=== PATIENT | male | born 1940 | race Caucasian/White ===

== ENCOUNTER 2016-11-13 17:47 | Emergency (ER) | payer MEDICARE ==
[~2016-11-13] VITALS: Ht 180.3 cm; Wt 86.9 kg
[~2016-11-13 17:47] MED LIST: ALBU18HF2 INH; ARFO15VI2 IH; BUME2TAB18 PO; CARB300C10 PO; CLOP75TA33 PO; DABI150C PO; DOCU-168 PO; ESCI20TA22 PO; FERR-67 PO; GABA-338 PO; HYDR-4074 PO; IPRA3AMP AEROSOL; ISOS120T10 PO; LEVO50TA11 PO; METO50TA5 PO; MORP15TA71 PO; NITR0.4T38 SL; PANT40TA PO; POTA20TA PO; PRED-221 PO; PRIM50TA27 PO; SIMV10TA76 PO; SODI45SP7 EA NOSTRIL; SUCR1TAB29 PO; TRAZ-58 PO; [UNRECOGNIZED DRUG - CODE] PO
[2016-11-13 17:52] VITALS: Ht 180.3 cm; Wt 86.9 kg
--- OUTSIDE RECORDS SUMMARY | 2016-11-13 17:52 | XMS REPORT ---
Author Author [place], [facility] - Organization Unknown Address Unknown Phone Unavailable Allergies, Adverse Reactions, Alerts * Sulfa(Sulfonamide Antibiotics) causes Severe Anaphylaxis. * No Latex Allergy. * No IV Contrast Allergy. * No Known Food Allergies. Problems * Acute Pain* Status:Active. * Carotid Artery Stenosis* Status:Active. * COPD w/ Acute Lower Respiratory Infection* Status:Active. * Coronary Artery Bypass Grafts x 3* Status:Active. * Diabetes Mellitus, Type 2* Status:Active. * Skin Integrity Impairment* Status:Active. Procedures No Procedures Documented. Medication It is the responsibility of the patient or patient customer contact representative to confirm the list of medications with either the patient's personal care provider or the patient's follow-up care provider to ensure the patient has an appropriate list of medications to take at home. Discharge medications* arformoterol (Brovana) 15 mcg/2 mL Solution for Nebulization, Ordered By: Lloyd Amirani Directions: 2 mL by inhalation twice a day * budesonide (Pulmicort) 0.5 mg/2 mL Suspension for Nebulization, Ordered By: Lloyd Amirani Directions: 2 by inhalation twice a day * escitalopram (LexAPRO) 20 mg Tablet, Ordered By: Lloyd Amirani Directions: 1 tablet oral daily * furosemide 40 mg Tablet, Ordered By: Lloyd Amirani Directions: 1 tablet oral daily * magnesium oxide 400 mg Tablet, Ordered By: Lloyd Amirani Directions: 1 tablet oral daily * metFORMIN 1,000 mg Tablet, Ordered By: Lloyd Amirani Directions: 1 tablet oral twice a day with or after meal * nitroglycerin 0.4 mg Tablet, Sublingual, Ordered By: Lloyd Amirani Directions: 1 tablet sublingual every 5 minutes PRN chest pain * pantoprazole 20 mg Tablet, Delayed Release (E.C.), Ordered By: Lloyd Amirani Directions: 1 tablet oral daily before dinner * potassium chloride 10 mEq Tablet Extended Release, Ordered By: Lloyd Pradhanrani Directions: 2 tablet oral daily * primiDONE 50 mg Tablet, Ordered By: Lloyd Pradhanrani Directions: 2 tablet oral daily at bedtime * simvastatin 10 mg Tablet, Ordered By: Lloyd Pradhanrani Directions: 1 tablet oral daily at bedtime * traMADol 50 mg Tablet, Ordered By: Lloyd Pradhanrani Directions: 1 tablet oral every six hours PRN pain * sucralfate 1 gram Tablet, Ordered By: Lloyd Pradhanrani Directions: 1 tablet oral daily at bedtime * traZODone 100 mg Tablet, Ordered By: Lloyd Pradhanrani Directions: 1 tablet oral daily at bedtime * amiodarone (Pacerone) 200 mg Tablet, Ordered By: Lloyd Pradhanrani Directions: 1 tablet oral twice a day * aspirin 81 mg Tablet, Chewable, Ordered By: Lloyd Pradhanrani Directions: 1 tablet oral Daily at 8 AM _ * bisacodyl 5 mg Tablet, Delayed Release (E.C.), Ordered By: Lloyd Pradhanrani Directions: 2 tablet oral twice a day PRN constipation * carvedilol 3.125 mg Tablet, Ordered By: Lloyd Pradhanrani Directions: 1 tablet oral twice a day during meal * docusate sodium (Stool Softener) 100 mg Capsule, Ordered By: Lloyd Pradhanrani Directions: 2 capsule oral daily Constipation Additional Instructions: START POD #1 HOLD FOR LOOSE STOOLS * HYDROcodone-acetaminophen 5 mg-500 mg Tablet, Ordered By: Lloyd Pradhanrani Directions: 1-2 TABS oral every four hours PRN MILD/MODERATE PAIN * polyethylene glycol 3350 17 gram/dose Powder, Ordered By: Lloyd Pradhanrani Directions: 1 each oral daily * Follow up with Dr. Pabon December 13 at 2:15 * Follow up with Dr. Mae in about 4 weeks. Office will call to schedule. If not please call the office at [phone] * Do not drive or ride in the front seat for 4 weeks. * Slowly increase activity, get plenty of rest * Refer to patient plan for more information * predniSONE 20 mg Tablet, Ordered By: Lloyd Valle Directions: -- oral daily Stopped medications* metoprolol succinate 50 mg Tablet Extended Release 24 hr Directions: 1 tablet oral daily Results LAB--BEDSIDE TESTING from 11/24/2012 7:20 AMGlucose NPT 96 mg/dL (70-100 mg/dL) LAB--BEDSIDE TESTING from 11/24/2012 9:51 AMBase Excess Arterial NPT 5 H (0-2 ) Calcium Ionized Arterial NPT 1.19 mmol/L (1.19-1.41 mmol/L) Glucose Arterial NPT 113 mg/dL H (70-100 mg/dL) Bicarbonate Arterial NPT 30 mEq/L H (22-26 mEq/L) HCT Arterial NPT 38.0 % HGB Arterial NPT 12.9 g/dL Potassium Arterial NPT 3.6 mEq/L (3.6-5.1 mEq/L) Sodium Arterial NPT 139 mEq/L (136-144 mEq/L) O2 Saturation Arterial NPT 100.0 % H (90.0-97.0 %) PCO2 Arterial NPT 51 mmHg H (35-45 mmHg) pH Arterial NPT 7.38 (7.35-7.45 ) PO2 Arterial NPT 455 mmHg H (80-100 mmHg) Total CO2 Arterial NPT 31 mEq/L H (23-27 mEq/L) Activated Clotting Time NPT 122 secs (100-146 secs) LAB--BEDSIDE TESTING from 11/24/2012 12:13 PMActivated Clotting Time NPT 567 secs H (100-146 secs) LAB--BEDSIDE TESTING from 11/24/2012 12:14 PMBase Excess Arterial NPT 12 H (0-2 ) Calcium Ionized Arterial NPT 1.18 mmol/L L (1.19-1.41 mmol/L) Glucose Arterial NPT 160 mg/dL H (70-100 mg/dL) Bicarbonate Arterial NPT 37 mEq/L H (22-26 mEq/L) HCT Arterial NPT 38.0 % HGB Arterial NPT 12.9 g/dL Potassium Arterial NPT 4.1 mEq/L (3.6-5.1 mEq/L) Sodium Arterial NPT 140 mEq/L (136-144 mEq/L) O2 Saturation Arterial NPT 100.0 % H (90.0-97.0 %) PCO2 Arterial NPT 64 mmHg HH (35-45 mmHg) pH Arterial NPT 7.37 (7.35-7.45 ) PO2 Arterial NPT 494 mmHg H (80-100 mmHg) Total CO2 Arterial NPT 39 mEq/L H (23-27 mEq/L) LAB--BEDSIDE TESTING from 11/24/2012 12:38 PMActivated Clotting Time NPT 611 secs H (100-146 secs) LAB--BEDSIDE TESTING from 11/24/2012 12:39 PMBase Excess Arterial NPT 2 (0-2 ) Calcium Ionized Arterial NPT 1.05 mmol/L L (1.19-1.41 mmol/L) Glucose Arterial NPT 128 mg/dL H (70-100 mg/dL) Bicarbonate Arterial NPT 27 mEq/L H (22-26 mEq/L) HCT Arterial NPT 32.0 % HGB Arterial NPT 10.9 g/dL Potassium Arterial NPT 3.7 mEq/L (3.6-5.1 mEq/L) Sodium Arterial NPT 142 mEq/L (136-144 mEq/L) O2 Saturation Arterial NPT 100.0 % H (90.0-97.0 %) PCO2 Arterial NPT 45 mmHg (35-45 mmHg) pH Arterial NPT 7.39 (7.35-7.45 ) PO2 Arterial NPT 407 mmHg H (80-100 mmHg) Total CO2 Arterial NPT 28 mEq/L H (23-27 mEq/L) LAB--BEDSIDE TESTING from 11/24/2012 1:10 PMActivated Clotting Time NPT 485 secs H (100-146 secs) LAB--BEDSIDE TESTING from 11/24/2012 1:11 PMBase Excess Arterial NPT 3 H (0-2 ) Calcium Ionized Arterial NPT 1.08 mmol/L L (1.19-1.41 mmol/L) Glucose Arterial NPT 94 mg/dL (70-100 mg/dL) Bicarbonate Arterial NPT 27 mEq/L H (22-26 mEq/L) HCT Arterial NPT 31.0 % HGB Arterial NPT 10.5 g/dL Potassium Arterial NPT 3.7 mEq/L (3.6-5.1 mEq/L) Sodium Arterial NPT 143 mEq/L (136-144 mEq/L) O2 Saturation Arterial NPT 100.0 % H (90.0-97.0 %) PCO2 Arterial NPT 38 mmHg (35-45 mmHg) pH Arterial NPT 7.45 (7.35-7.45 ) PO2 Arterial NPT 319 mmHg H (80-100 mmHg) Total CO2 Arterial NPT 28 mEq/L H (23-27 mEq/L) LAB--BEDSIDE TESTING from 11/24/2012 1:41 PMActivated Clotting Time NPT 468 secs H (100-146 secs) LAB--BEDSIDE TESTING from 11/24/2012 1:42 PMBase Excess Arterial NPT 4 H (0-2 ) Calcium Ionized Arterial NPT 1.03 mmol/L L (1.19-1.41 mmol/L) Glucose Arterial NPT 105 mg/dL H (70-100 mg/dL) Bicarbonate Arterial NPT 27 mEq/L H (22-26 mEq/L) HCT Arterial NPT 29.0 % HGB Arterial NPT 9.9 g/dL Potassium Arterial NPT 3.7 mEq/L (3.6-5.1 mEq/L) Sodium Arterial NPT 143 mEq/L (136-144 mEq/L) O2 Saturation Arterial NPT 100.0 % H (90.0-97.0 %) PCO2 Arterial NPT 36 mmHg (35-45 mmHg) pH Arterial NPT 7.49 H (7.35-7.45 ) PO2 Arterial NPT 316 mmHg H (80-100 mmHg) Total CO2 Arterial NPT 28 mEq/L H (23-27 mEq/L) LAB--BEDSIDE TESTING from 11/24/2012 1:53 PMActivated Clotting Time NPT 600 secs H (100-146 secs) LAB--BEDSIDE TESTING from 11/24/2012 2:10 PMActivated Clotting Time NPT 540 secs H (100-146 secs) LAB--BEDSIDE TESTING from 11/24/2012 2:11 PMBase Excess Arterial NPT 3 H (0-2 ) Calcium Ionized Arterial NPT 1.02 mmol/L L (1.19-1.41 mmol/L) Glucose Arterial NPT 130 mg/dL H (70-100 mg/dL) Bicarbonate Arterial NPT 27 mEq/L H (22-26 mEq/L) HCT Arterial NPT 29.0 % HGB Arterial NPT 9.9 g/dL Potassium Arterial NPT 3.7 mEq/L (3.6-5.1 mEq/L) Sodium Arterial NPT 142 mEq/L (136-144 mEq/L) O2 Saturation Arterial NPT 100.0 % H (90.0-97.0 %) PCO2 Arterial NPT 35 mmHg (35-45 mmHg) pH Arterial NPT 7.49 H (7.35-7.45 ) PO2 Arterial NPT 277 mmHg H (80-100 mmHg) Total CO2 Arterial NPT 28 mEq/L H (23-27 mEq/L) LAB--BEDSIDE TESTING from 11/24/2012 2:36 PMActivated Clotting Time NPT 111 secs (100-146 secs) LAB--BEDSIDE TESTING from 11/24/2012 2:37 PMBase Excess Arterial NPT 2 (0-2 ) Calcium Ionized Arterial NPT 1.32 mmol/L (1.19-1.41 mmol/L) Glucose Arterial NPT 119 mg/dL H (70-100 mg/dL) Bicarbonate Arterial NPT 28 mEq/L H (22-26 mEq/L) HCT Arterial NPT 28.0 % HGB Arterial NPT 9.5 g/dL Potassium Arterial NPT 3.4 mEq/L L (3.6-5.1 mEq/L) Sodium Arterial NPT 145 mEq/L H (136-144 mEq/L) O2 Saturation Arterial NPT 100.0 % H (90.0-97.0 %) PCO2 Arterial NPT 50 mmHg H (35-45 mmHg) pH Arterial NPT 7.35 (7.35-7.45 ) PO2 Arterial NPT 376 mmHg H (80-100 mmHg) Total CO2 Arterial NPT 29 mEq/L H (23-27 mEq/L) LAB--BEDSIDE TESTING from 11/24/2012 3:16 PMBase Excess Arterial NPT 3 H (0-2 ) Calcium Ionized Arterial NPT 1.23 mmol/L (1.19-1.41 mmol/L) Glucose Arterial NPT 132 mg/dL H (70-100 mg/dL) Bicarbonate Arterial NPT 29 mEq/L H (22-26 mEq/L) HCT Arterial NPT 35.0 % HGB Arterial NPT 11.9 g/dL Potassium Arterial NPT 4.1 mEq/L (3.6-5.1 mEq/L) Sodium Arterial NPT 143 mEq/L (136-144 mEq/L) O2 Saturation Arterial NPT 100.0 % H (90.0-97.0 %) PCO2 Arterial NPT 58 mmHg HH (35-45 mmHg) pH Arterial NPT 7.31 L (7.35-7.45 ) PO2 Arterial NPT 418 mmHg H (80-100 mmHg) Total CO2 Arterial NPT 31 mEq/L H (23-27 mEq/L) LAB--BEDSIDE TESTING from 11/24/2012 3:39 PMGlucose NPT 134 mg/dL H (70-100 mg/ dL) LAB--BEDSIDE TESTING from 11/24/2012 9:40 PMGlucose NPT 181 mg/dL H (70-100 mg/ dL) LAB--BEDSIDE TESTING from 11/24/2012 10:42 PMGlucose NPT 164 mg/dL H (70-100 mg/ dL) LAB--BEDSIDE TESTING from 11/24/2012 11:55 PMGlucose NPT 163 mg/dL H (70-100 mg/ dL) LAB--BEDSIDE TESTING from 11/25/2012 1:12 AMGlucose NPT 142 mg/dL H (70-100 mg/ dL) LAB--BEDSIDE TESTING from 11/25/2012 4:35 AMGlucose NPT 134 mg/dL H (70-100 mg/ dL) LAB--BEDSIDE TESTING from 11/25/2012 10:37 AMGlucose NPT 135 mg/dL H (70-100 mg/ dL) LAB--BEDSIDE TESTING from 11/25/2012 2:53 PMGlucose NPT 152 mg/dL H (70-100 mg/ dL) LAB--BEDSIDE TESTING from 11/25/2012 9:44 PMGlucose NPT 156 mg/dL H (70-100 mg/ dL) LAB--BEDSIDE TESTING from 11/26/2012 6:10 AMGlucose NPT 121 mg/dL H (70-100 mg/ dL) LAB--BEDSIDE TESTING from 11/26/2012 11:24 AMGlucose NPT 121 mg/dL H (70-100 mg/ dL) LAB--BEDSIDE TESTING from 11/26/2012 6:37 PMGlucose NPT 162 mg/dL H (70-100 mg/ dL) LAB--BEDSIDE TESTING from 11/26/2012 9:47 PMGlucose NPT 123 mg/dL H (70-100 mg/ dL) LAB--BEDSIDE TESTING from 11/27/2012 6:02 AMGlucose NPT 90 mg/dL (70-100 mg/dL) LAB--BEDSIDE TESTING from 11/27/2012 11:57 AMGlucose NPT 157 mg/dL H (70-100 mg/ dL) LAB--BEDSIDE TESTING from 11/27/2012 5:20 PMGlucose NPT 178 mg/dL H (70-100 mg/ dL) LAB--BEDSIDE TESTING from 11/27/2012 9:35 PMGlucose NPT 120 mg/dL H (70-100 mg/ dL) LAB--BEDSIDE TESTING from 11/28/2012 5:07 AMGlucose NPT 101 mg/dL H (70-100 mg/ dL) LAB--BEDSIDE TESTING from 11/28/2012 12:37 PMGlucose NPT 151 mg/dL H (70-100 mg/ dL) LAB--BEDSIDE TESTING from 11/28/2012 2:48 PMGlucose NPT 138 mg/dL H (70-100 mg/ dL) LAB--BEDSIDE TESTING from 11/28/2012 8:07 PMGlucose NPT 159 mg/dL H (70-100 mg/ dL) LAB--BEDSIDE TESTING from 11/29/2012 5:22 AMGlucose NPT 104 mg/dL H (70-100 mg/ dL) LAB--BEDSIDE TESTING from 11/29/2012 11:32 AMGlucose NPT 121 mg/dL H (70-100 mg/ dL) LAB--BEDSIDE TESTING from 11/29/2012 4:31 PMGlucose NPT 122 mg/dL H (70-100 mg/ dL) LAB--BEDSIDE TESTING from 11/29/2012 9:40 PMGlucose NPT 122 mg/dL H (70-100 mg/ dL) LAB--BEDSIDE TESTING from 11/30/2012 5:35 AMGlucose NPT 110 mg/dL H (70-100 mg/ dL) LAB--BEDSIDE TESTING from 11/30/2012 11:47 AMGlucose NPT 136 mg/dL H (70-100 mg/ dL) LAB--BLOOD BANK from 11/24/2012 7:20 AMABO and Rh A POS Antibody Screen (Indirect Bud) NEG LAB--BLOOD BANK from 11/24/2012 8:01 AMRed Blood Cells Leukoreduced ( Preliminary Result)[facility] -1 [id number] selected 11/24/12 08:01 MSEVE [facility] -1 [id number] selected 11/24/12 08:01 MSEVE LAB--BLOOD BANK from 11/28/2012 1:10 AMRed Blood Cells Leukoreduced LAB--CHEMISTRY from 11/24/2012 3:34 PMAnion Gap 8 (3-20 ) BUN 9 mg/dL (4-20 mg/dL) Calcium 8.2 mg/dL L (8.6-10.0 mg/dL) Calcium Ionized 1.25 mmol/L (1.19-1.41 mmol/L) Chloride 107 mEq/L (99-109 mEq/L) CO2 26 mEq/L (22-32 mEq/L) Creatinine 0.94 mg/dL (0.64-1.27 mg/dL) eGFR >60 (>60- ) Glucose 139 mg/dL H (70-100 mg/dL) Potassium 4.3 mEq/L (3.6-5.1 mEq/L) Magnesium 2.2 mg/dL (1.8-2.5 mg/dL) Sodium 141 mEq/L (136-144 mEq/L) LAB--CHEMISTRY from 11/25/2012 3:57 AMAnion Gap 6 (3-20 ) BUN 13 mg/dL (4-20 mg/dL) Calcium 7.8 mg/dL L (8.6-10.0 mg/dL) Calcium Ionized 1.19 mmol/L (1.19-1.41 mmol/L) Chloride 112 mEq/L H (99-109 mEq/L) CO2 26 mEq/L (22-32 mEq/L) Creatinine 1.07 mg/dL (0.64-1.27 mg/dL) eGFR >60 (>60- ) Glucose 155 mg/dL H (70-100 mg/dL) Potassium 4.0 mEq/L (3.6-5.1 mEq/L) Magnesium 2.0 mg/dL (1.8-2.5 mg/dL) Sodium 144 mEq/L (136-144 mEq/L) LAB--CHEMISTRY from 11/26/2012 5:25 AMAnion Gap 5 (3-20 ) BUN 11 mg/dL (4-20 mg/dL) Calcium 7.9 mg/dL L (8.6-10.0 mg/dL) Calcium Ionized 1.20 mmol/L (1.19-1.41 mmol/L) Chloride 108 mEq/L (99-109 mEq/L) CO2 27 mEq/L (22-32 mEq/L) Creatinine 0.90 mg/dL (0.64-1.27 mg/dL) eGFR >60 (>60- ) Glucose 145 mg/dL H (70-100 mg/dL) Potassium 3.7 mEq/L (3.6-5.1 mEq/L) Magnesium 1.9 mg/dL (1.8-2.5 mg/dL) Sodium 140 mEq/L (136-144 mEq/L) LAB--CHEMISTRY from 11/28/2012 9:33 AMAnion Gap 7 (3-20 ) Albumin 2.8 g/dL L (3.5-4.8 g/dL) Alkaline Phosphatase 52 U/L (26-104 U/L) ALT (SGPT) 12 U/L L (17-63 U/L) AST (SGOT) 14 U/L L (15-41 U/L) Bilirubin Total 0.8 mg/dL (0.2-1.2 mg/dL) BUN 10 mg/dL (4-20 mg/dL) Calcium 8.3 mg/dL L (8.6-10.0 mg/dL) Chloride 106 mEq/L (99-109 mEq/L) CO2 28 mEq/L (22-32 mEq/L) Creatinine 0.79 mg/dL (0.64-1.27 mg/dL) eGFR >60 (>60- ) Globulin 2.6 g/dL (1.9-4.3 g/dL) Glucose 96 mg/dL (70-100 mg/dL) Potassium 3.7 mEq/L (3.6-5.1 mEq/L) Magnesium 1.9 mg/dL (1.8-2.5 mg/dL) Sodium 141 mEq/L (136-144 mEq/L) Protein 5.4 g/dL L (6.1-7.9 g/dL) LAB--CHEMISTRY from 11/29/2012 6:19 AMAnion Gap 6 (3-20 ) BUN 10 mg/dL (4-20 mg/dL) Calcium 8.3 mg/dL L (8.6-10.0 mg/dL) Chloride 108 mEq/L (99-109 mEq/L) CO2 28 mEq/L (22-32 mEq/L) Creatinine 0.81 mg/dL (0.64-1.27 mg/dL) eGFR >60 (>60- ) Glucose 97 mg/dL (70-100 mg/dL) Potassium 3.5 mEq/L L (3.6-5.1 mEq/L) Sodium 142 mEq/L (136-144 mEq/L) LAB--CHEMISTRY from 11/30/2012 4:37 AMAnion Gap 7 (3-20 ) BUN 14 mg/dL (4-20 mg/dL) Calcium 8.4 mg/dL L (8.6-10.0 mg/dL) Chloride 108 mEq/L (99-109 mEq/L) CO2 25 mEq/L (22-32 mEq/L) Creatinine 0.78 mg/dL (0.64-1.27 mg/dL) eGFR >60 (>60- ) Glucose 96 mg/dL (70-100 mg/dL) Potassium 3.9 mEq/L (3.6-5.1 mEq/L) Magnesium 2.0 mg/dL (1.8-2.5 mg/dL) Sodium 140 mEq/L (136-144 mEq/L) LAB--COAG STUDIES from 11/24/2012 2:43 PMFibrinogen 211 mg/dL (187-520 mg/dL) INR 1.3 H (0.9-1.2 ) PTT 29.1 sec (25.0-35.0 sec) LAB--COAG STUDIES from 11/29/2012 9:28 AMINR 1.0 (0.9-1.2 ) LAB--COAG STUDIES from 11/30/2012 4:37 AMINR 1.0 (0.9-1.2 ) LAB--HEMATOLOGY from 11/24/2012 2:43 PMPlatelet Count 211 K/uL (150-400 K/uL) LAB--HEMATOLOGY from 11/24/2012 3:34 PMAbsolute Basophils 0.00 THOUS (0.00-0.20 THOUS) Absolute Eosinophils 0.00 THOUS (0.00-0.50 THOUS) Absolute Lymphocytes 0.45 THOUS L (0.80-3.30 THOUS) Absolute Monocytes 1.13 THOUS H (0.30-1.00 THOUS) Absolute Neutrophils 21.02 THOUS H (1.90-7.00 THOUS) HCT 38.0 % L (42.0-52.0 %) HGB 12.0 g/dl L (14.0-18.0 g/dl) MCH 26.1 pg L (27.0-32.0 pg) MCHC 31.6 g/dL L (32.0-36.0 g/dL) MCV 82.8 fL (82.0-99.0 fL) MPV 9.1 fL L (9.4-12.3 fL) Platelet Count 223 K/uL (150-400 K/uL) RBC 4.59 M/uL L (4.60-6.20 M/uL) RDW 15.2 % H (11.5-14.5 %) WBC 22.6 K/uL H (4.8-10.8 K/uL) Bands 16 % H (0-8 %) Basophils 0 % (0-2 %) Eosinophils 0 % (0-4 %) Lymphocytes 2 % L (20-46 %) Monocytes 5 % (4-11 %) Nucleated RBC Automated 0.0 /100 WBC (0 /100 WBC) Differential Manual A Neutrophils 77 % H (51-75 %) LAB--HEMATOLOGY from 11/25/2012 3:57 AMAbsolute Basophils 0.04 THOUS (0.00-0.20 THOUS) Absolute Eosinophils 0.02 THOUS (0.00-0.50 THOUS) Absolute Lymphocytes 1.69 THOUS (0.80-3.30 THOUS) Absolute Monocytes 1.63 THOUS H (0.30-1.00 THOUS) Absolute Neutrophils 8.57 THOUS H (1.90-7.00 THOUS) HCT 35.4 % L (42.0-52.0 %) HGB 11.2 g/dl L (14.0-18.0 g/dl) MCH 26.7 pg L (27.0-32.0 pg) MCHC 31.6 g/dL L (32.0-36.0 g/dL) MCV 84.5 fL (82.0-99.0 fL) MPV 9.9 fL (9.4-12.3 fL) Platelet Count 243 K/uL (150-400 K/uL) RBC 4.19 M/uL L (4.60-6.20 M/uL) RDW 15.5 % H (11.5-14.5 %) WBC 12.0 K/uL H (4.8-10.8 K/uL) Basophils 0 % (0-2 %) Eosinophils 0 % (0-4 %) Immature Granulocytes 0.4 % (0.0-1.0 %) Lymphocytes 14 % L (20-46 %) Monocytes 14 % H (4-11 %) Nucleated RBC Automated 0.0 /100 WBC (0 /100 WBC) Neutrophils 71 % (51-75 %) LAB--HEMATOLOGY from 11/26/2012 5:25 AMHCT 34.8 % L (42.0-52.0 %) HGB 10.7 g/dl L (14.0-18.0 g/dl) MCH 26.3 pg L (27.0-32.0 pg) MCHC 30.7 g/dL L (32.0-36.0 g/dL) MCV 85.5 fL (82.0-99.0 fL) MPV 10.1 fL (9.4-12.3 fL) Platelet Count 238 K/uL (150-400 K/uL) RBC 4.07 M/uL L (4.60-6.20 M/uL) RDW 15.8 % H (11.5-14.5 %) WBC 13.3 K/uL H (4.8-10.8 K/uL) LAB--HEMATOLOGY from 11/28/2012 9:33 AMHCT 35.1 % L (42.0-52.0 %) HGB 10.9 g/dl L (14.0-18.0 g/dl) MCH 26.0 pg L (27.0-32.0 pg) MCHC 31.1 g/dL L (32.0-36.0 g/dL) MCV 83.6 fL (82.0-99.0 fL) MPV 9.9 fL (9.4-12.3 fL) Platelet Count 310 K/uL (150-400 K/uL) RBC 4.20 M/uL L (4.60-6.20 M/uL) RDW 15.6 % H (11.5-14.5 %) WBC 8.4 K/uL (4.8-10.8 K/uL) LAB--HEMATOLOGY from 11/29/2012 6:19 AMHCT 34.1 % L (42.0-52.0 %) HGB 10.6 g/dl L (14.0-18.0 g/dl) MCH 25.9 pg L (27.0-32.0 pg) MCHC 31.1 g/dL L (32.0-36.0 g/dL) MCV 83.4 fL (82.0-99.0 fL) MPV 9.6 fL (9.4-12.3 fL) Platelet Count 346 K/uL (150-400 K/uL) RBC 4.09 M/uL L (4.60-6.20 M/uL) RDW 15.8 % H (11.5-14.5 %) WBC 8.2 K/uL (4.8-10.8 K/uL) LAB--HEMATOLOGY from 11/30/2012 4:37 AMHCT 33.5 % L (42.0-52.0 %) HGB 10.7 g/dl L (14.0-18.0 g/dl) MCH 26.6 pg L (27.0-32.0 pg) MCHC 31.9 g/dL L (32.0-36.0 g/dL) MCV 83.1 fL (82.0-99.0 fL) MPV 9.8 fL (9.4-12.3 fL) Platelet Count 376 K/uL (150-400 K/uL) RBC 4.03 M/uL L (4.60-6.20 M/uL) RDW 15.8 % H (11.5-14.5 %) WBC 8.9 K/uL (4.8-10.8 K/uL) LAB--MICROBIOLOGY from 11/24/2012 7:28 AMMRSA Surveillance Culture A Source: Nares Collected: 11/24/12 07:28 Site: Received : 11/24/12 07:45 Order#: [id number] Surveillance Culture FINAL 11/25/12 08:35 Positive for Methicillin Resistant Staphylococc LORENZANA FOR RESULTS: * - NEW RESULT - RESULT WAS MODIFIED AFTER FINAL STATUS SET
--- OUTSIDE RECORDS SUMMARY | 2016-11-13 17:52 | XMS REPORT | Continuity of Care Document ---
Author Author [facility] Organization [facility] Address Unknown Phone Unavailable Allergies Active Description Code Type Severity Reaction Onset Reported/Identified Relationship to Patient Clinical Status Yes Sulfa(Sulfonamide Antibiotics) Drug Allergy Severe Anaphylaxis 01/05/2012 Yes No Known Food Allergies Food Allergy 11/23/2012 Yes sulfamethoxazole NKMA Severe Anaphylaxis 12/05/2013 Medications Problems Date Dx Coded Attending Type Code Diagnosis Diagnosed By 05/15/2012 Fredy Quintana MD Final 038.9 SEPTICEMIA NOS 05/15/2012 Fredy Quintana MD Final 250.62 DM2/NOS W NEUR MANIF UNC 05/15/2012 Fredy Quintana MD Final 272.4 HYPERLIPIDEMIA NEC NOS 05/15/2012 Fredy Quintana MD Final 311 DEPRESSIVE DISORDER NEC 05/15/2012 Fredy Quintana MD Final 333.1 TREMOR NEC 05/15/2012 Fredy Quintana MD Final 357.2 NEUROPATHY IN DIABETES 05/15/2012 Fredy Quintana MD Final 401.9 HYPERTENSION NOS 05/15/2012 Fredy Quintana MD Final 416.8 CHR PULMON HEART DIS NEC 05/15/2012 Fredy Quintana MD Final 433.10 CAROTID OCCL S INFARCT 05/15/2012 Fredy Quintana MD Final 486 PNEUMONIA ORGANISM NOS 05/15/2012 Fredy Quintana MD Final 491.21 OCB W EXACERBATION 05/15/2012 Fredy Quintana MD Final 518.84 AC CHR RESP FAILURE 05/15/2012 Fredy Quintana MD Final 530.81 ESOPHAGEAL REFLUX 05/15/2012 Fredy Quintana MD Final 553.3 DIAPHRAGMATIC HERNIA 05/15/2012 Fredy Quintana MD Final 600.00 PROS HYPERTR S OBST/LUTS 05/15/2012 Fredy Quintana MD Final 715.90 OSTEOARTHOSIS NOS-NOS 05/15/2012 Fredy Quintana MD Final 785.0 TACHYCARDIA NOS 05/15/2012 Fredy Quintana MD Admitting 786.59 CHEST PAIN NEC 05/15/2012 Fredy Quintana MD Final 995.92 SEVERE SEPSIS 11/22/2012 Wilma Pabon MD Final 440.0 AORTIC ATHEROSCLEROSIS 11/22/2012 Wilma Pabon MD Final 447.1 ARTERIAL STRICTURE 11/22/2012 Wilma Pabon MD Final 496 CHRONIC AIRWAY OBSTR NEC 11/22/2012 Wilma Pabon MD Final V72.63 PRE-PX LABORATORY EXAM 11/22/2012 Wilma Pabon MD Final V72.81 PREOP CV EXAM 11/22/2012 Wilma Pabon MD Final V72.83 PREOP EXAMINATION NEC 11/24/2012 Lloyd Valle MD Final 250.60 DM2/NOS W NEUR MANIF NSU 11/24/2012 Lloyd Valle MD Final 272.4 HYPERLIPIDEMIA NEC NOS 11/24/2012 Lloyd Valle MD Final 285.1 ACUTE POSTHEMOR ANEMIA 11/24/2012 Lloyd Valle MD Final 357.2 NEUROPATHY IN DIABETES 11/24/2012 Lloyd Valle MD Final 401.9 HYPERTENSION NOS 11/24/2012 Lloyd Valle MD Final 414.01 COR -[place] VESSEL 11/24/2012 Lloyd Valle MD Final 416.8 CHR PULMON HEART DIS NEC 11/24/2012 Lloyd Valle MD Final 427.31 ATRIAL FIBRILLATION 11/24/2012 Lloyd Valle MD Final 440.0 AORTIC ATHEROSCLEROSIS 11/24/2012 Lloyd Valle MD Final 496 CHRONIC AIRWAY OBSTR NEC 11/24/2012 Lloyd Valle MD Final 518.83 CHR RESPIRATORY FAILURE 03/21/2015 Lloyd Valle MD Final 053.13 POSTHERPETIC POLYNEUROPATHY 03/21/2015 Lloyd Valle MD Final 250.00 Diabetes mellitus without mention of complication, type II or unspecified t 03/21/2015 Lloyd Valle MD Final 278.01 MORBID OBESITY 03/21/2015 Lloyd Valle MD Final 311 DEPRESSIVE DISORDER, NOT ELSEWHERE CLASSIFIED 03/21/2015 Lloyd Valle MD Final 414.01 CORONARY ATHEROSCLEROSIS OF [place] CORONARY ARTERY 03/21/2015 Lloyd Valle MD Final 427.31 ATRIAL FIBRILLATION 03/21/2015 Lloyd Valle MD Final 440.23 ATHEROSCLEROSIS OF [place] ARTERIES OF THE EXTREMITIES WITH ULCERATION 03/21/2015 Lloyd Valle MD Final 491.21 Obstructive chronic bronchitis with ( acute) exacerbation 03/21/2015 Lloyd Valle MD Admitting 786.50 UNSPECIFIED CHEST PAIN 03/21/2015 Lloyd Valle MD Final V58.61 Long-Term (Current) Use of Anticoagulants Procedures Code Description Performed By Performed On 36.13 AO-COR BYPASS-3 COR ART Wilma Pabon MD 11/24/2012 39.61 EXTRACORPOREAL CIRCULAT Wilma Pabon MD 11/24/2012 86.11 Closed Biopsy of Skin and Subcutaneous Tissue 03/11/2015 Results Encounters ACCT No. Visit Date/Time Discharge Status Pt. Type Provider Facility Loc./Unit Complaint [id number] 11/24/2012 06:55:00 2012 15:01:00 DIS Inpatient Lloyd Valle MD [facility] F4 [id number] 11/22/2012 16:33:00 2012 23:59:59 CLS Outpatient Wilma Pabon MD [facility] FO [id number] 05/15/2012 10:07:00 2011 14:50:00 DIS Inpatient Fredy Quintana MD [facility] [id number]
--- OUTSIDE RECORDS SUMMARY | 2016-11-13 17:52 | XMS REPORT | Continuity of Care Document ---
Author Author [facility] Organization [facility] Address Unknown Phone Unavailable Support Name Relationship Address Phone KIET GARRIDO DO Caregiver [facility] [address] [facility] [address] [place] [phone] LYNNETTE LUKE Next Of Kin [address] [place], [place] [id number] Insurance Providers Payer Name Policy Number Subscriber Name Relationship Medicare [id number] Benito Luke 18 Self Advance Directives Directive Response Recorded Date/Time Ordered Resuscitation Status Full Code 10/29/14 6:17pm Resuscitation Documents on File No 10/29/14 6:08pm Chief Complaint and Reason for Visit Chief Complaint ANGINA, CORONARY ARTERY DISEASE Reason for Visit S/P CABG (coronary artery bypass graft) Angina pectoris, unstable Problems Medical Problems Problem Onset Date Status Cellulitis Unknown Active Sepsis Unknown Resolved Tremor Unknown Active Gastroenteritis Unknown Active Dehydration Unknown Active Gastroenteritis Unknown Resolved Diabetes Unknown Active HTN (hypertension) Unknown Active CAD (coronary artery disease) Unknown Active COPD (chronic obstructive pulmonary disease) Unknown Active Chronic respiratory insufficiency Unknown Active Hypercholesteremia Unknown Active Encephalopathy acute Unknown Active Bandemia Unknown Active Hypotension Unknown Resolved Physical debility Unknown Active Angina pectoris, unstable Unknown Active Surgical Problems Problem Onset Date Recorded Date/Time Status S/P CABG (coronary artery bypass graft) Unknown 10/30/2014 9:06am Active Medications Medication Dose Route Sig Days/Qty Instructions Order Date Discontinued Date Status Nitroglycerin 0.3 Mg SL NEEDED 06/25/09 01/04/12 Discontinued Aspirin 81 Mg PO DAILY 05/30/10 01/04/12 Discontinued Digoxin 250 Mcg PO DAILY 05/30/10 08/18/10 Discontinued Arformoterol Tartrate 15 Mcg IH Q12H 11/27/08 12/11/08 Discontinued Calcium Carbonate/Vitamin D3 1 Tab PO DAILY 05/30/10 01/04/12 Discontinued Magnesium Oxide 400 Mg PO TWICE A DAY 05/30/10 01/04/12 Discontinued Potassium 10 Meq PO DAILY 05/30/10 01/04/12 Discontinued Prednisone 20 Mg PO DAILY 05/30/10 01/04/12 Discontinued Sertraline Hcl 100 Mg PO DAILY 11/27/08 12/11/08 Discontinued Terazosin Hcl 1 Mg PO BEDTIME 05/30/10 01/04/12 Discontinued Trazodone Hcl 100 Mg PO BEDTIME 05/30/10 01/04/12 Discontinued Albuterol 17 Gm IH DAILY 05/30/10 01/04/12 Discontinued Rabeprazole Sodium 20 Mg PO DAILY 11/27/08 12/11/08 Discontinued Budesonide 0.5 Mg NEB TWICE A DAY 06/26/09 01/04/12 Discontinued Lisinopril 2.5 Mg PO DAILY 05/30/10 01/04/12 Discontinued Isosorbide Mononitrate 60 Mg PO DAILY 05/30/10 01/04/12 Discontinued Metoprolol Tartrate 50 Mg PO TWICE A DAY 05/30/10 01/04/12 Discontinued Furosemide 40 Mg PO IN AM 06/26/09 01/04/12 Discontinued Furosemide 20 Mg PO DAILY AT 1400 06/26/09 05/30/10 Discontinued Sucralfate 1 G PO BEDTIME 05/30/10 01/04/12 Discontinued Diltiazem Hcl 180 Mg PO DAILY 06/26/09 01/04/12 Discontinued Citalopram Hydrobromide 40 Mg PO DAILY 05/30/10 01/04/12 Discontinued Omeprazole Magnesium 40 Mg PO DAILY 05/30/10 01/04/12 Discontinued Arformoterol Tartrate 15 Mcg NEB TWICE A DAY 05/30/10 01/04/12 Discontinued Furosemide 20 Mg PO TWICE A DAY 05/30/10 01/04/12 Discontinued Metformin Hcl 500 Mg PO TWICE A DAY 10/02/11 01/04/12 Discontinued Simvastatin 40 Mg PO DAILY 10/02/11 01/04/12 Discontinued Prednisone 20 Mg PO DAILY 01/04/12 Active Trazodone Hcl 100 Mg PO BEDTIME 01/04/12 Active Terazosin Hcl 1 Mg PO BEDTIME 01/04/12 06/16/12 Discontinued Metoprolol Succinate 50 Mg PO DAILY 01/04/12 12/04/12 Discontinued Metformin Hcl 1,000 Mg PO TWICE A DAY 01/04/12 Active Citalopram Hydrobromide 40 Mg PO BEDTIME 01/04/12 12/04/12 Discontinued Sucralfate 1 G PO BEDTIME 01/04/12 Active Omeprazole 20 Mg PO DAILY 01/04/12 12/04/12 Discontinued Lisinopril 2.5 Mg PO DAILY 01/04/12 12/04/12 Discontinued Magnesium Oxide 400 Mg PO TWICE A DAY 01/04/12 Active Albuterol Sulfate 5 Mg IH NEEDED 01/04/12 Active Arformoterol Tartrate 15 Mcg IH TWICE A DAY 01/04/12 Active Budesonide 0.5 Mg IH TWICE A DAY 01/04/12 10/30/14 Discontinued [Vitamin D] 05/26/12 12/04/12 Discontinued [Lexapro] 05/26/12 12/04/12 Discontinued Clindamycin Hcl 300 Mg PO THREE TIMES A DAY 4 Days 06/19/12 11/14/12 Discontinued Tramadol Hcl 50 Mg PO NEEDED 11/14/12 12/05/12 Discontinued Isosorbide Mononitrate 60 Mg PO DAILY 11/14/12 12/04/12 Discontinued Nitroglycerin 0.4 Mg SL NEEDED 11/14/12 12/05/12 Discontinued Amiodarone Hcl 200 Mg PO TWICE A DAY 12/04/12 10/29/14 Discontinued Escitalopram Oxalate 20 Mg PO DAILY 12/04/12 Active Aspirin 325 Mg PO DAILY 08/11/13 Active Pantoprazole Sodium 40 Mg PO TWICE DAILY ON EMPTY STOMACH 08/11/13 Active Simvastatin 10 Mg PO BEDTIME 08/11/13 Active Sucralfate 1 G PO 08/11/13 03/28/14 Discontinued Primidone 25 Mg PO BEDTIME 08/11/13 Active Polyethylene Glycol 3350 17 Gm PO NEEDED 08/11/13 Active Potassium Chloride 40 Meq PO GIVE WITH BREAKFAST 1 Qty 08/11/13 Active Albuterol Sulfate/Ipratropium 3 Ml Resp.T Tx Every 6 Hours 08/11/13 Active Bacitracin/Polymyxin B Sulfate 1 Udpkt TP DAILY 08/11/13 03/28/14 Discontinued Acetaminophen 1,000 Mg PO Q4-6H PRN 08/11/13 Active Magnesium Hydroxide/Al Hydrox 30 Ml PO Q3-4 PRN 08/11/13 Active Ondansetron Hcl/Pf 4 Mg IJ Q4-6HPRN 08/11/13 07/17/14 Discontinued Nitroglycerin 0.4 Mg SL Q5MPRN 08/11/13 Active Furosemide 1 Tab PO TWICE A DAY 03/27/14 Active Ondansetron 4 Mg PO EVERY SIX HOURS PRN NAUSEA &/OR VOMITING 30 Qty 04/2207/17/14 Discontinued Ondansetron HCl 4 Mg PO EVERY 4 HOURS PRN NAUSEA &/OR VOMITING 30 Qty 07/17/14 Active Acyclovir 800 Mg PO FIVE TIMES A DAY 10 Days 10/30/14 Active Social History Social History Problem Response Recorded Date/Time Chewing Tobacco Status No 09/01/2013 1:29pm Hx Substance Use No 07/14/2014 4:35pm Hx Alcohol Use No 07/14/2014 4:35pm Has the pt used tobacco in the last 12 months No 10/29/2014 6:09pm Tobacco Usage none 10/30/2014 9:53am Query Response Start Date Stop Date Smoking Status Former smoker Hospital Discharge Instructions Instructions: Care Instructions: Reason for Hospitalization: Chest pain, Left Heart Catheterization I was in the hospital because (patient own words): "MY HEART" Discharge Diet: Diabetic Discharge Activity: DO NOT DRIVE, OPERATE MACHINERY, DRINK ALCOHOL FOR 24 HRS. LIGHT ACTIVITY FOR 24 HRS. LIFT NO MORE THAN 10 POUNDS FOR 7 DAYS Follow Up Appointments: Follow up with Dr. Valle in 4-6 weeks. [phone]. Office will call with appointment time. Follow up with Dr. Garrido in 2 weeks. Call office on 10-31-14 to schedule appointment. Condition at time of discharge: Good Condition at time of discharge: Good worsening SOA, cough, fever > 101 General Information: n/a Condition at time of discharge: Fair Pass Plan of Care Discharge Date 10/30/14 8:40pm Disposition 01 DISCHARGED HOME, SELF-CARE Instructions/Education Provided [facility] Heart Cath Prescriptions See Medications Section Functional Status Query Response Date Recorded Physical Hygiene Assist July 17, 2014 9:51am Physical Hygiene Assist July 17, 2014 9:51am Allergies, Adverse Reactions, Alerts Allergen Type Severity Reaction Status Last Updated Sulfa (Sulfonamide Antibiotics) Allergy Unknown THROAT SWELLED Active TAPE Allergy Mild Active 08/03/13 Immunizations Name Given Type Hx Influenza Vaccination Y MAY 2014 Historical Hx Pneumococcal Vaccination Y 06/2010 Historical Hx Influenza Vaccination Y MAY 2014 Historical Vital Signs Acute Vital Signs Vital Response Date/Time Temperature (Fahrenheit) 98.6 deg F (96.8 - 99.1) Temperature (Calculated Celsius) 37.41987 degrees C (36.0 - 37.3) Temperature Source Temporal Pulse Rate (adult) 108 bpm (60 - 100) Respiratory Rate 20 breaths/min (10 - 20) O2 Sat by Pulse Oximetry 93 % (90 - 100) Oxygen Delivery Method Room Air Blood Pressure 141/77 mm Hg Blood Pressure Source Automatic Cuff Height 5 ft 11 in Weight 195 lb Body Mass Index 27.0 kg/m^2 Results Test Source Date Result Interp. Ref. Range Comments Acanthocytes August 12, 2013 1:00pm 1+ - COMMENT DAILY Activated Partial Thromboplast Time July 14, 2014 5:05pm 30.7 SEC N 24-36 Alanine Aminotransferase (ALT/SGPT) October 30, 2014 6:20am 35 U/L N 21- 72 Albumin October 30, 2014 6:20am 2.9 G/DL L 3.5-5.0 Albumin/Globulin Ratio October 30, 2014 6:20am 1.1 RATIO N 1.1-2.2 Alkaline Phosphatase October 30, 2014 6:20am 74 U/L N 38-126 Anion Gap October 30, 2014 6:20am 9 MEQ/L N 5-15 Anisocytosis July 15, 2014 4:04am 1+ - Anti-Streptolysin O Antibody Screen July 21, 2013 8:55am Negative - COMMENT TITER Arterial Blood Base Excess July 21, 2013 7:00pm -8.9 MMOL/L L -2.0- 2.0 COMMENT difficulty breathing Arterial Blood HCO3 July 21, 2013 7:00pm 16 MEQ/L L 22-26 COMMENT difficulty breathing Arterial Blood Oxygen Content July 21, 2013 7:00pm 15 - COMMENT difficulty breathing Arterial Blood Oxygen Saturation July 21, 2013 7:00pm 96.0 % N 95.0- 98.0 COMMENT difficulty breathing Arterial Blood Partial Pressure CO2 July 21, 2013 7:00pm 30 MMHG L 34-45 COMMENT difficulty breathing Arterial Blood Total CO2 July 21, 2013 7:00pm 16.7 MEQ/L L 23-27 COMMENT difficulty breathing Arterial Blood pH July 21, 2013 7:00pm 7.330 L 7.350-7.450 COMMENT difficulty breathing Arterial Blood pO2 at Patient Temp July 21, 2013 7:00pm 89 MMHG N 80 -100 COMMENT difficulty breathing Aspartate Amino Transf (AST/SGOT) October 30, 2014 6:20am 20 U/L N 17-59 B-Type Natriuretic Peptide November 06, 2010 4:25am 62 PG/ML N 15-100 COMMENT add to blood in lab from this morning BUN/Creatinine Ratio October 30, 2014 6:20am 16 RATIO N 6-26 Band Neutrophils # July 15, 2014 4:04am 1.5 T/MM3 - Band Neutrophils % July 15, 2014 4:04am 19.0 % DH 0-6 Basophils # (Auto) October 30, 2014 6:20am 0.0 T/MM3 N 0-0.2 Basophils # (Manual) August 13, 2013 5:50am 0.0 T/MM3 N 0-0.2 COMMENT DAILY Basophils % (Manual) August 13, 2013 5:50am 0.0 % N 0-2 COMMENT DAILY Basophils (%) (Auto) October 30, 2014 6:20am 0.5 % N 0-2 Blood Gas Tidal Volume May 30, 2010 4:25pm Not Performed 0-1200 Blood Gas Vent Rate May 30, 2010 4:25pm Not Performed 0-30 Blood Urea Nitrogen October 30, 2014 6:20am 19.0 MG/DL N 9-20 C-Reactive Protein December 20, 2013 6:00pm < 5.0 MG/L 0-9 C. difficile Toxin B Gene (PCR) July 14, 2014 11:45pm Negative - If Toxin A is clinically indicated, treat accordingly. Calcium Level October 30, 2014 6:20am 8.4 MG/DL N 8.4-10.2 Calculated Osmolality October 30, 2014 6:20am 268 MOSM/KG N 261-280 Carbon Dioxide Level October 30, 2014 6:20am 29 MEQ/L N 22-30 Carcinoembryonic Antigen March 15, 2013 1:00pm 1.31 UG/L N 0-3.0 COMMENT [id number], RN will call Chemistry Specimen Hemolysis October 30, 2014 6:20am 35 H 0-25 0-25: No Hemolysis.26-70: Slight Hemolysis - can falsely elevate K and Urine Protein. 71-285: Moderate Hemolysis - can falsely elevate K, Troponin I, CA 19-9, PTH, CSF GLucose, and Urine Protein, and can falsely decrease Phenytoin. 286-999: Gross Hemolysis - can falsely elevate K, Troponin I, CA 19-9, PTH, CSF Glucose, and Urine Protine, and can falsely decrease Phenytoin. Recommend specimen recollection. Chloride Level October 30, 2014 6:20am 100 MEQ/L N 98-107 Cholesterol Level January 05, 2012 4:30am 160 MG/DL N 132-199 Cholesterol/HDL Ratio January 05, 2012 4:30am 3.7 RATIO N 0-5.0 Clostridium difficile [id number] July 21, 2013 10:32am Negative - Has specimen been collected/obtained? Y Conjugated Bilirubin December 04, 2012 3:33pm 0.00 MG/DL N 0.00-0.30 Creatine Kinase MB July 27, 2013 8:08am 1.1 NG/ML N 0-3.4 COMMENT cpCOMMENT CP Creatine Kinase and CKMB Interpret October 30, 2014 6:20am 1.5 ng/mL - CKMB Mass performed at [facility] Reference Lab, [facility] [address] [place], [place] [address] Director Kishore Emerson DO Creatinine October 30, 2014 6:20am 1.2 MG/DL N 0.8-1.5 D-Dimer October 29, 2014 6:51pm 195 NG/ML N 0-230 <230 NG/ML D-DU= PRESUMPTIVE NEGATIVE FOR PE OR DVT>230 NG/ML D-DU=ADDITIONAL EVAL FOR PE OR DVT RECOMMENDED Differential Total Cells Counted November 10, 2010 5:40am 100 % - EKG June 21, 2009 11:20am Complete - Eosinophils # (Auto) October 30, 2014 6:20am 0.0 T/MM3 N 0-0.5 Eosinophils # (Manual) July 14, 2014 5:05pm 0.1 T/MM3 N 0-0.5 Eosinophils % (Manual) July 14, 2014 5:05pm 1.0 % N 0-4 Eosinophils (%) (Auto) October 30, 2014 6:20am 0.1 % N 0-4 Erythrocyte Sedimentation Rate December 20, 2013 6:00pm 9 MM/HR N 0-15 Escherichia coli 0157 Antigen July 22, 2013 1:25pm Negative - Has specimen been collected/obtained? Y Fungal Antibodies June 18, 2012 4:44am Send out - COMMENT with AM labs Globulin October 30, 2014 6:20am 2.6 G/DL N 2.4-3.6 Glomerular Filtration Rate Calc October 30, 2014 6:20am 59 - Glucometer October 30, 2014 6:22pm 94 mg/dL N 75-110 Glucose Level October 30, 2014 6:20am 103 MG/DL N 75-110 HDL Cholesterol Direct January 05, 2012 4:30am 43 MG/DL N 40-60 Hematocrit October 30, 2014 6:20am 35.9 % L 41-53 Hemoglobin October 30, 2014 6:20am 11.8 GM/DL L 13.5-17.5 Hemoglobin A1c November 06, 2010 4:25am 7.1 % H 6-7 <6.0 NON-DIABETIC RANGE6.0-7.0 ADA THERAPEUTIC RANGE >7.0 ACTION SUGGESTED Hypochromasia August 10, 2013 4:18am 1+ - Icterus Index October 30, 2014 6:20am < 2 0-7 Immature Granulocyte # (Auto) October 30, 2014 6:20am 0.15 T/MM3 H 0.00- 0.03 Immature Granulocyte % (Auto) October 30, 2014 6:20am 2.0 % H 0.0-0.5 Influenza Type A Antigen July 15, 2014 10:48am Negative - Negative for Flu A protein antigen. Assay sensitivity is90%. Influenza Type B Antigen July 15, 2014 10:48am Negative - Negative for Flu B protein antigen. Assay sensitivity is90%. LDL Cholesterol, Calculated January 05, 2012 4:30am 117 N 66-159 Lab Scanned Report December 20, 2013 7:34pm LAB TEST FORM REQUEST [id number] - Large Platelets August 10, 2013 4:18am Few - Lipase July 15, 2014 4:04am 19 U/L L 23-300 Lymphocytes # (Auto) October 30, 2014 6:20am 1.2 T/MM3 N 1-4.8 Lymphocytes # (Manual) July 15, 2014 4:04am 0.5 T/MM3 L 1-4.8 Lymphocytes % (Manual) July 15, 2014 4:04am 6.0 % L 23-45 Lymphocytes (%) (Auto) October 30, 2014 6:20am 16.0 % L 23-45 Magnesium Level October 30, 2014 6:20am 2.0 MG/DL N 1.6-2.3 Mean Corpuscular Hemoglobin October 30, 2014 6:20am 27.4 UUG N 26-34 Mean Corpuscular Hemoglobin Concent October 30, 2014 6:20am 32.9 GM/DL N 31-37 Mean Corpuscular Volume October 30, 2014 6:20am 83.5 UM3 N 80-100 Mean Platelet Volume October 30, 2014 6:20am 10.1 UM3 N 9.4-12.4 Metamyelocytes # July 27, 2013 5:05am 0.3 T/MM3 - Metamyelocytes % July 27, 2013 5:05am 2.0 % H 0-0 Monocytes # (Auto) October 30, 2014 6:20am 0.9 T/MM3 H 0-0.8 Monocytes # (Manual) July 15, 2014 4:04am 0.2 T/MM3 N 0-0.8 Monocytes % (Manual) July 15, 2014 4:04am 2.0 % N 0-9.0 Monocytes (%) (Auto) October 30, 2014 6:20am 11.8 % H 0-9.0 Myelocytes # July 27, 2013 5:05am 0.2 T/MM3 - Myelocytes % July 27, 2013 5:05am 1.0 % H 0-0 [id number] Natriuretic Peptide July 14, 2014 5:05pm 1530 PG/ML H 0-175 Rule in cut points: <50 years old=450; 50-75 years old=900; >75 years old=1800; When utilizing ProBNP rule-in cut points, adjustment for impaired renal function is typically not required. Neutrophils # (Auto) October 30, 2014 6:20am 5.2 T/MM3 N 1.8-7.7 Neutrophils # (Manual) July 15, 2014 4:04am 5.8 T/MM3 N 1.8-7.7 Neutrophils % (Manual) July 15, 2014 4:04am 72.0 % H 33-66 Neutrophils (%) (Auto) October 30, 2014 6:20am 69.6 % H 33-66 Nucleated Red Blood Cells August 11, 2013 5:11am 1 - Ovalocytes July 15, 2014 4:04am 1+ - Oxygen Delivery Method (LAB) July 23, 2013 2:55am Nasal cannula, liters - Phosphorus Level August 04, 2013 5:38am 3.1 MG/DL N 2.5-4.5 Platelet Count October 30, 2014 6:20am 217 T/MM3 N 130-400 Platelet Evaluation (Diff) August 10, 2013 4:18am Few - Poikilocytosis August 07, 2013 5:14am 2+ - Potassium Level October 30, 2014 6:20am 3.8 MEQ/L N 3.6-5 Prealbumin July 15, 2014 10:48am 15.5 MG/DL L 17.6-36.0 COMMENT feliciano Procalcitonin July 15, 2014 10:48am 0.53 NG/ML - PCT </=0.5 ng/ mL - sepsis not likely;PCT >0.5 and </=2 ng/mL - sepsis possible; PCT >2 ng/mL - sepsis likely; PCT >/=10 ng/mL - systemic inflammatory response - sepsis or septic shock highly indicated. Prolactin September 01, 2013 1:23pm 11.7 NG/ML - Normal Female (Non- ): 3.0-18.6 ng/ml;Males: 3.7-17.9 ng/ml Prothromb Time International Ratio July 14, 2014 5:05pm 1.05 N 0.81- 1.09 THERAPUTIC RANGE=2.00-3.00 FOR ANTI-THROMBOSIS THERAPUTIC RANGE=2.50- 3.50 FOR IMPLANTED VALVE RDW Standard Deviation October 30, 2014 6:20am 53.4 FL H 36.9-50.2 Reactive Lymphocytes # July 15, 2014 4:04am 0.1 T/MM3 H 0-0 Reactive Lymphocytes % July 15, 2014 4:04am 1.0 % H 0-0 Red Blood Count October 30, 2014 6:20am 4.30 M/MM3 L 4.50-5.90 Sodium Level October 30, 2014 6:20am 138 MEQ/L N 134-144 Stool Occult Blood July 14, 2014 11:45pm Negative - Stool for White Cells July 14, 2014 11:45pm Positive - Has specimen been collected/obtained? Y TB Test (QFT) CFP-10 June 18, 2012 4:44am Ref lab rpt scanned - - -- 06/20/12 1311 ---QUANTTB previously reported as: SEND OUT Thyroid Stimulating Hormone (TSH) October 29, 2014 6:51pm 16.50 MIU/L DH 0.47-4.68 Total Bilirubin October 30, 2014 6:20am 0.60 MG/DL N 0.20-1.30 Total Creatine Kinase October 30, 2014 6:20am 37 U/L L 55-170 Total Protein October 30, 2014 6:20am 5.5 G/DL L 6.3-8.2 Triglycerides Level January 05, 2012 4:30am 162 MG/DL H 40-160 Troponin I October 30, 2014 6:20am 0.019 ng/ml N 0-0.12 Turbidity October 30, 2014 6:20am < 20 0-20 Unconjugated Bilirubin December 04, 2012 3:33pm 0.10 MG/DL N 0.00-1.10 Urinalysis Comment July 14, 2014 5:56pm Microscopic not ind. - Has specimen been collected/obtained? Y Urine Bilirubin July 14, 2014 5:56pm Negative - Has specimen been collected/obtained? Y Urine Blood July 14, 2014 5:56pm Negative - Has specimen been collected/obtained? Y Urine Collection Type July 14, 2014 5:56pm Cleancatch-midstream - Has specimen been collected/obtained? Y Urine Color July 14, 2014 5:56pm Yellow - Has specimen been collected/obtained? Y Urine Glucose (UA) July 14, 2014 5:56pm Negative - Has specimen been collected/obtained? Y Urine Ketones July 14, 2014 5:56pm Trace H - Has specimen been collected/obtained? Y Urine Leukocyte Esterase July 14, 2014 5:56pm Negative - Has specimen been collected/obtained? Y Urine Microscopic Not Indicated January 04, 2012 3:45pm Not indicated - Has specimen been collected/obtained? Y Urine Nitrite July 14, 2014 5:56pm Negative - Has specimen been collected/obtained? Y Urine Protein July 14, 2014 5:56pm Negative - Has specimen been collected/obtained? Y Urine RBC December 20, 2007 9:05pm Not Performed - Urine Specific Baker July 14, 2014 5:56pm 1.025 - Has specimen been collected/obtained? Y Urine Turbidity July 14, 2014 5:56pm Clear - Has specimen been collected/obtained? Y Urine Urobilinogen July 14, 2014 5:56pm 0.2 EU/DL - Has specimen been collected/obtained? Y Urine WBC December 20, 2007 9:05pm Not Performed - Urine pH July 14, 2014 5:56pm 5.5 - Has specimen been collected/ obtained? Y VLDL Cholesterol January 05, 2012 4:30am 32.4 MG/DL H 0-28 Vancomycin Level Trough July 23, 2013 11:50pm 7.13 UG/ML L 15-20 COMMENT PER VANCO PROTOCOL, GIVE THE VANCO AFTER TROUGH DRAWN. WILL ADJUST LATER. Venous Blood Base Excess July 23, 2013 2:55am -5.3 MMOL/L L -2.0- 2.0 Venous Blood HCO3 July 23, 2013 2:55am 19 MEQ/L L 22-26 Venous Blood Lactate July 15, 2014 10:48am 1.0 MMOL/L N 0.6-2.2 COMMENT feliciano Venous Blood Oxygen Content July 23, 2013 2:55am 4 - Venous Blood Oxygen Saturation July 23, 2013 2:55am 96.0 % - Venous Blood Partial Pressure CO2 July 23, 2013 2:55am 33 MMHG L 40- 52 Venous Blood Partial Pressure O2 July 23, 2013 2:55am 81 MMHG H 40- 52 Venous Blood Total Carbon Dioxide July 23, 2013 2:55am 20.1 MEQ/L - Venous Blood pH July 23, 2013 2:55am 7.370 N 7.31-7.41 Vitamin B12 Level July 15, 2014 10:48am 442 PG/ML N 239-931 COMMENT feliciano White Blood Count October 30, 2014 6:20am 7.5 T/MM3 N 4.5-11.0 Blood Culture Peripheral Blood July 15, 2014 10:48am NO GROWTH AFTER 5 DAYS Shiga Toxin I & II Stool July 14, 2014 11:45pm Gram Stain Sputum-Expectorated Sputum November 05, 2010 12:45pm Gram Stain Chest February 14, 2013 1:50pm Name: BENITO LUKE Unit #: [id number] : [id number] Sex: M Loc / Svc: SRG DOS: Signed Report #: [id number] DIAGNOSTIC IMAGING REPORT TYPE OF EXAM: CHEST 1 VIEW Dictated By: IDRIS ROSS MD Indication: ITS.REASON: COPD CHEST 1 VIEW: Comparison: July 16, 2014 Findings: Left lower lobe consolidation has resolved in the interval. No new airspace disease. There is no pleural effusion or pneumothorax. The heart size, pulmonary vascularity and mediastinal contours are unchanged. Post sternotomy changes. Overlying monitoring leads. IMPRESSION: No acute cardiopulmonary disease. . Procedures No known history of procedures. Encounters Encounter Location Date/Time Discharged Inpatient [facility] 10/29/14 5:40pm Recent Diagnosis Angina pectoris, unstable
--- OUTSIDE RECORDS SUMMARY | 2016-11-13 17:53 | XMS REPORT | Continuity of Care Document ---
Author Author [facility] Organization [facility] Address Unknown Phone Unavailable Support Name Relationship Address Phone PAN HANLEY MD Caregiver [address] [facility] [address] [place] [address] Unavailable JORDAN CAMPOS MD Caregiver [address] [place] [address] Unavailable KIET GARRIDO DO Caregiver [address] [facility] [address] [place] [address] Unavailable LYNNETTE LUKE Next Of Kin [address] [place], [place] [id number] Insurance Providers Guarantor Benito Luke Address [address] [place] [address] Email [email or web address] Payer Medicare Policy Number [id number] Subscriber's Name Benito Luke Relationship 18 Self Payer [facility] Policy Number [id number] Subscriber's Name Benito Luke Relationship 18 Self Group Number [id number] Advance Directives Directive Response Recorded Date/Time Advanced Directives Type None 05/28/16 2:09pm Chief Complaint and Reason for Visit Chief Complaint Dyspnea/Respdistress Reason for Visit COPD (chronic obstructive pulmonary disease) Problems Active Problems Medical Problem Onset Date Status Angina pectoris, unstable Unknown Acute Arterial leg ulcer Unknown Resolved Atrial fibrillation with RVR ~07/25/2015 Resolved Bandemia Unknown Acute Bipolar 1 disorder, depressed Unknown Chronic CAD (coronary artery disease) Unknown Chronic CHF (congestive heart failure) Unknown Chronic COPD (chronic obstructive pulmonary disease) Unknown Chronic Cellulitis Unknown Acute Cellulitis Unknown Acute Cellulitis and abscess of lower extremity Unknown Resolved Cellulitis of left leg Unknown Acute Chronic back pain Unknown Chronic Chronic respiratory insufficiency Unknown Chronic Compression fracture of T12 vertebra Unknown Chronic Constipation Unknown Chronic Dehydration Unknown Acute Depression Unknown Chronic Diabetes Unknown Chronic 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 Diarrhea Unknown Resolved Edema Unknown Chronic Encephalopathy acute Unknown Resolved Episodes of speech arrest Unknown Acute Facial droop Unknown Acute GERD (gastroesophageal reflux disease) Unknown Chronic Gastroenteritis Unknown Resolved H/O sepsis Unknown HTN (hypertension) Unknown Chronic History of TIA (transient ischemic attack) Unknown Chronic Hypercholesteremia Unknown Chronic Hypokalemia Unknown Resolved Hypomagnesemia Unknown Acute Hypoxemia Unknown Acute Hypoxia Unknown Chronic Hypoxia Unknown Resolved Left displaced femoral neck fracture Unknown Acute Neuropathy involving both lower extremities Unknown Chronic Normocytic anemia Unknown Acute Osteoarthritis Unknown Chronic Overweight Unknown Chronic PAD (peripheral artery disease) Unknown Chronic PVD (peripheral vascular disease) Unknown Chronic Physical debility Unknown Chronic Pneumonia Unknown Acute Pulmonary hypertension Unknown Chronic Renal failure Unknown Resolved SIRS (systemic inflammatory response syndrome) Unknown Acute Sepsis affecting skin Unknown Resolved Septic shock Unknown Resolved Severe sepsis ~07/2015 Resolved Shingles Unknown Chronic Sinus tachycardia Unknown Acute Sinusitis Unknown Chronic Sleep apnea Unknown Chronic Thrombocytosis Unknown Resolved Tremor Unknown Chronic Trigeminal neuralgia Unknown Chronic Ulcer Unknown Chronic Yersinia enterocolitica food poisoning Unknown Surgical Problem Onset Date Status History of coronary artery bypass graft x 3 Unknown Chronic S/P CABG (coronary artery bypass graft) Unknown Chronic S/P hip hemiarthroplasty Unknown Acute Past Problems Medical Problem Onset Date Anemia Unknown Diarrhea Unknown Displaced fracture of left femoral neck Unknown Fall Unknown Generalized weakness Unknown Head injury, closed Unknown Hypokalemia due to loss of potassium Unknown Hypotension Unknown Leukocytosis Unknown Medications Current Home Medications Medication Dose Units Route Directions Days Qty Instructions Start Date Albuterol Sulfate (Ventolin Hfa 90 Mcg/Actuation) 18 Gm Hfa.aer.ad 1 Puff Inhalation As Needed 07/23/15 Arformoterol Tartrate (Brovana) 15 Mcg/2 Ml Vial.neb. 1 Vial Inhalation Twice A Day 01/04/12 Bumetanide 2 Mg Tablet 4 Mg Oral Daily 03/05/16 Carbamazepine 300 Mg Cpmp.12hr 300 Mg Oral Twice A Day 05/28/16 Chlorhexidine Gluconate (Hibiclens) 118 Ml Liquid 1 Applic Topically Daily APPLY TO SKIN SORES ON UPPER THIGHS AND SCROTUM 05/28/16 Clopidogrel Bisulfate (Clopidogrel) 75 Mg Tablet 75 Mg Oral Daily 03/22/16 Dabigatran Etexilate Mesylate (Pradaxa) 150 Mg Capsule 150 Mg Oral Twice A Day 10/02/15 Docusate Sodium (Colace) 100 Mg Capsule 100 Mg Oral Daily Doxycycline Hyclate 100 Mg Capsule 100 Mg Oral Every 12 Hours Escitalopram Oxalate (Lexapro) 20 Mg Tablet 20 Mg Oral Daily Ferrous Sulfate (Iron Supplement) 325 Mg Tablet 325 Mg Oral Twice A Day 03/05/16 Gabapentin 300 Mg Capsule 300 Mg Oral Three Times A Day 07/23/15 Guaifenesin (Guaifenesin Er) 600 Mg Tab.er.12h 600 Mg Oral Twice A Day 05/28/16 Hydrocodone/Apap 7.5/325 Mg ([place] 7.5-325 Tablet) 7.5-325 Tablet 1 Tab Oral Every 8 Hours as needed for Pain 03/05/16 Ipratropium/Albuterol Sulfate (Iprat-Albut 0.5-3(2.5) Mg/3 Ml) 3 Ml Ampul.neb 1 Vial Aerosol Tx. Every 6 Hours 05/28/16 Isosorbide Mononitrate (Isosorbide Mononitrate Er) 120 Mg Tab.er.24h 120 Mg Oral Daily 03/22/16 Levothyroxine Sodium 50 Mcg Tablet 50 Mcg Oral Before Breakfast 01/05/15 Metformin Hcl (Glucophage) 1,000 Mg Tablet 1,000 Mg Oral Twice A Day 01/04/12 Metoprolol Tartrate 50 Mg Tablet 50 Mg Oral Daily 03/05/16 Morphine Sulfate 15 Mg Tablet 15 Mg Oral Twice A Day 05/28/16 Nitroglycerin 0.4 Mg Tab.subl 0.4 Mg Sublingual Every 5 Minutes X 3 as needed for Chest Pain 08/11/13 Pantoprazole Sodium (Protonix) 40 Mg Tablet.dr 40 Mg Oral Before Breakfast 05/28/16 Potassium Chloride (K-Dur) 20 Meq Tab.prt.sr 20 Meq Oral Daily Prednisone 20 Mg Tablet 20 Mg Oral Daily 01/04/12 Prednisone 20 Mg Tablet 20 Mg Oral Per Comments 15 Tablet Take 3 tablets by mouth for 2 days, then 2 tablets by mouth daily for 3 days, then 1 tablet by mouth daily for 3 days then stop. 05/28/16 Primidone 50 Mg Tablet 50 Mg Oral Twice A Day 08/11/13 Simvastatin 10 Mg Tablet 10 Mg Oral Bedtime 08/11/13 Sodium Chloride ([place]) 450 [place]/45 Ml [place] 2 [place] Each Nostril Four Times Daily as needed for Dry Nasal Passages 05/28/16 Sucralfate (Carafate) 1 G Tablet 1 G Oral Bedtime 01/04/12 Trazodone Hcl 100 Mg Tablet 100 Mg Oral Bedtime 01/04/12 Vitamin B Comp W-C (Total B With C) 1 Tab Tablet 1 Tab Oral Twice A Day 05/28/16 Past Home Medications Medication Directions Ordered Status Albuterol (Ventolin) 17 Gm Aerosol, 17 Gm Inhalation Daily 05/30/10 Discontinued Amiodarone Hcl 200 Mg Tablet, 200 Mg Oral Twice A Day 12/04/12 Discontinued Arformoterol Tartrate (Brovana) 15 Mcg/2 Ml Vial.neb., 15 Mcg Nebullizer Twice A Day 05/30/10 Discontinued Arformoterol Tartrate (Brovana) 15 Mcg/2 Ml Vial.neb., 15 Mcg Inhalation Every 12 Hours 11/27/08 Discontinued Aspirin 81 Mg Tab.chew, 1 Tab Oral Daily 07/23/15 Discontinued Aspirin 81 Mg Tablet, 81 Mg Oral Daily 05/30/10 Discontinued Bacitracin/Polymyxin B Sulfate (Bacitracin/Polymyxin Oint) 1 Udpkt Packet, 1 Udpkt Topical Daily 08/11/13 Discontinued Budesonide (Pulmicort) 0.5 Mg/2 Ml Amp, 0.5 Mg Inhalation Twice A Day Discontinued Budesonide (Pulmicort) 0.5 Mg/2 Ml Amp, 0.5 Mg Nebullizer Twice A Day Discontinued Calcium Carbonate/Vitamin D3 (Calcium + D 600 Mg Tablet) 1 Tab Tablet, 1 Tab Oral Daily 05/30/10 Discontinued Carbamazepine 300 Mg Cpmp.12hr, 300 Mg Oral Twice A Day 03/22/16 Discontinued Citalopram Hydrobromide (Celexa) 40 Mg Tablet, 40 Mg Oral Bedtime 01/04/12 Discontinued Citalopram Hydrobromide (Celexa) 40 Mg Tablet, 40 Mg Oral Daily 05/30/10 Discontinued Clindamycin Hcl 300 Mg Capsule, 300 Mg Oral Three Times A Day 06/19/12 Discontinued Dabigatran Etexilate Mesylate (Pradaxa) 150 Mg Capsule, 1 Cap Oral Twice A Day 06/18/15 Discontinued Digoxin (Lanoxin) 250 Mcg Tablet, 250 Mcg Oral Daily 05/30/10 Discontinued Diltiazem Hcl (Diltia Xt) 180 Mg Capsule.cr, 180 Mg Oral Daily 06/26/09 Discontinued Doxycycline Monohydrate 50 Mg Capsule, 100 Mg Oral Every 12 Hours 07/30/15 Discontinued Furosemide 20 Mg Tablet, 1 Tab Oral Twice A Day 03/27/14 Discontinued Furosemide 40 Mg Tablet, 40 Mg Oral In Am 06/26/09 Discontinued Furosemide (Lasix) 20 Mg Tablet, 20 Mg Oral Twice A Day 05/30/10 Discontinued Furosemide 20 Mg Tablet, 20 Mg Oral Daily At 1400 06/26/09 Discontinued Isosorbide Mononitrate (Isosorbide Mononitrate Er) 60 Mg Tab.er.24h, 60 Mg Oral Daily 11/14/12 Discontinued Isosorbide Mononitrate (Imdur) 60 Mg Tablet, 60 Mg Oral Daily 05/30/10 Discontinued Lexapro , 05/26/12 Discontinued Lisinopril 2.5 Mg Tablet, 2.5 Mg Oral Daily 01/04/12 Discontinued Lisinopril 2.5 Mg Tablet, 2.5 Mg Oral Daily 05/30/10 Discontinued Magnesium Oxide (Mag-Oxide) 400 Mg Tablet, 400 Mg Oral Twice A Day 05/30/10 Discontinued Metformin Hcl 500 Mg Tablet, 500 Mg Oral Twice A Day 10/02/11 Discontinued Metoprolol Succinate 50 Mg Tab.er.24h, 50 Mg Oral Daily 04/23/15 Discontinued Metoprolol Succinate 50 Mg Tab.sr.24h, 50 Mg Oral Daily 01/04/12 Discontinued Metoprolol Tartrate 50 Mg Tablet, 50 Mg Oral Twice A Day 05/30/10 Discontinued Morphine Sulfate 15 Mg Tablet, 15 Mg Oral Twice A Day 03/05/16 Discontinued Nitroglycerin (Nitrostat) 0.4 Mg Tab.subl, 0.4 Mg Sublingual As Needed Discontinued Nitroglycerin (Nitrostat) 0.3 Mg Tab.subl, 0.3 Mg Sublingual As Needed Discontinued Omeprazole (Prilosec) 20 Mg Capsule.dr, 20 Mg Oral Daily 01/04/12 Discontinued Omeprazole Magnesium (Prilosec Otc) 20 Mg Tablet.dr, 40 Mg Oral Daily Discontinued Ondansetron (Zofran Odt) 4 Mg Tab.rapdis, 4 Mg Oral Every Six Hours as needed for Nausea &/Or Vomiting 07/17/14 Discontinued Ondansetron Hcl/Pf (Zofran) 4 Mg/2 Ml Inj, 4 Mg Injection Every 4-6 Hours Prn 08/11/13 Discontinued Potassium 99 Mg Tablet, 10 Meq Oral Daily 05/30/10 Discontinued Prednisone 10 Mg Tablet, 20 Mg Oral Daily 05/30/10 Discontinued Rabeprazole Sodium (Aciphex) 20 Mg Tablet.dr, 20 Mg Oral Daily 11/27/08 Discontinued Sertraline Hcl (Zoloft) 100 Mg Tablet, 100 Mg Oral Daily 11/27/08 Discontinued Simvastatin 40 Mg Tablet, 40 Mg Oral Daily 10/02/11 Discontinued Sucralfate (Carafate) 1 G/10 Ml Oral.susp, 1 G Oral 08/11/13 Discontinued Sucralfate (Carafate) 1 G Tablet, 1 G Oral Bedtime 05/30/10 Discontinued Terazosin Hcl 1 Mg Capsule, 1 Mg Oral Bedtime 01/04/12 Discontinued Terazosin Hcl 1 Mg Tablet, 1 Mg Oral Bedtime 05/30/10 Discontinued Tramadol Hcl 50 Mg Tablet, 50 Mg Oral Q6h/0300,0900,1500,2100 as needed for Pain 01/05/15 Discontinued Tramadol Hcl 50 Mg Tablet, 50 Mg Oral As Needed 11/14/12 Discontinued Trazodone Hcl 100 Mg Tablet, 100 Mg Oral Bedtime 05/30/10 Discontinued Vitamin D , 05/26/12 Discontinued Social History Social History Problem Response Recorded Date/Time Onset Date Status Chewing Tobacco Status No 09/01/2013 1:29pm Not Applicable Not Applicable Hx Substance Use No 05/28/2016 2:35pm Not Applicable Not Applicable Hx Alcohol Use No 05/28/2016 2:35pm Not Applicable Not Applicable Has the pt used tobacco in the last 12 months No 04/14/2016 8:41pm Not Applicable Not Applicable Tobacco Usage none other 03/06/2016 2:39pm Not Applicable Not Applicable Query Response Start Date Stop Date Smoking Status Former smoker Hospital Discharge Instructions No hospital discharge instructions. Plan of Care Discharge Date 05/28/16 5:29pm Disposition 01 DISCHARGED HOME, SELF-CARE Condition at Discharge Stable Instructions/Education Provided DI for Chronic Obstructive Pulmonary Disease Prescriptions See Medication Section Referrals KIET GARRIDO DO Address: [address] [facility] [address] [phone] Additional Instructions/Education I want you to continue to take the breathing treatments as prescribed. Take the steroids as prescribed as well. Your labs today are all normal but I do want you to monitor for any increased SOA or chest pain. If this is not improving at all or if symptoms get worse then please return to ER. Care Plan and Goals Physician Care Plan Problem:Dyspnea Goal: Follow up with primary care provider Instructions: Take medications and follow care plan as discussed/written Functional Status No functional status results. Allergies, Adverse Reactions, Alerts Allergen Type Severity Reaction Status Last Updated Sulfa (Sulfonamide Antibiotics) Allergy Unknown THROAT SWELLED Active TAPE Allergy Mild RASH Active 01/07/15 Immunizations Query Response on File Recorded Date/Time Hx Influenza Vaccination Y 05/201504/14/16 8:41pm Hx Pneumococcal Vaccination Y 201404/14/16 8:41pm Hx Influenza Vaccination Y 05/201504/14/16 8:41pm Influenza Vaccine Hx MAY 2015 05/28/16 2:35pm Tetanus Diptheria Vaccine History UTD PER PATIENT 05/28/16 2:35pm Vital Signs Acute Vital Signs Vital Response Date/Time Temperature (Fahrenheit) 97.8 deg F (96.8 - 99.1) 05/28/2016 2:09pm Temperature (Calculated Celsius) 36.77455 degrees C (36.0 - 37.3) 05/28/2016 2:09pm Temperature Source Axillary 03/28/2016 10:07am Pulse Rate (adult) 72 bpm (60 - 100) 05/28/2016 5:25pm Respiratory Rate 16 breaths/min (10 - 20) 05/28/2016 5:25pm O2 Sat by Pulse Oximetry 97 % (90 - 100) 05/28/2016 5:25pm Oxygen Delivery Method Nasal Cannula 04/15/2016 4:36pm Oxygen Delivery Method Nasal Cannula 04/15/2016 7:38am Oxygen Flow Rate 1.50 L/min 05/28/2016 5:25pm Blood Pressure 143/73 mm Hg 05/28/2016 5:25pm Blood Pressure Source Automatic Cuff 04/15/2016 2:55pm Height (Feet) 5 feet 05/28/2016 2:09pm Height (Inches) 11.00 inches 05/28/2016 2:09pm Weight (Kilograms) 79.900 kg 05/28/2016 2:09pm Body Mass Index (BMI) 29.7 04/14/2016 8:40pm Results Laboratory Results Test Name Result Units Flags Reference Collection Date/Time Result Date/ Time Comments Reactive Lymphocytes % 1.0 % H 0-0 03/10/2016 5:05am 03/10/2016 6:59am Reactive Lymphocytes # 0.1 T/MM3 H 0-0 03/10/2016 5:05am 03/10/2016 6: 59am Ferritin 37.0 NG/ML 18-464 03/09/2016 2:33pm 03/11/2016 2:24am Thyroid Stimulating Hormone (TSH) 1.43 MIU/L 0.47-4.68 03/05/2016 11: 26am 03/05/2016 12:14pm Arterial Blood pH 7.340 L 7.350-7.450 03/05/2016 1:pm 03/05/2016 1: 35pm Arterial Blood Partial Pressure CO2 46 MMHG H 34-45 03/05/2016 1:27pm 1:35pm Arterial Blood pO2 at Patient Temp 75 MMHG L 80-100 03/05/2016 1:pm 1:35pm Arterial Blood HCO3 25 MEQ/L 22-03/05/2016 1:27pm 03/05/2016 1:35pm Arterial Blood Total CO2 26.2 MEQ/L -03/05/2016 1:03/05/2016 1:35pm Arterial Blood Base Excess -1.3 MMOL/L -2.0-2.0 03/05/2016 1:27pm 03/05 1:35pm Arterial Blood Oxygen Saturation 94.0 % L 95.0-98.0 03/05/2016 1:27pm 1:35pm Blood Gas Oxygen Liter Flow 2 03/05/2016 1:27pm 03/05/2016 1:35pm Oxygen Delivery Method (LAB) NASAL CANNULA,LITERS 03/05/2016 1:pm 03/05/2016 1:35pm Platelet Function P2Y12 React Units 180 PRU 03/27/2016 6:06pm 2015 6:20pm PRU reference range for non-treated is 194-418. Post Drug Results: Lower PRU levels are associated with antiplatelet effect. PRU results <194 are highly indicative of a P2Y12 inhibitor effect. PRU of >237 corresponds to previously recommended pre-surgical level of <20% inhibition. NOTE: Test not reliable with NSAID use or low platelet counts. Not for use with inherited platelet disorders. Band Neutrophils % 1.0 % 0-6 04/01/2016 4:54am 04/01/2016 6:32am Eosinophils % (Manual) 8.0 % H 0-4 04/06/2016 4:39am 04/06/2016 5:34am Band Neutrophils # 0.1 T/MM3 04/01/2016 4:54am 04/01/2016 6:32am Eosinophils # (Manual) 0.7 T/MM3 H 0-0.5 04/06/2016 4:39am 04/06/2016 5: 34am Absolute Reticulocyte Count 0.0330 T/MM3 0.0300-0.0900 04/06/2016 4: 39am 04/06/2016 5:01am Percent Reticulocyte Count 0.9 % 0.6-1.7 04/06/2016 4:39am 04/06/2016 5 :01am Immature Reticulocyte Fraction 4.9 % 3.3-14.5 04/06/2016 4:39am 2015 5:01am Reticulocyte Hgb Content (CHr) 30.6 PG L 30.8-36.6 04/06/2016 4:39am 5:01am Magnesium Level 1.8 MG/DL 1.6-2.3 04/01/2016 4:54am 04/01/2016 5:16am Iron Level 69 UG/DL 49-181 04/06/2016 4:39am 04/06/2016 5:13am Total Iron Binding Capacity 205 UG/DL L 261-497 04/06/2016 4:39am 2015 5:42am Percent Iron Saturation 34 % 13-59 04/06/2016 4:39am 04/06/2016 5:42am Vancomycin Level Trough 24.13 UG/ML H 15-20 04/06/2016 4:39am 2015 5:21am Stool Campylobacter PCR NEGATIVE NEGATIVE 04/03/2016 3:05pm 2015 4:44pm Stool C. difficile Toxin (PCR) NEGATIVE NEGATIVE 04/03/2016 3:05pm 4:44pm Stool Plesiomonas shigelloides PCR NEGATIVE NEGATIVE 04/03/2016 3: 05pm 04/03/2016 4:44pm Stool Salmonella PCR NEGATIVE NEGATIVE 04/03/2016 3:05pm 04/03/2016 4 :44pm Stool Vibrio (PCR) NEGATIVE NEGATIVE 04/03/2016 3:05pm 04/03/2016 4: 44pm Stool Vibrio cholera (PCR) NEGATIVE NEGATIVE 04/03/2016 3:05pm 2015 4:44pm Stool Yersinia enterocolitica (PCR) DETECTED A NEGATIVE 04/03/2016 3: 05pm 04/03/2016 4:44pm Stool Enteroaggregative E. coli PCR NEGATIVE NEGATIVE 04/03/2016 3: 05pm 04/03/2016 4:44pm Stool Enteropathogenic E. coli (PCR NEGATIVE NEGATIVE 04/03/2016 3: 05pm 04/03/2016 4:44pm Stool Enterotoxigenic Ecoli PCR NEGATIVE NEGATIVE 04/03/2016 3:05pm 04/03/2016 4:44pm Stool E. coli Shiga Toxins NEGATIVE NEGATIVE 04/03/2016 3:05pm 2015 4:44pm Stool E coli O157 PCR NEGATIVE NA/NEG 04/03/2016 3:05pm 04/03/2016 4: 44pm Stool Shigella/EIEC (PCR) NEGATIVE NEGATIVE 04/03/2016 3:05pm 2015 4:44pm Stool Cryptosporidium PCR NEGATIVE NEGATIVE 04/03/2016 3:05pm 2015 4:44pm Stool Cyclospora species Detection NEGATIVE NEGATIVE 04/03/2016 3: 05pm 04/03/2016 4:44pm Stool Entamoeba (PCR) NEGATIVE NEGATIVE 04/03/2016 3:05pm 04/03/2016 4:44pm Stool Giardia Lamblia PCR NEGATIVE NEGATIVE 04/03/2016 3:05pm 2015 4:44pm Stool Adenovirus (PCR) NEGATIVE NEGATIVE 04/03/2016 3:05pm 2015 4:44pm Stool Astrovirus (PCR) NEGATIVE NEGATIVE 04/03/2016 3:05pm 2015 4:44pm Stool Norovirus GI/GII PCR NEGATIVE NEGATIVE 04/03/2016 3:05pm 2015 4:44pm Stool Rotavirus A PCR NEGATIVE NEGATIVE 04/03/2016 3:05pm 04/03/2016 4:44pm Stool Sapovirus (PCR) NEGATIVE NEGATIVE 04/03/2016 3:05pm 04/03/2016 4:44pm Glucometer 131 mg/dL H 75-110 04/09/2016 1:59pm 04/09/2016 2:01pm Neutrophils % (Manual) 75.0 % H 33-66 04/14/2016 4:44pm 04/14/2016 5: 15pm Lymphocytes % (Manual) 6.0 % L 23-45 04/14/2016 4:44pm 04/14/2016 5: 15pm Monocytes % (Manual) 8.0 % 0-9.0 04/14/2016 4:44pm 04/14/2016 5:15pm Basophils % (Manual) 11.0 % H 0-2 04/14/2016 4:44pm 04/14/2016 5:15pm Absolute Neutrophils (Manual) 12.2 T/MM3 H 1.8-7.7 04/14/2016 4:44pm 01/2016 5:15pm Lymphocytes # (Manual) 1.0 T/MM3 1-4.8 04/14/2016 4:44pm 04/14/2016 5: 15pm Monocytes # (Manual) 1.3 T/MM3 H 0-0.8 04/14/2016 4:44pm 04/14/2016 5: 15pm Basophils # (Manual) 1.8 T/MM3 H 0-0.2 04/14/2016 4:44pm 04/14/2016 5: 15pm Red Cell Morphology Comment NORMAL 04/14/2016 4:44pm 04/14/2016 5: 15pm Total Bilirubin 0.30 MG/DL 0.20-1.30 04/15/2016 4:42am 04/15/2016 5: 38am Alkaline Phosphatase 101 U/L 38-126 04/15/2016 4:42am 04/15/2016 5: 38am Total Protein 5.1 G/DL L 6.3-8.2 04/15/2016 4:42am 04/15/2016 5:38am Albumin 2.5 G/DL L 3.5-5.0 04/15/2016 4:42am 04/15/2016 5:38am Globulin 2.6 G/DL 2.4-3.6 04/15/2016 4:42am 04/15/2016 5:38am Albumin/Globulin Ratio 1.0 RATIO L 1.1-2.2 04/15/2016 4:42am 04/15/2016 5:38am Aspartate Amino Transf (AST/SGOT) 11 U/L L 17-59 04/15/2016 4:42am 04/15 5:38am Alanine Aminotransferase (ALT/SGPT) 14 U/L L 21-72 04/15/2016 4:42am 02/2016 5:38am Plasma Lactate 0.8 MMOL/L 0.6-2.2 04/15/2016 4:42am 04/15/2016 5:37am Procalcitonin < 0.05 NG/ML 04/14/2016 5:32pm 04/14/2016 6:16pm PCT < /=0.5 ng/mL - sepsis not likely; PCT >0.5 and </=2 ng/mL - sepsis possible; PCT >2 ng/mL - sepsis likely; PCT >/=10 ng/mL - systemic inflammatory response - sepsis or septic shock highly indicated. Urine Collection Type [place]-MIDSTREAM 04/14/2016 5:52pm 2015 6:40pm Urine Color YELLOW YELLOW 04/14/2016 5:52pm 04/14/2016 6:40pm Urine Turbidity CLEAR CLEAR 04/14/2016 5:52pm 04/14/2016 6:40pm Urine Specific [place] 1.025 1.015-1.025 04/14/2016 5:52pm 2015 6:40pm Urine pH 6.0 5.0-8.0 04/14/2016 5:52pm 04/14/2016 6:40pm Urine Leukocyte Esterase NEGATIVE NEGATIVE 04/14/2016 5:52pm 2015 6:40pm Urine Nitrite NEGATIVE NEGATIVE 04/14/2016 5:52pm 04/14/2016 6:40pm Urine Protein TRACE A NEGATIVE 04/14/2016 5:52pm 04/14/2016 6:40pm Urine Glucose (UA) NEGATIVE NEGATIVE 04/14/2016 5:52pm 04/14/2016 6: 40pm Urine Ketones NEGATIVE NEGATIVE 04/14/2016 5:52pm 04/14/2016 6:40pm Urine Urobilinogen 0.2 EU/DL NORMAL 04/14/2016 5:52pm 04/14/2016 6: 40pm Urine Bilirubin NEGATIVE NEGATIVE 04/14/2016 5:52pm 04/14/2016 6: 40pm Urine Blood NEGATIVE NEGATIVE 04/14/2016 5:52pm 04/14/2016 6:40pm Urinalysis Comment MICROSCOPIC NOT IND. 04/14/2016 5:52pm 2015 6:40pm White Blood Count 9.4 T/MM3 4.5-11.0 05/28/2016 2:38pm 05/28/2016 2: 46pm Red Blood Count 3.97 M/MM3 L 4.50-5.90 05/28/2016 2:38pm 05/28/2016 2: 46pm Hemoglobin 10.7 GM/DL L 13.5-17.5 05/28/2016 2:38pm 05/28/2016 2:46pm Hematocrit 34.4 % L 41-53 05/28/2016 2:38pm 05/28/2016 2:46pm Mean Corpuscular Volume 86.6 UM3 80-100 05/28/2016 2:38pm 05/28/2016 2: 46pm Mean Corpuscular Hemoglobin 27.0 UUG 26-34 05/28/2016 2:38pm 2015 2:46pm Mean Corpuscular Hemoglobin Concent 31.1 GM/DL 31-37 05/28/2016 2:38pm 05/28/2016 2:46pm RDW Standard Deviation 58.8 FL H 36.9-50.2 05/28/2016 2:38pm 05/28/2016 2:46pm Platelet Count 584 T/MM3 H 130-400 05/28/2016 2:38pm 05/28/2016 2:46pm Mean Platelet Volume 9.1 UM3 L 9.4-12.4 05/28/2016 2:38pm 05/28/2016 2: 46pm Neutrophils (%) (Auto) 75.2 % H 33-66 05/28/2016 2:38pm 05/28/2016 2: 46pm Lymphocytes (%) (Auto) 12.5 % L 23-45 05/28/2016 2:38pm 05/28/2016 2: 46pm Monocytes (%) (Auto) 4.5 % 0-9.0 05/28/2016 2:38pm 05/28/2016 2:46pm Eosinophils (%) (Auto) 6.8 % H 0-4 05/28/2016 2:38pm 05/28/2016 2:46pm Basophils (%) (Auto) 0.9 % 0-2 05/28/2016 2:38pm 05/28/2016 2:46pm Immature Granulocyte % (Auto) 0.1 % 0.0-0.5 05/28/2016 2:38pm 2015 2:46pm Absolute Neutrophils (auto) 7.1 T/MM3 1.8-7.7 05/28/2016 2:38pm 2015 2:46pm Absolute Lymphocytes (auto) 1.2 T/MM3 1-4.8 05/28/2016 2:38pm 2015 2:46pm Absolute Monocytes (auto) 0.4 T/MM3 0-0.8 05/28/2016 2:38pm 05/28/2016 2:46pm Absolute Eosinophils (auto) 0.6 T/MM3 H 0-0.5 05/28/2016 2:38pm 2015 2:46pm Absolute Basophils (auto) 0.1 T/MM3 0-0.2 05/28/2016 2:38pm 05/28/2016 2:46pm Absolute Immature Granulocyte (auto 0.01 T/MM3 0.00-0.03 05/28/2016 2: 38pm 05/28/2016 2:46pm D-Dimer 424 NG/ML H 0-230 05/28/2016 2:38pm 05/28/2016 4:02pm <230 NG/ ML D-DU=PRESUMPTIVE NEGATIVE FOR PE OR DVT >230 NG/ML D-DU=ADDITIONAL EVAL FOR PE OR DVT RECOMMENDED Icterus Index < 2 0-7 05/28/2016 2:38pm 05/28/2016 2:58pm Chemistry Specimen Hemolysis < 15 0-25 05/28/2016 2:38pm 05/28/2016 2 :58pm 0-25: Specimen Exhibited No Hemolysis. Turbidity < 20 0-20 05/28/2016 2:38pm 05/28/2016 2:58pm Sodium Level 144 MEQ/L 134-144 05/28/2016 2:38pm 05/28/2016 2:58pm Potassium Level 4.7 MEQ/L 3.6-5 05/28/2016 2:38pm 05/28/2016 2:58pm Chloride Level 98 MEQ/L 98-107 05/28/2016 2:38pm 05/28/2016 2:58pm Carbon Dioxide Level 31 MEQ/L H 22-30 05/28/2016 2:38pm 05/28/2016 2: 58pm Anion Gap 15 MEQ/L 5-15 05/28/2016 2:38pm 05/28/2016 2:58pm Blood Urea Nitrogen 18.0 MG/DL 9-05/28/2016 2:38pm 05/28/2016 2: 58pm Creatinine 0.9 MG/DL 0.8-1.5 05/28/2016 2:38pm 05/28/2016 2:58pm BUN/Creatinine Ratio 20 RATIO 6-26 05/28/2016 2:38pm 05/28/2016 2:58pm Glomerular Filtration Rate Calc 82 05/28/2016 2:38pm 05/28/2016 2: 58pm Glucose Level 117 MG/DL H 75-110 05/28/2016 2:38pm 05/28/2016 2:58pm Calculated Osmolality 280 MOSM/KG 261-280 05/28/2016 2:38pm 05/28/2016 2:58pm Calcium Level 8.9 MG/DL 8.4-10.2 05/28/2016 2:38pm 05/28/2016 2:58pm Troponin I < 0.012 ng/ml 0-0.12 05/28/2016 2:38pm 05/28/2016 3:09pm Troponin values with a difference of 55% increase from orginal troponin value represent a true biological DELTA value. (%increase Calc=Orginal Troponin value, divided by subsequent Troponin value, multiplied by 100) Microbiology Results Procedure Source Organism/Result Collection Date/Time Result Date/Time Result Status WOUND CULTURE DEEP TISS-AER/AN Leg, Left PREVOTELLA BIVIA 03/05/2016 11: 58am 03/08/2016 6:54am Final DIPHTHEROID BACILLUS 03/05/2016 11:58am 03/08/2016 6:54am Final KLEBSIELLA OXYTOCA 03/05/2016 11:58am 03/08/2016 6:54am Final STAPHYLOCOCCUS AUREUS 03/05/2016 11:58am 03/08/2016 6:54am Final WOUND CULTURE DEEP TISS-AER/AN Leg, Left Lower COAG NEGATIVE STAPHYLOCOCCUS 03/05/2016 2:50pm 03/07/2016 8:37am Final Blood Culture Peripheral/Iv Start NO GROWTH AFTER 5 DAYS 04/14/2016 5:42pm 04/19/2016 5:44pm Final Name: BENITO LUKE Unit #: [id number] : 1940 Sex: M Admit Date: Loc / Svc: ED Discharge Date: DIAGNOSTIC IMAGING REPORT Report #: [id number] [facility] ADAM Cohn Indication: ITS.REASON: dyspnea, recent surgery PROCEDURE: CTA PULMONARY EMBOLI: Encounter: Initial Comparison: CT angiogram of the chest dated June 16, 2012 and chest x-ray dated April 14, 2016 Technique: Axial CT pulmonary angiographic phase images were performed through the chest after the administration of intravenous contrast. Coronal and Sagittal MIP reconstructed images were created and reviewed. Contrast: Omnipaque 350 62 mL Findings: Pulmonary arteries: Exam is diagnostic to the segmental pulmonary arterial level. Subsegmental vessels cannot be well evaluated due to contrast admixture and lack of opacification. No large or central pulmonary embolus identified. Other findings: Paraseptal emphysema. Right posterior diaphragmatic defect. No pneumothorax or pleural effusion. No consolidative pneumonia. Scattered calcified pulmonary and hilar granulomas. Central airways are patent. Stable benign left lower lobe pulmonary nodule on image #43. No axillary or mediastinal adenopathy. Prior CABG. Heart size is stable. No pericardial effusion. Small hiatal hernia. Upper abdomen shows no acute findings. Old severe compression fracture of T10. Impression: No large or central pulmonary embolus. No acute intrathoracic disease process seen. . Procedures Procedure Status Date Provider(s) FEM/POPL REVASC W/STENT Completed 03/05/16 PAN HANLEY MD INS CATH ABD/L-EXT ART 3RD Completed 03/05/16 PAN HANLEY MD BLOOD TRANSFUSION SERVICE Completed 03/05/16 KIET GARRIDO DO DILATE L FEM ART W DRUG-ELUT INTRALUM, DRUG BLLN, PERC Completed 03/09/16 PAN HANLEY MD FLUOROSCOPY OF LEFT LOWER EXTREMITY ARTERIES Completed 03/09/16 PAN HANLEY MD TRANSFUSE NONAUT RED BLOOD CELLS IN PERIPH VEIN, PERC Completed 03/10/16 KIET GARRIDO DO ROUTINE VENIPUNCTURE Completed 03/22/16 INSERT BLADDER CATHETER Completed 03/22/16 CT HEAD/BRAIN W/O DYE Completed 03/22/16 CHEST X-RAY 2VW FRONTAL&LATL Completed 03/22/16 CT NECK SPINE W/O DYE Completed 03/22/16 COMPREHEN METABOLIC PANEL Completed 03/22/16 URINALYSIS AUTO W/O SCOPE Completed 03/22/16 ASSAY OF LACTIC ACID Completed 03/22/16 PROCALCITONIN (PCT) Completed 03/22/16 ASSAY OF TROPONIN QUANT Completed 03/22/16 COMPLETE CBC W/AUTO DIFF WBC Completed 03/22/16 ELECTROCARDIOGRAM TRACING Completed 03/22/16 HYDRATION IV INFUSION INIT Completed 03/22/16 EMERGENCY DEPT VISIT Completed 03/22/16 [id number]"INFUSION, NORMAL SALINE SOLUTION , 1000 CC" Completed 03/22/16 TREAT THIGH FRACTURE Completed 03/26/16 GAUDENCIO ARZOLA MD BLOOD TRANSFUSION SERVICE Completed 03/26/16 GAUDENCIO ARZOLA MD REPLACE L HIP JT, FEMORAL W CERAMIC, UNCEMENT, OPEN Completed 03/28/16 GAUDENCIO ARZOLA MD, MARK A CRNA TRANSFUSE NONAUT RED BLOOD CELLS IN PERIPH VEIN, PERC Completed 03/26/16 SOPHIE CARRANZA MD GAIT TRAINING THERAPY Completed 03/31/16 HELENE JON MD PT EVALUATION Completed 03/31/16 HELENE JON MD THERAPEUTIC EXERCISES Completed 03/31/16 HELENE JON MD OT EVALUATION Completed 03/31/16 HELENE JON MD GAIT TRAINING/AMBULAT TREATMENT USING ASSIST EQUIPMENT Completed 03/31/16 HELENE JON MD THERAPEUTIC EXERCISE TREATMENT OF MUSCULOSK WHOLE Completed 03/31/16 HELENE JON MD HOME MANAGEMENT TREATMENT Completed 03/31/16 HELENE JON MD ROUTINE VENIPUNCTURE Completed 04/14/16 ROUTINE VENIPUNCTURE Completed 04/14/16 ROUTINE VENIPUNCTURE Completed 04/14/16 INSERT BLADDER CATHETER Completed 04/14/[address] HEAD/BRAIN W/O DYE Completed 04/14/16 CHEST X-RAY 2VW FRONTAL&LATL Completed 04/14/16 CT NECK SPINE W/O DYE Completed 04/14/16 METABOLIC PANEL TOTAL CA Completed 04/14/16 COMPREHEN METABOLIC PANEL Completed 04/14/16 URINALYSIS AUTO W/O SCOPE Completed 04/14/16 ASSAY OF LACTIC ACID Completed 04/14/16 ASSAY OF LACTIC ACID Completed 04/14/16 PROCALCITONIN (PCT) Completed 04/14/16 ASSAY OF TROPONIN QUANT Completed 04/14/16 COMPLETE CBC W/AUTO DIFF WBC Completed 04/14/16 COMPLETE CBC W/AUTO DIFF WBC Completed 04/14/16 BLOOD CULTURE FOR BACTERIA Completed 04/14/16 BLOOD CULTURE FOR BACTERIA Completed 04/14/16 ELECTROCARDIOGRAM TRACING Completed 04/14/16 AIRWAY INHALATION TREATMENT Completed 04/14/16 AIRWAY INHALATION TREATMENT Completed 04/14/16 AIRWAY INHALATION TREATMENT Completed 04/14/16 HYDRATE IV INFUSION ADD-ON Completed 04/14/16 HYDRATE IV INFUSION ADD-ON Completed 04/14/16 HYDRATE IV INFUSION ADD-ON Completed 04/14/16 THER/PROPH/DIAG INJ IV PUSH Completed 04/14/16 TX/PRO/DX INJ NEW DRUG ADDON Completed 04/14/16 EMERGENCY DEPT VISIT Completed 04/14/16 448072WFC-FEXKSRT ITEM OR SERVICE Completed 04/14/16 000063QYF-PPXISQK ITEM OR SERVICE Completed 04/14/16 250897DMO-IQBCNJZ ITEM OR SERVICE Completed 04/14/16 750398XMR-ENUWYKN ITEM OR SERVICE Completed 04/14/16 857217RNT-JQHQEJO ITEM OR SERVICE Completed 04/14/16 175577ZUN-ETAKMNK ITEM OR SERVICE Completed 04/14/16 833950ZGL-JLADXPF ITEM OR SERVICE Completed 04/14/16 134262ZET-HSCJBBG ITEM OR SERVICE Completed 04/14/16 701146CIC-ZHRRWUW ITEM OR SERVICE Completed 04/14/16 323515GJR-DFUOXPO ITEM OR SERVICE Completed 04/14/16 750438VMX-YLRWPKD ITEM OR SERVICE Completed 04/14/16 193697LJH-DGNTIEI ITEM OR SERVICE Completed 04/14/16 888325OTH-NVLELUA ITEM OR SERVICE Completed 04/14/16 662310OZI-HYOYXKT ITEM OR SERVICE Completed 04/14/16 851477BIT-SUSJNMQ ITEM OR SERVICE Completed 04/14/16 677586TMP-MIZUMNR ITEM OR SERVICE Completed 04/14/16 654539AAF-NMXJIXP ITEM OR SERVICE Completed 04/14/16 746056WNF-TQNRNJK ITEM OR SERVICE Completed 04/14/16 603221EVI-CKAJSWE ITEM OR SERVICE Completed 04/14/16 941666FPV-UMAZRFK ITEM OR SERVICE Completed 04/14/16 156239WYM-TTLCBGK ITEM OR SERVICE Completed 04/14/16 548522BRR-YJVSCCI ITEM OR SERVICE Completed 04/14/16 011379VAN-SDHRWKM ITEM OR SERVICE Completed 04/14/16 556091SRG-DJXZZIE ITEM OR SERVICE Completed 04/14/16 283047UYW-FELZCVW ITEM OR SERVICE Completed 04/14/16 618770"HOSPITAL OBSERVATION SERVICE, PER HOUR" Completed 04/14/16 732897"HOSPITAL OBSERVATION SERVICE, PER HOUR" Completed 04/14/16 399845"HOSPITAL OBSERVATION SERVICE, PER HOUR" Completed 04/14/16 583478"INJECTION, ONDANSETRON HYDROCHLORIDE, PER 1 MG" Completed 04/14/16 115601"INJECTION, ONDANSETRON HYDROCHLORIDE, PER 1 MG" Completed 04/14/16 172530"INFUSION, NORMAL SALINE SOLUTION , 1000 CC" Completed 04/14/16 476137"INFUSION, NORMAL SALINE SOLUTION , 1000 CC" Completed 04/14/16 400594"INFUSION, NORMAL SALINE SOLUTION , 1000 CC" Completed 04/14/16 PREDNISONE, 10 MG TAB Completed 04/14/16 489362"ADMINISTERED THROUGH DME, UNIT DOSE FORM, 15 MICROGRA Completed Encounters Encounter Location Arrival/Admit Date Discharge/Depart Date Attending Provider Departed Emergency Room [facility] 05/28/16 2:07pm 05/28/16 5: 29pm JORDAN CAMPOS MD Discharged Inpatient (obs) [facility] 04/14/16 7:57pm 04/15/16 4: 18pm KIET GARRIDO DO Discharged Inpatient [facility] 03/31/16 3:45pm 04/09/16 2:43pm HELENE JON MD Discharged Inpatient [facility] 03/26/16 11:47am 03/31/16 3:40pm KIET GARRIDO DO Departed Emergency Room [facility] 03/22/16 2:30pm 03/22/16 7: 02pm AYDIN SEBASTIAN MD Discharged Inpatient [facility] 03/05/16 10:35am 03/12/16 11: 05am KIET GARRIDO DO Recent Diagnosis
--- OUTSIDE RECORDS SUMMARY | 2016-11-13 17:53 | XMS REPORT | Continuity of Care Document ---
Author Author [facility] Organization [facility] Address Unknown Phone Unavailable Support Name Relationship Address Phone KIET GARRIDO DO Caregiver [facility] [address] [place] [phone] LYNNETTE LUKE Next Of Kin [address] [place], [place] [phone] Insurance Providers Payer Name Policy Number Subscriber Name Relationship Medicare [id number] Benito Luke 18 Self Advance Directives Directive Response Recorded Date/Time Ordered Resuscitation Status Full Code 10/29/14 6:17pm Resuscitation Documents on File No 10/29/14 6:08pm Problems Medical Problems Problem Onset Date Status [...] No hospital discharge instructions. Plan of Care No plan of care. Functional Status Query Response Date Recorded Physical [...] F (96.8 - 99.1) Temperature (Calculated Celsius) 37.39540 degrees C (36.0 - 37.3) Temperature Source [...] 2013 1:00pm 1.31 UG/L N 0-3.0 COMMENT [facility] rm #[id number], RN will call Chemistry Specimen [...] 1.5 ng/mL - CKMB Mass performed at [facility] Reference Lab, [facility] [place], [place] [address]Tkoipir Director [place] Kuldeep W, DO Creatinine October 30, 2014 6:20am 1.2 [...] 20, 2013 7:34pm LAB TEST FORM REQUEST [id number] - Large Platelets August 10, 2013 4:18am [...] 27, 2013 5:05am 1.0 % H 0-0 WP-Xnp-N-Type Natriuretic Peptide July 14, 2014 5:05pm 1530 [...] 2007 9:05pm Not Performed - Urine Specific Dickson July 14, 2014 5:56pm 1.025 - Has [...] 2013 1:50pm Name: BENITO LUKE Unit #: [id number] : 1940 Sex: M Loc / Svc: SRG DOS: Signed Report #: [id number] DIAGNOSTIC IMAGING REPORT TYPE OF EXAM: CHEST [...]
--- OUTSIDE RECORDS SUMMARY | 2016-11-13 17:53 | XMS REPORT | Continuity of Care Document ---
Author Author [facility] Organization [facility] Address Unknown Phone Unavailable Support Name Relationship Address Phone PAN HANLEY MD Caregiver [address] [place] [address] [address] [place] [address] Unavailable KIET GARRIDO DO Caregiver [address] [place] [address] [address] [place] [address] Unavailable LYNNETTE LUKE Next Of Kin [address] [place] [address] Insurance Providers Guarantor Benito Luke Address [address] [place] [address] Email [email or web address] Payer Medicare Policy Number [id number] Subscriber's Name Benito Luke Relationship 18 Self Payer [facility] Policy Number [id number] Subscriber's Name Benito Luke Relationship 18 Self Group Number [id number] Advance Directives Directive Response Recorded Date/Time Ordered Resuscitation Status Full Code 09/29/16 8:42am Resuscitation Documents on File Yes 09/29/16 11:15am DPOA for Healthcare Only Yes 09/29/16 11:15am Living Will No 09/29/16 11:15am Problems Active Problems Medical Problem Onset Date [...] Route Directions Days Qty Instructions Start Date Acetaminophen/Hydrocodone Bitart (Ragland 7.5-325 Tablet) 7.5-325 Tablet 1 Tab Oral Every 8 Hours as needed for Pain 03/05/16 Albuterol Sulfate (Ventolin Hfa 90 Mcg/Actuation) 18 Gm Hfa.aer.ad 1 Puff Inhalation As Needed 07/23/15 Arformoterol Tartrate (Brovana) 15 Mcg/2 Ml Vial.neb. 1 Vial Inhalation Twice A Day 01/04/12 Bumetanide 2 Mg Tablet 4 Mg Oral Daily 03/05/16 Carbamazepine 300 Mg Cpmp.12hr 300 Mg Oral Twice A Day 05/28/16 Clopidogrel Bisulfate (Clopidogrel) 75 Mg Tablet 75 Mg Oral Daily 03/22/16 Dabigatran Etexilate Mesylate (Pradaxa) 150 Mg Capsule 150 Mg Oral Twice A Day 10/02/15 Docusate Sodium (Colace) 100 Mg Capsule 100 Mg Oral Daily Escitalopram Oxalate (Lexapro) 20 Mg Tablet 20 Mg Oral Daily Ferrous Sulfate (Iron Supplement) 325 Mg Tablet 325 Mg Oral Twice A Day 03/05/16 Gabapentin 300 Mg Capsule 300 Mg Oral Three Times A Day 07/23/15 Ipratropium/Albuterol Sulfate (Iprat-Albut 0.5-3(2.5) Mg/3 Ml) 3 [...] Mg Tablet 20 Mg Oral Daily 01/04/12 Primidone 50 Mg Tablet 50 Mg Oral Twice A Day 08/11/13 Simvastatin 10 Mg Tablet 10 Mg Oral Bedtime 08/11/13 Sodium Chloride (Deep Sea) 450 Madison/45 Ml Madison 2 Madison Each Nostril Four Times Daily as needed for Dry Nasal Passages 05/28/16 Sucralfate (Carafate) 1 G Tablet 1 G Oral Bedtime 01/04/12 Trazodone Hcl 100 Mg Tablet 100 Mg Oral Bedtime 01/04/12 Past Home Medications Medication Directions Ordered Status [...] Problem Response Recorded Date/Time Onset Date Status Reason for Hospitalization heart cath 09/29/2016 6:12pm Not Applicable Not Applicable Chewing Tobacco Status No 09/01/2013 1:29pm Not Applicable Not Applicable Hx Substance Use No 09/29/2016 11:19am Not Applicable Not Applicable Hx Alcohol Use No 09/29/2016 11:19am Not Applicable Not Applicable Has the pt used tobacco in the last 12 months No 09/29/2016 11:19am Not Applicable Not Applicable Tobacco Usage none other 03/06/2016 2:39pm Not Applicable Not Applicable Query Response Start Date Stop Date Smoking Status Former smoker Hospital Discharge Instructions Instructions: Care Instructions: I was in the hospital because (patient own words): FOR A HEART CATH Discharge Diet: Resume heart healthy diet Discharge Activity: Limit activity for 2 days. No lifting more than 10 pounds, no pushing or pulling for 1 week. Follow Up Appointments: Follow up with Dr. Hanley on: 10/27/16 at 11:00 Pending Lab / Results: No Pending Lab Patient Instructions: Do not drive, operate machinery or drink alcohol for 2 days. You may resume Metformin on Wednesday10/02/16 Expected Signs/Symptoms: bruising and tenderness to site Notify Physician If: Site is bleeding, abnormal drainage, increased pain or fever of 101.5 or more. During Business Hours:: Please call the physician's office at [phone] After Business Hours:: Please call [phone] and have the electronic masking system operator page the physician. Pain Management/Treatment: OTC pain meds if needed Wound/Incision Care: Keep site clean and dry. No tub baths or swimming for 1 week. You may shower. Condition at time of discharge: Good Plan of Care Discharge Date 09/29/16 6:50pm Instructions/Education Provided [facility] Heart Cath Prescriptions See Medication Section Functional Status Query Response Date Recorded Mobility Status Ambulatory w/assist September 29, 2016 11:00am Assistive Devices Front Wheeled Walker September 29, 2016 11:00am Activity Limitations Weakness Shortness of breath Dizziness September 29, 2016 11:00am Feeding Ability Independent September 29, 2016 11:00am Toileting Ability Independent September 29, 2016 11:00am Grooming Ability Independent September 29, 2016 11:00am Dressing Ability Assist September 29, 2016 11:00am Driving Ability Dependent September 29, 2016 11:00am Housework Ability Dependent September 29, 2016 11:00am Meal Preparation Ability Dependent September 29, 2016 11:00am Stair Climbing Ability Dependent September 29, 2016 11:00am Ability to complete ADL's impeded by No change September 29, 2016 11:15am Cognitive/Perceptual Impairments Impaired vision September 29, 2016 11:00am Visual Assistive Devices Glasses With patient September 29, 2016 11:00am Allergies, Adverse Reactions, Alerts Allergen Type Severity Reaction Status Last Updated Sulfa (Sulfonamide Antibiotics) Allergy Unknown THROAT SWELLED Active TAPE Allergy Mild RASH Active 01/07/15 Immunizations Query Response on File Recorded Date/Time Hx Influenza Vaccination Y 05/201609/29/16 11:19am Hx Pneumococcal Vaccination Yes 09/29/16 11:19am Hx Influenza Vaccination Y 05/201609/29/16 11:19am Influenza Vaccine Hx MAY 2015 05/28/16 2:35pm Tetanus Diptheria Vaccine History UTD PER PATIENT 05/28/16 2:35pm Vital Signs Acute Vital Signs Vital Response Date/Time Temperature (Fahrenheit) 98.0 deg F (96.8 - 99.1) 09/29/2016 11:30am Temperature (Calculated Celsius) 36.25357 degrees C (36.0 - 37.3) 09/29/2016 11:30am Pulse Rate (adult) 67 bpm (60 - 100) 09/29/2016 6:30pm Respiratory Rate 30 breaths/min (10 - 20) 09/29/2016 6:30pm O2 Sat by Pulse Oximetry 98 % (90 - 100) 09/29/2016 6:30pm Oxygen Delivery Method Nasal Cannula 09/29/2016 6:30pm Oxygen Delivery Method Nasal Cannula 09/29/2016 11:30am Oxygen Flow Rate 2.00 L/min 09/29/2016 6:30pm Blood Pressure 151/83 mm Hg 09/29/2016 6:30pm Blood Pressure Source Automatic Cuff 09/29/2016 6:30pm Height (Feet) 5 feet 09/29/2016 11:28am Height (Inches) 11.00 inches 09/29/2016 11:28am Weight (Kilograms) 80.600 kg 09/29/2016 11:52am Body Mass Index (BMI) 24.8 09/29/2016 11:28am Results Laboratory Results Test Name Result Units Flags Reference Collection Date/Time Result Date/ Time Comments White Blood Count 10.4 T/MM3 4.5-11.0 09/29/2016 11:09/29/2016 12: 02pm Red Blood Count 4.16 M/MM3 L 4.50-5.90 09/29/2016 11:09/29/2016 12: 02pm Hemoglobin 11.4 GM/DL L 13.5-17.5 09/29/2016 11:09/29/2016 12:02pm Hematocrit 35.8 % L 41-53 09/29/2016 11:09/29/2016 12:02pm Mean Corpuscular Volume 86.1 UM3 80-100 09/29/2016 11:09/29/2016 12:02pm Mean Corpuscular Hemoglobin 27.4 UUG 26-34 09/29/2016 11:2016 12:02pm Mean Corpuscular Hemoglobin Concent 31.8 GM/DL 31-37 09/29/2016 11:09/29/2016 12:02pm RDW Standard Deviation 50.8 FL H 36.9-50.2 09/29/2016 11:2016 12:02pm Platelet Count 499 T/MM3 H 130-400 09/29/2016 11:09/29/2016 12: 02pm Mean Platelet Volume 8.9 UM3 L 9.4-12.4 09/29/2016 11:09/29/2016 12 :02pm Neutrophils % (Manual) 78.0 % H 33-66 09/29/2016 11:09/29/2016 12: 08pm Lymphocytes % (Manual) 18.0 % L 23-45 09/29/2016 11:09/29/2016 12: 08pm Monocytes % (Manual) 3.0 % 0-9.0 09/29/2016 11:09/29/2016 12:08pm Basophils % (Manual) 1.0 % 0-2 09/29/2016 11:09/29/2016 12:08pm Absolute Neutrophils (Manual) 8.1 T/MM3 H 1.8-7.7 09/29/2016 11: 12:08pm Lymphocytes # (Manual) 1.9 T/MM3 1-4.8 09/29/2016 11:09/29/2016 12 :08pm Monocytes # (Manual) 0.3 T/MM3 0-0.8 09/29/2016 11:09/29/2016 12: 08pm Basophils # (Manual) 0.1 T/MM3 0-0.2 09/29/2016 11:09/29/2016 12: 08pm Red Cell Morphology Comment NORMAL 09/29/2016 11:09/29/2016 12 :08pm Prothromb Time International Ratio 0.97 0.76-1.04 09/29/2016 11:09/29/2016 12:33pm THERAPUTIC RANGE=2.00-3.00 FOR ANTI-THROMBOSIS THERAPUTIC RANGE=2.50-3.50 FOR IMPLANTED VALVE Icterus Index < 2 0-7 09/29/2016 11:09/29/2016 11:46am Chemistry Specimen Hemolysis < 15 0-25 09/29/2016 11:09/29/2016 11:46am 0-25: Specimen Exhibited No Hemolysis. Turbidity < 20 0-20 09/29/2016 11:09/29/2016 11:46am Sodium Level 138 MEQ/L 134-144 09/29/2016 11:09/29/2016 11:46am Potassium Level 4.4 MEQ/L 3.6-5 09/29/2016 11:09/29/2016 11:46am Chloride Level 98 MEQ/L 98-107 09/29/2016 11:09/29/2016 11:46am Carbon Dioxide Level 29 MEQ/L 22-30 09/29/2016 11:09/29/2016 11: 46am Anion Gap 11 MEQ/L 5-15 09/29/2016 11:09/29/2016 11:46am Blood Urea Nitrogen 16.0 MG/DL 9-20 09/29/2016 11:20am 09/29/2016 11: 46am Creatinine 1.0 MG/DL 0.8-1.5 09/29/2016 11:20am 09/29/2016 11:46am BUN/Creatinine Ratio 16 RATIO 6-26 09/29/2016 11:20am 09/29/2016 11: 46am Glomerular Filtration Rate Calc 73 09/29/2016 11:20am 09/29/2016 11 :46am Glucose Level 112 MG/DL H 75-110 09/29/2016 11:20am 09/29/2016 11:46am Calculated Osmolality 268 MOSM/KG 261-280 09/29/2016 11:20am 2016 11:46am Calcium Level 8.7 MG/DL 8.4-10.2 09/29/2016 11:20am 09/29/2016 11:46am Glucometer 112 mg/dL H 75-110 09/29/2016 5:32pm 09/29/2016 8:28pm Procedures No known history of procedures. Encounters Encounter Location Arrival/Admit Date Discharge/Depart Date Attending Provider Departed Clinic [facility] 09/29/16 10:53am 09/29/16 6:50pm PAN HANLEY MD
--- OUTSIDE RECORDS SUMMARY | 2016-11-13 17:54 | XMS REPORT | Continuity of Care Document ---
Author Author [facility] Organization [facility] Address Unknown Phone Unavailable Support Name Relationship Address Phone DEVAN ROBERTO DO Caregiver [facility] [address] [place] [address] JAMAAL SANCHEZ DO Caregiver [address] [place] [address] KIET GARRIDO DO Caregiver [facility] [address] [facility] [address] [place] [phone] AYDIN SEBASTIAN MD Caregiver [address] [place] [address] [place] [address] LYNNETTE LUKE Next Of Kin [address] [place] [address] Insurance Providers Payer Name Policy Number Subscriber Name Relationship Medicare [id number] Benito Luke Self Other A Insurance [id number] Benito Luke Self Advance Directives Directive Response Recorded Date/Time Ordered Resuscitation Status Full Code 07/15/14 10:45am Resuscitation Documents on File Yes 07/14/14 8:15pm Chief Complaint and Reason for Visit Chief Complaint DEHYDRATION,GASTROENTERITIS Reason for Visit Sepsis Gastroenteritis Dehydration Gastroenteritis Diabetes HTN (hypertension) CAD (coronary artery disease) COPD (chronic obstructive pulmonary disease) Chronic respiratory insufficiency Hypercholesteremia Encephalopathy acute Bandemia Hypotension Physical debility Problems Medical Problems Problem Onset Date Status [...] Hypotension Unknown Resolved Physical debility Unknown Active Medications Medication Dose Route Sig Days/Qty [...] 0.5 Mg IH TWICE A DAY 01/04/12 Active [Vitamin D] 05/26/12 12/04/12 Discontinued [Lexapro] 05/26/12 12/04/12 Discontinued Clindamycin Hcl 300 Mg PO THREE TIMES A DAY 4 Days 06/19/12 11/14/12 Discontinued Tramadol Hcl 50 Mg PO NEEDED 11/14/12 12/05/12 Discontinued Isosorbide Mononitrate 60 Mg PO DAILY 11/14/12 12/04/12 Discontinued Nitroglycerin 0.4 Mg SL NEEDED 11/14/12 12/05/12 Discontinued Amiodarone Hcl 200 Mg PO TWICE A DAY 12/04/12 Active Escitalopram Oxalate 20 Mg PO DAILY 12/04/12 [...] NAUSEA &/OR VOMITING 30 Qty 07/17/14 Active Social History Social History Problem Response Recorded Date/Time Chewing Tobacco Status No 09/01/2013 1:29pm Hx Substance Use No 07/14/2014 4:35pm Hx Alcohol Use No 07/14/2014 4:35pm Has the pt used tobacco in the last 12 months No 07/14/2014 8:16pm Tobacco Usage none 07/15/2014 10:33am Query Response Start Date Stop Date Smoking Status Former smoker Hospital Discharge Instructions Instructions: Care Instructions: Reason for Hospitalization: sepsis, gastroenteritis, dehydration I was in the hospital because (patient own words): VOMITING, DIARRHEA Discharge Diet: gradual increase as tolerated Discharge Activity: as tolerated Follow Up Appointments: FOLLOW UP WITH Rosa GROVES IN HER OFFICE ON 07/24/2014 AT 10:30 AM. Condition at time of discharge: Good Notify Physician If: During the week: If you have questions about your care or wound, Call Dr. Schofield's office at [phone]. During the evening or on the weekends: If you have questions about your care or wound, Call [facility] at [phone] and have the pipeline operator page Dr. Schofield. Condition at time of discharge: Good Condition at time of discharge: Good Plan of Care Discharge Date 07/17/14 12:14pm Disposition 01 DISCHARGED HOME, SELF-CARE Instructions/Education Provided DI for Dehydration -- Adult DI for Sepsis -- Adult Encephalopathy DI for Hypotension Prescriptions See Medications Section Functional Status Query Response Date Recorded Physical Hygiene Assist July 17, 2014 9:51am Disabilities None July 17, 2014 9:51am Devices Used None July 17, 2014 9:51am Dressing Assist July 17, 2014 9:51am Ambulation Assist July 17, 2014 9:51am Diet Self July 17, 2014 9:51am Mental Status Alert July 17, 2014 9:51am Disabilities None July 17, 2014 9:51am Devices Used None July 17, 2014 9:51am Physical Hygiene Assist July 17, 2014 9:51am Dressing Assist July 17, 2014 9:51am Ambulation Assist July 17, 2014 9:51am Diet Self July 17, 2014 9:51am Allergies, Adverse Reactions, Alerts Allergen Type Severity Reaction Status Last Updated Sulfa (Sulfonamide Antibiotics) Allergy Unknown THROAT SWELLED Active 01/20 TAPE Allergy Mild Active 08/03/13 Immunizations Name Given Type Hx Influenza Vaccination Y MAY 2014 Historical Hx Pneumococcal Vaccination Y 06/2010 Historical Hx Influenza Vaccination Y MAY 2014 Historical Vital Signs Acute Vital Signs Vital Response Date/Time Temperature (Fahrenheit) 98.0 deg F (96.8 - 99.1) Temperature (Calculated Celsius) 36.98058 degrees C (36.0 - 37.3) Temperature Source Oral Pulse Rate (adult) 74 bpm (60 - 100) Respiratory Rate 20 breaths/min (10 - 20) O2 Sat by Pulse Oximetry 92 % (90 - 100) Oxygen Delivery Method Nasal Cannula Oxygen Flow Rate 2.00 L/min Blood Pressure 151/79 mm Hg Blood Pressure Source Automatic Cuff Height 5 ft 11 in Weight 197 lb Body Mass Index 27.0 kg/m^2 Results Test Source Date Result Interp. Ref. Range Comments Acanthocytes August 12, 2013 1:00pm 1+ - COMMENT DAILY Activated Partial Thromboplast Time July 14, 2014 5:05pm 30.7 SEC N 24-36 Alanine Aminotransferase (ALT/SGPT) July 14, 2014 5:05pm 58 U/L N 21 -72 Albumin July 14, 2014 5:05pm 3.1 G/DL L 3.5-5.0 Albumin/Globulin Ratio July 14, 2014 5:05pm 1.2 RATIO N 1.1-2.2 Alkaline Phosphatase July 14, 2014 5:05pm 81 U/L N 38-126 Anion Gap July 16, 2014 4:31am 3 MEQ/L L 5-15 Anisocytosis July 15, 2014 4:04am 1+ [...] COMMENT difficulty breathing Aspartate Amino Transf (AST/SGOT) July 14, 2014 5:05pm 23 U/L N 17- 59 B-Type Natriuretic Peptide November 06, 2010 4:25am 62 PG/ML N 15-100 COMMENT add to blood in lab from this morning BUN/Creatinine Ratio July 16, 2014 4:31am 12 RATIO N 6-26 Band Neutrophils # July 15, 2014 4:04am 1.5 T/MM3 - Band Neutrophils % July 15, 2014 4:04am 19.0 % DH 0-6 Basophils # (Auto) July 16, 2014 4:31am 0.0 T/MM3 N 0-0.2 Basophils # (Manual) August 13, 2013 5:50am 0.0 T/MM3 N 0-0.2 COMMENT DAILY Basophils % (Manual) August 13, 2013 5:50am 0.0 % N 0-2 COMMENT DAILY Basophils (%) (Auto) July 16, 2014 4:31am 0.5 % N 0-2 Blood Gas Tidal Volume May 30, 2010 4:25pm Not Performed 0-1200 Blood Gas Vent Rate May 30, 2010 4:25pm Not Performed 0-30 Blood Urea Nitrogen July 16, 2014 4:31am 12.0 MG/DL DN 9-20 C-Reactive Protein December 20, 2013 6:00pm < 5.0 MG/L 0-9 C. difficile Toxin B Gene (PCR) July 14, 2014 11:45pm Negative - If Toxin A is clinically indicated, treat accordingly. Calcium Level July 16, 2014 4:31am 7.3 MG/DL L 8.4-10.2 Calculated Osmolality July 16, 2014 4:31am 270 MOSM/KG N 261-280 Carbon Dioxide Level July 16, 2014 4:31am 25 MEQ/L N 22-30 Carcinoembryonic Antigen March 15, 2013 1:00pm 1.31 UG/L N 0-3.0 COMMENT NSC rm #[id number], RN will call Chemistry Specimen Hemolysis July 16, 2014 4:31am < 15 0-25 0-25 : No Hemolysis.26-70: Slight Hemolysis - can falsely elevate K and Urine Protein. 71-285: Moderate Hemolysis - can falsely elevate K, Troponin I, CA 19-9, PTH, CSF GLucose, and Urine Protein, and can falsely decrease Phenytoin. 286-999: Gross Hemolysis - can falsely elevate K, Troponin I, CA 19-9, PTH, CSF Glucose, and Urine Protine, and can falsely decrease Phenytoin. Recommend specimen recollection. Chloride Level July 16, 2014 4:31am 113 MEQ/L H 98-107 Cholesterol Level January 05, 2012 4:30am 160 MG/DL N 132-199 Cholesterol/HDL Ratio January 05, 2012 4:30am 3.7 RATIO N 0-5.0 Clostridium difficile [id number] July 21, 2013 10:32am Negative - Has specimen been collected/obtained? Y Conjugated Bilirubin December 04, 2012 3:33pm 0.00 MG/DL N 0.00-0.30 Creatine Kinase MB July 27, 2013 8:08am 1.1 NG/ML N 0-3.4 COMMENT cpCOMMENT CP Creatinine July 16, 2014 4:31am 1.0 MG/DL DN 0.8-1.5 D-Dimer July 21, 2013 2:50am 1535 NG/ML H 0-230 <224 NG/ML= PRESUMPTIVE NEGATIVE FOR PE OR DVT>224 NG/ML=ADDITIONAL EVALUATION FOR PE OR DVT RECOMMENDED Differential Total Cells Counted November 10, 2010 5:40am 100 % - EKG June 21, 2009 11:20am Complete - Eosinophils # (Auto) July 16, 2014 4:31am 0.1 T/MM3 N 0-0.5 Eosinophils # (Manual) July 14, 2014 5:05pm 0.1 T/MM3 N 0-0.5 Eosinophils % (Manual) July 14, 2014 5:05pm 1.0 % N 0-4 Eosinophils (%) (Auto) July 16, 2014 4:31am 0.8 % N 0-4 Erythrocyte Sedimentation Rate December 20, 2013 6:00pm 9 MM/HR N 0-15 Escherichia coli 0157 Antigen July 22, 2013 1:25pm Negative - Has specimen been collected/obtained? Y Fungal Antibodies June 18, 2012 4:44am Send out - COMMENT with AM labs Globulin July 14, 2014 5:05pm 2.6 G/DL N 2.4-3.6 Glomerular Filtration Rate Calc July 16, 2014 4:31am 73 - Glucometer July 15, 2014 10:05am 111 mg/dL H 75-110 Glucose Level July 16, 2014 4:31am 74 MG/DL L 75-110 HDL Cholesterol Direct January 05, 2012 4:30am 43 MG/DL N 40-60 Hematocrit July 16, 2014 4:31am 31.1 % L 41-53 Hemoglobin July 16, 2014 4:31am 9.8 GM/DL L 13.5-17.5 Hemoglobin A1c November 06, 2010 4:25am 7.1 % H 6-7 <6.0 NON-DIABETIC RANGE6.0-7.0 ADA THERAPEUTIC RANGE >7.0 ACTION SUGGESTED Hypochromasia August 10, 2013 4:18am 1+ - Icterus Index July 16, 2014 4:31am < 2 0-7 Immature Granulocyte # (Auto) July 16, 2014 4:31am 0.04 T/MM3 H 0.00 -0.03 Immature Granulocyte % (Auto) July 16, 2014 4:31am 0.7 % H 0.0-0.5 Influenza Type A Antigen July 15, 2014 10:48am Negative - Negative for Flu A protein antigen. Assay sensitivity is90%. Influenza Type B Antigen July 15, 2014 10:48am Negative - Negative for Flu B protein antigen. Assay sensitivity is90%. LDL Cholesterol, Calculated January 05, 2012 4:30am 117 N 66-159 Lab Scanned Report December 20, 2013 7:34pm LAB TEST FORM REQUEST [id number] - Large Platelets August 10, 2013 4:18am Few - Lipase July 15, 2014 4:04am 19 U/L L 23-300 Lymphocytes # (Auto) July 16, 2014 4:31am 0.9 T/MM3 L 1-4.8 Lymphocytes # (Manual) July 15, 2014 4:04am 0.5 T/MM3 L 1-4.8 Lymphocytes % (Manual) July 15, 2014 4:04am 6.0 % L 23-45 Lymphocytes (%) (Auto) July 16, 2014 4:31am 15.3 % L 23-45 Magnesium Level August 07, 2013 5:14am 1.7 MG/DL N 1.6-2.3 Mean Corpuscular Hemoglobin July 16, 2014 4:31am 26.5 UUG N 26-34 Mean Corpuscular Hemoglobin Concent July 16, 2014 4:31am 31.5 GM/DL N 31-37 Mean Corpuscular Volume July 16, 2014 4:31am 84.1 UM3 N 80-100 Mean Platelet Volume July 16, 2014 4:31am 9.8 UM3 N 9.4-12.4 Metamyelocytes # July 27, 2013 5:05am 0.3 T/MM3 - Metamyelocytes % July 27, 2013 5:05am 2.0 % H 0-0 Monocytes # (Auto) July 16, 2014 4:31am 0.8 T/MM3 N 0-0.8 Monocytes # (Manual) July 15, 2014 4:04am 0.2 T/MM3 N 0-0.8 Monocytes % (Manual) July 15, 2014 4:04am 2.0 % N 0-9.0 Monocytes (%) (Auto) July 16, 2014 4:31am 13.3 % H 0-9.0 Myelocytes # July 27, 2013 5:05am 0.2 T/MM3 - Myelocytes % July 27, 2013 5:05am 1.0 % H 0-0 [id number] Natriuretic Peptide July 14, 2014 5:05pm 1530 PG/ML H 0-175 Rule in cut points: <50 years old=450; 50-75 years old=900; >75 years old=1800; When utilizing ProBNP rule-in cut points, adjustment for impaired renal function is typically not required. Neutrophils # (Auto) July 16, 2014 4:31am 4.2 T/MM3 N 1.8-7.7 Neutrophils # (Manual) July 15, 2014 4:04am 5.8 T/MM3 N 1.8-7.7 Neutrophils % (Manual) July 15, 2014 4:04am 72.0 % H 33-66 Neutrophils (%) (Auto) July 16, 2014 4:31am 69.4 % H 33-66 Nucleated Red Blood Cells August 11, 2013 5:11am 1 - Ovalocytes July 15, 2014 4:04am 1+ - Oxygen Delivery Method (LAB) July 23, 2013 2:55am Nasal cannula, liters - Phosphorus Level August 04, 2013 5:38am 3.1 MG/DL N 2.5-4.5 Platelet Count July 16, 2014 4:31am 283 T/MM3 N 130-400 Platelet Evaluation (Diff) August 10, 2013 4:18am Few - Poikilocytosis August 07, 2013 5:14am 2+ - Potassium Level July 16, 2014 4:31am 3.3 MEQ/L L 3.6-5 Prealbumin July 15, 2014 10:48am 15.5 [...] 3.50 FOR IMPLANTED VALVE RDW Standard Deviation July 16, 2014 4:31am 56.0 FL H 36.9-50.2 Reactive Lymphocytes # July 15, 2014 4:04am 0.1 T/MM3 H 0-0 Reactive Lymphocytes % July 15, 2014 4:04am 1.0 % H 0-0 Red Blood Count July 16, 2014 4:31am 3.70 M/MM3 L 4.50-5.90 Sodium Level July 16, 2014 4:31am 141 MEQ/L N 134-144 Stool Occult Blood July 14, 2014 11:45pm Negative - Stool for White Cells July 14, 2014 11:45pm Positive - Has specimen been collected/obtained? Y TB Test (QFT) CFP-10 June 18, 2012 4:44am Ref lab rpt scanned - - -- 06/20/12 1311 ---QUANTTB previously reported as: SEND OUT Thyroid Stimulating Hormone (TSH) July 15, 2014 10:48am 7.24 MIU/L H 0.47-4.68 COMMENT feliciano Total Bilirubin July 14, 2014 5:05pm 0.40 MG/DL N 0.20-1.30 Total Creatine Kinase July 27, 2013 8:08am 50 U/L L 55-170 COMMENT cpCOMMENT CP Total Protein July 14, 2014 5:05pm 5.7 G/DL L 6.3-8.2 Triglycerides Level January 05, 2012 4:30am 162 MG/DL H 40-160 Troponin I July 15, 2014 10:48am 0.019 ng/ml N 0-0.12 Turbidity July 16, 2014 4:31am < 20 0-20 Unconjugated Bilirubin December 04, [...] 2007 9:05pm Not Performed - Urine Specific [place] July 14, 2014 5:56pm 1.025 - Has [...] N 239-931 COMMENT feliciano White Blood Count July 16, 2014 4:31am 6.1 T/MM3 N 4.5-11.0 Blood Culture Peripheral Blood July 15, 2014 10:48am NO GROWTH AFTER 48 HOURS Shiga Toxin I & II Stool July 14, 2014 11:45pm Gram Stain Sputum-Expectorated Sputum November 05, 2010 12:45pm Gram Stain Chest February 14, 2013 1:50pm Name: BENITO LUKE Unit #: [id number] : 1940 Sex: M Loc / Svc: G DOS: 07/14/14 Signed Report #: [id number] DIAGNOSTIC IMAGING REPORT TYPE OF EXAM: CHEST 1 VIEW Dictated By: IDRIS ROSS MD INDICATION: ITS.REASON: fever, copd, hypoxia CHEST 1 VIEW: Comparison: July 14, 2014 Findings: Atelectasis or fluid along the right minor fissure has improved. There is a small amount of residual airspace disease in the retrocardiac left lower lobe. No pneumothorax. Right lung is clear. Heart size and mediastinal contours are stable. Pulmonary vascular congestion has resolved. Impression: Left lower lobe atelectasis, aspiration or pneumonia. Improved pulmonary vascular congestion. . Procedures No known history of procedures. Encounters Encounter Location Date/Time Discharged Inpatient [facility] 07/15/14 10:45am Recent Diagnosis Sepsis Gastroenteritis Dehydration Gastroenteritis Diabetes HTN (hypertension) CAD (coronary artery disease) COPD (chronic obstructive pulmonary disease) Chronic respiratory insufficiency Hypercholesteremia Encephalopathy acute Bandemia Hypotension Physical debility
--- NOTE | 2016-11-13 18:00 | NUR ---
MONITOR PLACED, SR [address]'S.
--- NOTE | 2016-11-13 18:06 | ERPDOC ---
Departure Disposition Decision Date: Nov 13, 2016 Disposition Decision Time: 19:39 (SAUMYA KEYES APRN) Disposition: 01 DISCHARGED HOME, SELF-CARE Impression Impression (SAUMYA KEYES APRN) Impression: Primary Impression: Chronic respiratory insufficiency Additional Impressions: Leg swelling Diarrhea Condition: Improved Seen By: Mid-level only (SAUMYA KEYES APRN) Referrals: KIET GARRIDO DO (Family) Patient Instructions: Acute Diarrhea (ED), COPD (Chronic Obstructive Pulmonary Disease) (ED) Problems/Meds/Labs Reviewed?: Yes Medications reviewed and manag: Yes (SAUMYA KEYES APRN) Additional Instructions: 1. Resume your nebulized treatments, you can take them up to every 4-6 hours as needed 2. Continue fluids to optimize hydration 3. Keep lower leg elevated and continue your diuretics. 4. Return to ER if you develop INCREASED trouble breathing or chest pain this weekend 5. Follow up with DR. Garrido next week. Follow up care ordered?: Yes Mental Status: Alert, Oriented (SAUMYA KEYES APRN) HPI - Respiratory General General Chief Complaint: Dyspnea/Respdistress Stated Complaint: TROUBLE BREATHING Time Seen by Provider: 18:00 Source: patient, family () Exam Limitations: no limitations (SAUMYA KEYES APRN) Time Seen by Provider: 17:49 (АЛЕКСАНДР SILVA DO) HPI - Respiratory General Initial Comments Benito is a 76 year old gentleman with multiple comorbid conditions including CAD , COPD with o2 dependency. Patient has increased o2 from 2 liters to 3 liters one month ago with more VERDUZCO. No new cough. No chest pain. Currently pain free. Right lower leg swelling for over 2 years, no recent changes except today there's now a small area that was weeping. Has had multiple negative lower leg dopplers per patient and . Takes Bumex. No vomiting. Diarrhea X 2 today, no blood in stools. states [facility] health nurse called Dr. Garrido to relay patient's status and he suggested patient coming to ER, so she brought him in for evaluation. Occurred At: home Onset: Constant Duration: other (weeks to months) Pain Scale: Now: 0/10 Prior Episodes/Possible Cause: frequent episodes Associated Symptoms: shortness of breath, DENIES: chest pain/soreness, cough, fever/chills Hx of Similar Symptoms: Yes (SAUMYA KEYES APRN) Allergies: Coded Allergies: Sulfa (Sulfonamide Antibiotics) (Verified Allergy, Unknown, THROAT SWELLED , 11/13/16) Uncoded Allergies: TAPE (Allergy, Mild, RASH, 01/07/15) SKIN BREAK OUT AND ITCHING Past History Patient Surgical History Left hip hemiarthroplasty, s/p hip fracture, 03-28-16 S/P CABG 06-18-2015 angioplasty drug eluding balloon [facility] left inguinal hernia 10-30-2014 cardiac cath EF 70%, grafts patents, [facility] heart cath, RCA 50% senosis, [facility] heart cath 2003 colonoscopy, polyps 2006 colonoscopy diverrticulosis 03-15-2013 colonoscopy, tubular adenomas x7, mild to moderate dysplasia, [facility] [id number], Hiatal hernia, early duodenal ulcer, [facility] left carotid endarterectomy (SAUMYA KEYES APRN) Past Medical History Metabolic: diabetes, hypertension ENMT: cataracts, glaucoma, sinusitis Cardiac: A-fib, CAD, CHF, other Hx Echocardiogram: Yes Date Last Echocardiogram: Nov 19, 2012 Ejection Fraction (%): 65 Respiratory: COPD, asthma, pneumonia GI: GERD, other, ulcers Male: BPH Neurological: CVA, TIA, neuropathy, seizures Musculoskeletal: back pain Integumentary: other Hematologic: anemia, blood transfusion Psychological: bipolar, depression (SAUMYA KEYES APRN) Surgical History General: EGD, colonoscopy, gallbladder, hernia, tonsils Cardiac: cardiac bypass, cardiac cath, cardiac stent, carotid endarterectomy, other (SAUMYA KEYES APRN) Family History Family PMH: FOUND: CAD, cancer (SAUMYA KEYES APRN) Vaccines Hx Influenza Vaccination: Yes (05/2016) Hx Pneumococcal Vaccination: Yes (SAUMYA KEYES APRN) Social History Does patient use chewing tobac: No Second Hand Exposure: No Substance Use Type: does not use Alcohol Intake: none Marital Status: Sexuality: female partner Housing: house Household Members: spouse, foster family Current Occupational Status: retired (SAUMYA KEYES APRN) Review of Systems Constitutional Constitutional: appetite decrease, DENIES: dizziness, fever (SAUMYA KEYES APRN) ENMT Mouth/Throat: change in swallowing (over last few months) (SAUMYA KEYES APRN) Cardiovascular Cardiac: dyspnea on exertion, DENIES: chest pain (SAUMYA KEYES FACILITIES MAINTENANCE SUPERVISOR) Pulmonary Respiratory: dyspnea, DENIES: cough (SAUMYA KEYES FACILITIES MAINTENANCE SUPERVISOR) GI Upper Abdomen: DENIES: vomiting Lower Abdomen: diarrhea (SAUMYA KEYES FACILITIES MAINTENANCE SUPERVISOR) General: other (difficulty urinating this morning but fine now) (SAUMYA KEYES FACILITIES MAINTENANCE SUPERVISOR) Musculoskeletal General: pain ("all over") (SAUMYA KEYES FACILITIES MAINTENANCE SUPERVISOR) Integumentary Skin: DENIES: rash (SAUMYA KEYES FACILITIES MAINTENANCE SUPERVISOR) Neurological General: headache ("not now") (SAUMYA KEYES APRN) All other Systems All Other Systems: Reviewed and Negative (SAUMYA KEYES APRN) Physical Exam General General Nourishment: well nourished, well developed, appears stated age, no acute distress (SAUMYA KEYES APRN) Vitals and Pain First Documented Vital Signs Date Time Temp Pulse Resp B/P Pulse Ox O2 Delivery O2 Flow Rate FiO2 11/13/16 17:52 98.2 80 20 157/80 96 Room Air 11/13/16 18:17 3.00 (DECEMBER,АЛЕКСАНДР M DO) Vitals and Pain Weight: Kilograms: Height (feet): 5 Height (inches): 11.00 Triage Pain Scale: (SAUMYA KEYES APRN) Eyes (brief) Eyes Brief: found: PERRL, not found: scleral icterus (SAUMYA KEYES APRN) ENMT (brief) ENMT Brief: FOUND: mucosa moist, NOT FOUND: pharnyx erythema (SAUMYA KEYES FACILITIES MAINTENANCE SUPERVISOR) Neck (brief) Neck: FOUND: trachea midline (SAUMYA KEYES FACILITIES MAINTENANCE SUPERVISOR) Respiratory (brief) Respiratory: FOUND: other (decreased aeration but grossly clear) (SAUMYA KEYES FACILITIES MAINTENANCE SUPERVISOR) Cardiovascular (brief) Cardiac: FOUND: peripheral edema (left lower leg with 2+ edema), regular rate, regular rhythm (SAUMYA KEYES FACILITIES MAINTENANCE SUPERVISOR) Abdomen (brief) Abdominal Brief: FOUND: bowel normo active x4, distended (SAUMYA KEYES FACILITIES MAINTENANCE SUPERVISOR) Lymphatic (brief) Lymphatic Brief: NOT FOUND: lymphedema (SAUMYA KEYES FACILITIES MAINTENANCE SUPERVISOR) Musculoskeletal (brief) Musculoskeletal Brief: NOT FOUND: loss of motion (SAUMYA KEYES FACILITIES MAINTENANCE SUPERVISOR) Integumentary (brief) Integumentary Brief: FOUND: dry, pink, warm (SAUMYA KEEYS FACILITIES MAINTENANCE SUPERVISOR) Psychiatric (brief) Psychiatric Brief: FOUND: alert, attentive, normal affect, oriented (SAUMYA KEYES FACILITIES MAINTENANCE SUPERVISOR) Progress Results/Orders Orders Procedure Category Date Status Time Bmp - Basic Metabolic LAB 11/13/16 Complete Panel 18:15 Probnp LAB 11/13/16 Complete 18:15 Cbc W/Auto LAB 11/13/16 Complete Diff-Reflex Manual 18:15 Troponin I W LAB 11/13/16 Complete Hemolysis Index 18:15 EKG EKG 11/13/16 Taken 18:15 Chest, Pa & Lateral RAD 11/13/16 Resulted 18:15 Iv Lock (Ed Only) EDM 11/13/16 Transmitted 18:15 Albuterol/Ipratropium PHA 11/13/16 Complete (Duoneb) 18:15 Us Venous Duplex, US 11/13/16 Resulted Lower Ext Lt Ua, Dip Wreflex LAB 11/13/16 Complete Microsc & Gusset Stitcher 19:07 (EB M DO) Lab Results Laboratory Tests Test 11/13/16 18:36 11/13/16 19:19 White Blood Count 10.0T/MM3 Red Blood Count 4.24M/MM3 Hemoglobin 11.5GM/DL Hematocrit 36.4% Mean Corpuscular Volume 85.8UM3 Mean Corpuscular Hemoglobin 27.1UUG Mean Corpuscular Hemoglobin Concent 31.6GM/DL RDW Standard Deviation 47.1FL Platelet Count 408T/MM3 Mean Platelet Volume 8.3UM3 Immature Granulocyte % (Auto) % Neutrophils (%) (Auto) % Lymphocytes (%) (Auto) % Monocytes (%) (Auto) % Eosinophils (%) (Auto) % Basophils (%) (Auto) % Absolute Immature Granulocyte (auto T/MM3 Absolute Neutrophils (auto) T/MM3 Absolute Lymphocytes (auto) T/MM3 Absolute Monocytes (auto) T/MM3 Absolute Eosinophils (auto) T/MM3 Absolute Basophils (auto) T/MM3 Neutrophils % (Manual) 81.0% Lymphocytes % (Manual) 17.0% Monocytes % (Manual) 1.0% Basophils % (Manual) 1.0% Absolute Neutrophils (Manual) 8.1T/MM3 Lymphocytes # (Manual) 1.7T/MM3 Monocytes # (Manual) 0.1T/MM3 Basophils # (Manual) 0.1T/MM3 Red Cell Morphology Comment Normal Turbidity < 20 Sodium Level 137MEQ/L Potassium Level 4.8MEQ/L Chloride Level 96MEQ/L Carbon Dioxide Level 28MEQ/L Anion Gap 13MEQ/L Blood Urea Nitrogen 7.0MG/DL Creatinine 0.9MG/DL Glomerular Filtration Rate Calc 82 BUN/Creatinine Ratio 8RATIO Glucose Level 116MG/DL Calculated Osmolality 263MOSM/KG Calcium Level 8.6MG/DL Icterus Index < 2 Troponin I < 0.012ng/ml WX-Lbz-T-Type Natriuretic Peptide 1260PG/ML Chemistry Specimen Hemolysis < 15 Urine Collection Type Urine Color Yellow Urine Turbidity Clear Urine pH 5.0 Urine Specific [place] 1.015 Urine Protein Negative Urine Glucose (UA) Negative Urine Ketones Negative Urine Blood Trace-intact Urine Nitrite Negative Urine Bilirubin Negative Urine Urobilinogen 0.2EU/DL Urine Leukocyte Esterase Negative Urinalysis Comment Microscopic not ind. () Medications Current ED Medications Albuterol/ Ipratropium (Duoneb) 3 ml O ONCE AEROSOL Last administered on t 19:21; Start 11/13/16 at 18:15; Stop 11/13/16 at 18:17; Status DC () Progress Progress 193 - reviewed imaging and lab with patient. He states he feels at baseline. Indicates brought him in because of the generalized body aches he was experiencing and worried he had a touch of stomach flu because of the diarrhea. He agrees he is well enough to return home with outpatient f/u. (SAUMYA KEYES APRN) EKG EKG : Rate: 60-100 Rhythm: sinus [place]vel: normal QRS: normal Intervals: normal ST/T: normal Interpreted by: signing physician (SAUMYA KEYES APRN) Xray Xray : Xray: CXR PA/Lat Interpretation: Normal (no acute changes), Interpreted by Me (december) (SAUMYA KEYES APRN) Ultrasound US : Ultrasound: Venous Doppler Interpretation: Normal, Reviewed Written Report (SAUMYA KEYES APRN) SAUMYA KEYES APRN Nov 13, 2016 18:06 DECEMBER,АЛЕКСАНДР Lagunas DO Nov 16, 2016 03:45
--- NOTE | 2016-11-13 18:12 | NUR ---
REPORT GIVEN TO CARLTON GRAY. CARE ASSUMED.
[2016-11-13] MEDS ORDERED: ALBUTEROL/IPRATROPIUM INHAL. 2.5mg-0.5mg/3ml Neb. AEROSOL ONE (18:15)
[2016-11-13 18:41] LABS: HCT - HEMATOCRIT 36.4 % (41-53); HGB - HEMOGLOBIN 11.5 GM/DL (13.5-17.5); MEAN CORPUSCULAR HGB 27.1 UUG (26-34); MEAN CORPUSCULAR HGB CONC(MCHC 31.6 GM/DL (31-37); MEAN CORPUSCULAR VOLUME 85.8 UM3 (80-100); MEAN PLATELET VOLUME 8.3 UM3 (9.4-12.4); RED BLOOD COUNT 4.24 M/MM3 (4.50-5.90)
--- NOTE | 2016-11-13 18:42 | NUR ---
SONO AT BEDSIDE.
--- OUTSIDE RECORDS SUMMARY | 2016-11-13 18:45 | XMS REPORT | Continuity of Care Document ---
Author Author [facility] Organization [facility] Address Unknown Phone Unavailable Support Name Relationship Address Phone KIET GARRIDO DO Caregiver [facility] [address] [place] [phone] LYNNETTE LUKE Next Of Kin [address] [place], [place] [id number] Insurance Providers Payer Name Policy Number Subscriber Name Relationship Medicare [id number] Benito Luke 18 Self Advance Directives Directive [...] up with Dr. Valle in 4-6 weeks. [phone]. Office will call with appointment time. Follow up with Dr. Garrido in 2 weeks. Call office on 10-31-14 to schedule appointment. Condition at time of discharge: Good Condition at time of discharge: Good worsening SOA, cough, fever > 101 General Information: n/a Condition at time of discharge: [place] Plan of Care Discharge Date 10/30/14 8:40pm Disposition 01 DISCHARGED HOME, SELF-CARE Instructions/Education Provided [facility] Heart Cath Prescriptions See Medications Section Functional [...] F (96.8 - 99.1) Temperature (Calculated Celsius) 37.86867 degrees C (36.0 - 37.3) Temperature Source [...] 2013 1:00pm 1.31 UG/L N 0-3.0 COMMENT [facility] [place] rm #[id number], RN will call Chemistry Specimen [...] 1.5 ng/mL - CKMB Mass performed at [facility] Reference Lab, [facility] [place]note 2[facility] [address] [place], [place] [address]Olfxmja Director Kishore Emerson DO Creatinine October 30, [...] 20, 2013 7:34pm LAB TEST FORM REQUEST [id number] - Large Platelets August 10, 2013 4:18am [...] 27, 2013 5:05am 1.0 % H 0-0 FP-Wwi-E-Type Natriuretic Peptide July 14, 2014 5:05pm 1530 [...] 2007 9:05pm Not Performed - Urine Specific [place] July 14, 2014 5:56pm 1.025 - Has [...] 2013 1:50pm Name: BENITO LUKE Unit #: [id number] : 1940 Sex: M Loc / Svc: SRG DOS: Signed Report #: [id number] DIAGNOSTIC IMAGING REPORT TYPE OF EXAM: CHEST [...] procedures. Encounters Encounter Location Date/Time Discharged Inpatient [facility] 10/29/14 5:40pm Recent Diagnosis Angina pectoris, unstable
--- OUTSIDE RECORDS SUMMARY | 2016-11-13 18:45 | XMS REPORT | Continuity of Care Document ---
Author Author [facility] Organization [facility] Address Unknown Phone Unavailable Allergies Active Description [...] 11/24/2012 Lloyd Valle MD Final 414.01 COR -[place] VESSEL 11/24/2012 Lloyd Valle MD Final 416.8 [...] Valle MD Final 414.01 CORONARY ATHEROSCLEROSIS OF [place] CORONARY ARTERY 03/21/2015 Lloyd Valle MD Final 427.31 ATRIAL FIBRILLATION 03/21/2015 Lloyd Valle MD Final 440.23 ATHEROSCLEROSIS OF [place] ARTERIES OF THE EXTREMITIES WITH ULCERATION 03/21/2015 [...] Status Pt. Type Provider Facility Loc./Unit Complaint [id number] 11/24/2012 06:55:00 2012 15:01:00 DIS Inpatient Lloyd Valle MD [facility] F4 [id number] 11/22/2012 16:33:00 2012 23:59:59 CLS Outpatient Wilma Pabon MD [facility] FO [id number] 05/15/2012 10:07:00 2011 14:50:00 DIS Inpatient Fredy Quintana MD [facility] [id number]
--- OUTSIDE RECORDS SUMMARY | 2016-11-13 18:45 | XMS REPORT ---
Author Author [facility] - Organization Unknown Address Unknown Phone [...] the responsibility of the patient or patient leasing representative to confirm the list of medications [...] If not please call the office at [phone] * Do not drive or ride in [...] 8:01 AMRed Blood Cells Leukoreduced ( Preliminary Result)[facility] -1 [id number] selected 11/24/12 08:01 [facility] -1 [id number] selected 11/24/12 08:01 [facility] LAB--BLOOD BANK from [...] 07:28 Site: Received : 11/24/12 07:45 Order#: [id number] Surveillance Culture FINAL 11/25/12 08:35 Positive for Methicillin Resistant Staphylococc LORENZANA FOR RESULTS: * - NEW RESULT - RESULT WAS MODIFIED AFTER FINAL STATUS SET
--- OUTSIDE RECORDS SUMMARY | 2016-11-13 18:46 | XMS REPORT | Continuity of Care Document ---
Author Author [facility] Organization [facility] Address Unknown Phone Unavailable Support Name Relationship Address Phone DEVAN ROBERTO DO Caregiver [facility] [address] [place] [address] JAMAAL SANCHEZ DO Caregiver [address] [place] [address] KIET GARRIDO DO Caregiver [facility] [address] [place] [phone] AYDIN SEBASTIAN MD Caregiver [address] [place] [address] [place] [address] LYNNETTE LUKE Next Of Kin [address] [place] [address] Insurance Providers Payer Name Policy Number Subscriber Name Relationship Medicare [id number] Benito Luke Self Other A Insurance [id number] Benito Luke Self Advance Directives Directive Response [...] or wound, Call Dr. Schofield's office at [phone]. During the evening or on the weekends: If you have questions about your care or wound, Call [facility] at [phone] and have the pneumatic systems operator page Dr. Schofield. Condition at time [...] F (96.8 - 99.1) Temperature (Calculated Celsius) 36.83966 degrees C (36.0 - 37.3) Temperature Source [...] 20, 2013 7:34pm LAB TEST FORM REQUEST [id number] - Large Platelets August 10, 2013 4:18am [...] 27, 2013 5:05am 1.0 % H 0-0 YW-Hkk-P-Type Natriuretic Peptide July 14, 2014 5:05pm 1530 [...] 2007 9:05pm Not Performed - Urine Specific [place] July 14, 2014 5:56pm 1.025 - Has [...] 2013 1:50pm Name: BENITO LUKE Unit #: [id number] : 1940 Sex: M Loc / Svc: G DOS: 07/14/14 Signed Report #: [id number] DIAGNOSTIC IMAGING REPORT TYPE OF EXAM: CHEST [...] procedures. Encounters Encounter Location Date/Time Discharged Inpatient [facility] 07/15/14 10:45am Recent Diagnosis Sepsis Gastroenteritis Dehydration Gastroenteritis Diabetes HTN (hypertension) CAD (coronary artery disease) COPD (chronic obstructive pulmonary disease) Chronic respiratory insufficiency Hypercholesteremia Encephalopathy acute Bandemia Hypotension Physical debility
--- OUTSIDE RECORDS SUMMARY | 2016-11-13 18:46 | XMS REPORT | Continuity of Care Document ---
Author Author [facility] Organization [facility] Address Unknown Phone Unavailable Support Name Relationship Address Phone KIET GARRIDO DO Caregiver [facility] [address] [facility] [facility] [facility] [address] [place] [phone] LYNNETTE LUKE Next Of Kin [address] [place], [place] [id number] Insurance Providers Payer Name Policy Number Subscriber Name Relationship Medicare [id number] Benito Luke 18 Self Advance Directives Directive [...] F (96.8 - 99.1) Temperature (Calculated Celsius) 37.00518 degrees C (36.0 - 37.3) Temperature Source [...] 1.5 ng/mL - CKMB Mass performed at [facility] Reference Lab, [facility] [place], [place] [address]Ddcyvgc Director Henderson Kuldeep W, DO Creatinine October 30, 2014 [...] 20, 2013 7:34pm LAB TEST FORM REQUEST [id number] - Large Platelets August 10, 2013 4:18am [...] 27, 2013 5:05am 1.0 % H 0-0 OH-Afp-J-Type Natriuretic Peptide July 14, 2014 5:05pm 1530 [...] 2007 9:05pm Not Performed - Urine Specific [place] July 14, 2014 5:56pm 1.025 - Has [...] 2013 1:50pm Name: BENITO LUKE Unit #: [id number] : 1940 Sex: M Loc / Svc: SRG DOS: Signed Report #: [id number] DIAGNOSTIC IMAGING REPORT TYPE OF EXAM: CHEST [...]
[2016-11-13 18:54] LABS: ANION GAP 13 MEQ/L (5-15); BUN/CREATININE RATIO 8 RATIO (6-26); CALCIUM 8.6 MG/DL (8.4-10.2); CHLORIDE 96 MEQ/L (98-107); CO2 - CARBON DIOXIDE 28 MEQ/L (22-30); CREATININE 0.9 MG/DL (0.8-1.5); GLOMERULAR FILTRATION RATE 82; GLUCOSE 116 MG/DL (75-110); POTASSIUM 4.8 MEQ/L (3.6-5); SODIUM 137 MEQ/L (134-144)
[2016-11-13] MEDS ORDERED: OMEP40CA52 PO (18:54)
--- NOTE | 2016-11-13 19:02 | NUR ---
RETURN PT RETURNED FROM XRAY BY CART AT THIS TIME.
[2016-11-13 19:04] LABS: BASOPHILS # (MANUAL) 0.1 T/MM3 (0-0.2); LYMPHOCYTES # (MANUAL) 1.7 T/MM3 (1-4.8); MONOCYTES # (MANUAL) 0.1 T/MM3 (0-0.8); NEUTROPHILS #(MANUAL)-ABSOLUTE 8.1 T/MM3 (1.8-7.7); TOTAL CELLS COUNTED 100 %
[2016-11-13 19:05] LABS: PROBNP 1260 PG/ML (0-175)
[2016-11-13] MEDS ORDERED: MORP-5 PO (19:05)
[2016-11-13] MEDS ORDERED: CARB100C8 PO (19:05)
--- NOTE | 2016-11-13 19:20 | NUR ---
RT AT BEDSIDE FOR [facility] [place].
[2016-11-13 19:23] LABS: BLOOD, URINE TRACE-INTACT (NEGATIVE); COLOR,URINE YELLOW (YELLOW); LEUKOCYTE ESTERASE ,URINE NEGATIVE (NEGATIVE); NITRITE,URINE NEGATIVE (NEGATIVE); UROBILINOGEN,URINE 0.2 EU/DL (NORMAL)
[2016-11-13 20:02] VITALS: BP 121/73; PULSE 79; RESP 20; TEMP 98.2; O2SAT 97
--- NOTE | 2016-11-13 20:02 | NUR ---
DISCHARGE WRITTEN INSTRUCTIONS REVIEWED AND SENT WITH PT AND . VERBALIZE UNDERSTANDING OF DI, DENY QUESTIONS. PT CONTINUES TO DENY PAIN AT THIS TIME. WORK OF BREATHING NO LONGER LABORED. PT EXITS ER BY W/C PER SPOUSE AT THIS TIME.
--- NOTE | 2016-11-15 10:08 | DI ---
Indication: ITS.REASON: left leg swelling PROCEDURE: US VENOUS DUPLEX, LOWER EXT LT: Encounter: Initial Comparison: July 29, 2015 Technique: Color Doppler duplex and grayscale sonographic imaging of the left lower extremity was performed. Findings: There is no evidence for acute deep venous thrombosis in the left thigh. Specifically, serial graded compression was performed from the inguinal ligament to the popliteal bifurcation, on the left thigh, demonstrating appropriate compressibility of the deep venous system. In addition, color and pulsed Doppler demonstrate appropriate spontaneous flow, variation with respiration, and augmentation with calf compression. At the ankle, normal flow is identified in the posterior tibial veins; these vessels are also normal in caliber. Impression: No evidence of acute DVT in the left lower limb. There is a preliminary report by [facility]. .
--- NOTE | 2016-11-15 10:08 | DI ---
INDICATION: ITS.REASON: dyspnea PROCEDURE: CHEST 2-VIEWS UPRIGHT (PA \T\ LAT) Encounter: Initial Comparison: May 28, 2016 Findings: The lungs are stable in appearance without new focal airspace consolidation. There is no pleural effusion or pneumothorax. The heart size, pulmonary vascularity and mediastinal contours are unchanged. IMPRESSION: Stable appearance of the chest without acute cardiopulmonary disease. .
== END 2016-11-13 20:02 | disposition home or self-care (01) ==
LOC: ED 17:47
DX: R06.89 Other abnormalities of breathing (principal); M79.89 Other specified soft tissue disorders; R19.7 Diarrhea, unspecified; J44.9 Chronic obstructive pulmonary disease, unspecified; Z99.81 Dependence on supplemental oxygen
CPT/HCPCS: 36415; 80048; 81003; 83880; 84484; 85025; 93005; 94640

== ENCOUNTER 2017-01-10 07:07 | Inpatient (IN) ==
[2017-01-10] MEDS ORDERED: ALBUTEROL/IPRATROPIUM 2.5mg-0.5mg/3ml NEB AEROSOL ONE (07:22)
--- NOTE | 2017-01-10 07:59 | Emergency Department Report ---
General Adult HPI - General Chief complaint: Shortness of Breath/Dyspnea Stated complaint: dyspnea Time Seen by Provider: 01/10/17 07:20 Source: patient, family, EMS - History of Present Illness HPI narrative: 76-year-old male presents the emergency department with a chief complaint of shortness of breath. Patient noted onset of symptoms 24 hours ago and they have gradually increased since onset. Patient denies any current pain or discomfort. Patient is chronically on 3 L of oxygen per nasal cannula. Patient has recently had all of his medications stopped for a pending surgery tomorrow morning. Patient does note a productive cough of yellow sputum. Patient states this feels typical of his COPD. Patient does note feeling improved with nebulized treatment and extra oxygen. No other complaints or associated symptoms. Patient has not been hospitalized in the past 3 months. Symptoms have been persistent in nature since onset. Patient was at home when the symptoms began. - Related Data Home Medications Medication Instructions Recorded Confirmed Albuterol Inhaler [Ventolin Hfa] 2 puff ORAL INH Q4HR 01/08/17 01/10/17 Albuterol Neb (0.5%) [Proventil 2.5 mg AEROSOL Q42H PRN 01/08/17 01/10/17 Neb (0.5%)] Arformoterol Neb [Brovana Neb] 1 unit INH BID 01/08/17 01/10/17 Aspirin 1 tab PO DAILY 01/08/17 01/10/17 Budesonide [Pulmicort] 0.5 mg IH BID 01/08/17 01/10/17 Clopidogrel Bisulfate [Clopidogrel] 1 tab PO DAILY 01/08/17 01/10/17 Dabigatran [Pradaxa] 1 tab PO DAILY 01/08/17 01/10/17 Escitalopram [Lexapro] 1 tab PO DAILY 01/08/17 01/10/17 Furosemide [Lasix] 2 tab PO DAILY 01/08/17 01/10/17 Gabapentin [Gabapentin] 300 mg PO TID 01/08/17 01/10/17 Levothyroxine Tab [Synthroid] 50 mcg PO DAILY 01/08/17 01/10/17 Metformin [Glucophage] 1 tab PO BID 01/08/17 01/10/17 Metoprolol Succinate 50 mg PO DAILY 01/08/17 01/10/17 Nitroglycerin [Nitrostat] 0.4 mg SL Q5M PRN 01/08/17 01/10/17 Omeprazole 1 cap PO HS 01/08/17 01/10/17 Oxycodone/APAP 7.5/325 [Percocet 1 tab PO Q4H 01/08/17 01/10/17 7.5/325] Potassium Chloride [K-Tab ER] 20 meq PO DAILY 01/08/17 01/10/17 Primidone [Mysoline] 100 mg PO DAILY 01/08/17 01/10/17 Simvastatin [Zocor] 10 mg PO HS 01/08/17 01/10/17 Tramadol HCl [Ultram] 50 mg PO Q4H PRN 01/08/17 01/10/17 Trazodone [Desyrel] 100 mg PO HS 01/08/17 01/10/17 predniSONE [Prednisone] 20 mg PO BID 01/08/17 01/10/17 Bumetanide Tab [Bumex] 4 mg PO DAILY 01/10/17 01/10/17 Isosorbide Mononitrate [Isosorbide 120 mg PO DAILY 01/10/17 01/10/17 Mononitrate ER] Metformin [Glucophage] 1 tab PO BIDWM 01/10/17 01/10/17 Morphine Sulfate *Sr* [Ms Contin] 15 mg PO BID 01/10/17 01/10/17 Pantoprazole Tab [Protonix Tab] 40 mg PO DAILY 01/10/17 01/10/17 Sucralfate [Carafate] 1 gm PO HS 01/10/17 01/10/17 carBAMazepine [Carbamazepine ER] 100 mg PO Q8H 01/10/17 01/10/17 Allergies Allergy/AdvReac Type Severity Reaction Status Date / Time Sulfa (Sulfonamide Allergy Unknown THROAT Verified 01/10/17 07:57 Antibiotics) SWELLED TAPE Allergy Mild RASH Uncoded 01/10/17 07:57 Review of Systems Constitutional: Denies: fever, chills Eyes: Denies: eye pain, eye discharge ENT: Denies: ear pain, throat pain Cardiovascular: Denies: chest pain, palpitations Respiratory: Reports: cough, dyspnea, wheezes Gastrointestinal: Denies: abdominal pain, nausea, vomiting, diarrhea Genitourinary: Denies: dysuria, frequency Musculoskeletal: Denies: back pain, joint swelling, arthralgia Integumentary: Denies: erythema, rash Neurological: Denies: headache, weakness, numbness Psychiatric: Denies: anxiety, depression Endocrine: Denies: heat or cold intolerance, polydipsia Hematological/Lymphatic: Denies: easy bleeding, easy bruising Allergic/Immunologic: Denies: facial swelling, urticaria PFSH Patient Stated Medical History Peripheral Neuropathy Yes Transient Ischemic Attacks ( Yes: HX OF TIA) Congestive Heart Failure Yes Coronary Artery Disease Yes Other Cardiology Yes: PVD Chronic Obstructive Pulmonary Yes Disease (COPD) Gastroesophageal Reflux Yes Disease Other GI Yes: CHRONIC INTESTINAL ISCHEMIA PER H&P Depression Yes Surgical History: Cardiac bypass surgery Family History: Coronary artery disease Smoking status: Former smoker Substance use type: does not use Alcohol intake frequency: does not drink Physical Exam - Limitations Limitations: no limitations - General General appearance: alert, other (Mild respiratory distress. ) - Normal Exams: Head:: Normocephalic without trauma Eyes:: Pupils are PERRLA w/ EOMI, No scleral icterus, irritation, or foreign bodies noted ENMT:: No facial trauma, nasal exudates, pharyngeal erythema, or exudates are noted Dental: No fractured, loose, or missing teeth noted Neck:: Full range of motion, without adenopathy, JVD, bruits or thyromegaly Chest/Respirations:: and symmetry bilaterally (Diminished throughout with scattered wheezes.) Cardiovascular:: Regular rate and rhythm, without murmur or gallop, Pulses 2+ all extremities, capillary refill, <2 seconds all extremities (2+ BLE Edema. ) Abdomen:: Bowel sounds positive, soft, non-tender, non-distended, no hepatosplenomegaly, masses or bruits noted Lymphatic:: No lymphadenopathy, or lymphedema noted Musculoskeletal:: No tenderness, or deformity noted, good range of motion, all extremities Integumentary:: No rashes, hives, or bruising noted, hair and nails, without abnormality Neurological:: Patient is alert, and oriented, cranial nerves, motor/sensory/ cerebellar, exams w/o gross deficits, to observation Psychiatric:: Patient exhibits, appropriate attention, emotion and affect Course Course Narrative: Labs / imaging were discussed in detail with the patient and family and questions are answered. Patient is given 1 L normal saline intravenously. Patient is started on Rocephin and azithromycin after blood cultures and lactic acid are obtained. Antibiotic therapy was initiated at 0839 and sepsis was considered as right lower lobe infiltrate cannot be ruled out on the chest x- ray. Patient did have a systolic blood pressure less than 89. This responded nicely to fluid bolus. Patient was not able to receive 30 cc/kg of normal saline intravenously as a bolus as he has a history of severe congestive heart failure which is currently exacerbated. Ejection fraction is unknown. Patient is already in respiratory distress and increased fluid volume will worsen the patient to the point of intubation which patient refuses to have performed on him. IV hydration as tolerated will be continued by the hospitalist Patient was given Rocephin 1 g and azithromycin 500 mg IV 1 in the emergency department. Patient was given 1 L normal saline intravenously. Patient was given Solu-Medrol 125 mg IV times one. Patient was also given a nebulized treatment upon arrival in the emergency department with improvement of symptoms. Patient is discussed with Dr. Vargas who is the hospitalist covering for . Patient was admitted to the hospital (ICU) in improved condition. Patient and family are in agreement with the current plan of management. There are no further orders from the accepting physician who is in agreement with the current plan of management. - Reevaluation(s) Reevaluation #1: Following nebulized Xopenex treatment patient is breathing easier. Patient's oxygen level is being titrated down. Patient is speaking in full sentences. Patient is feeling markedly improved. Time: 08:15 Vital Signs Temperature 98.6 F 01/10/17 07:10 Pulse Rate 135 H 01/10/17 07:10 Respiratory Rate 28 H 01/10/17 07:10 Blood Pressure 130/88 01/10/17 07:10 Pulse Oximetry 94 01/10/17 07:10 Temperature 98.6 F 01/10/17 09:30 Pulse Rate 122 H 01/10/17 09:30 Respiratory Rate 28 H 01/10/17 09:30 Blood Pressure 103/60 01/10/17 09:30 Pulse Oximetry 94 01/10/17 09:30 Medical Decision Making - [facility] Narrative Medical decision making narrative: Labs / imaging were discussed in detail with the patient and family and questions are answered. Patient is given 1 L normal saline intravenously. Patient is started on Rocephin and azithromycin after blood cultures and lactic acid are obtained. Antibiotic therapy was initiated at 0839 and sepsis was considered as right lower lobe infiltrate cannot be ruled out on the chest x- ray. Patient did have a systolic blood pressure less than 89. This responded nicely to fluid bolus. Patient was not able to receive 30 cc/kg of normal saline intravenously as a bolus as he has a history of severe congestive heart failure which is currently exacerbated. Ejection fraction is unknown. Patient is already in respiratory distress and increased fluid volume will worsen the patient to the point of intubation which patient refuses to have performed on him. IV hydration as tolerated will be continued by the hospitalist Patient was given Rocephin 1 g and azithromycin 500 mg IV 1 in the emergency department. Patient was given 1 L normal saline intravenously. Patient was given Solu-Medrol 125 mg IV times one. Patient was also given a nebulized treatment upon arrival in the emergency department with improvement of symptoms. Patient is discussed with Dr. Vargas who is the hospitalist covering for . Patient was admitted to the hospital (ICU) in improved condition. Patient and family are in agreement with the current plan of management. There are no further orders from the accepting physician who is in agreement with the current plan of management. Due to the transient hypotension diuresis of the patient will be left to the hospitalist. Patient takes daily full dose aspirin/Plavix and is currently on Pradaxa which are continued by the hospitalist in the ED for the patient. - Differential Diagnosis pneumonia, CHF, COPD exacerbation, tachycardia - Lab Data Result diagrams: 01/10/17 07:36 01/10/17 07:36 Lab Results 01/10/17 01/10/17 01/10/17 Range/Units 07:36 07:36 07:56 WBC 19.9 H (4.5-11.0) T/MM3 RBC 4.18 L (4.50-5.90) M/MM3 Hgb 11.3 L (13.5-17.5) GM/DL Hct 34.9 L (41-53) % MCV 83.5 (80-100) UM3 MCH 27.0 (26-34) UUG MCHC 32.4 (31-37) GM/DL RDW Std Deviation 44.8 (36.9-50.2) FL Plt Count 470 H (130-400) T/MM3 MPV 8.7 L (9.4-12.4) UM3 Immature Gran % (Auto) Not performed Neut % (Auto) Not performed Lymph % (Auto) Not performed Bradley % (Auto) Not performed Eos % (Auto) Not performed Baso % (Auto) Not performed Neut # Not performed Lymph # Not performed Bradley # Not performed Baso # Not performed Abs Immat Gran (auto) Not performed Neutrophils % (Manual) 83.0 H (33-66) % Band Neutrophils % 4.0 (0-6) % Lymphocytes % (Manual) 12.0 L (23-45) % Monocytes % (Manual) 1.0 (0-9.0) % Neutrophils # (Manual) 16.5 H (1.8-7.7) T/MM3 Band Neutrophils # 0.8 T/MM3 Lymphocytes # (Manual) 2.4 (1-4.8) T/MM3 Monocytes # (Manual) 0.2 (0-0.8) T/MM3 RBC Morph Comment Normal Turbidity 20 (0-20) Sodium 140 (134-144) MEQ/L Potassium 4.2 (3.6-5) MEQ/L Chloride 97 L (98-107) MEQ/L Carbon Dioxide 30 (22-30) MEQ/L Anion Gap 13 (5-15) MEQ/L BUN 11.0 (9-20) MG/DL Creatinine 0.9 (0.8-1.5) MG/DL GFR Calculation 82 BUN/Creatinine Ratio 12 (6-26) RATIO Glucose 99 (75-110) MG/DL Calculated Osmolality 268 (261-280) MOSM/KG Calcium 8.4 (8.4-10.2) MG/DL Total Bilirubin 0.40 (0.20-1.30) MG/DL Icterus Index 2 (0-7) AST 19 (17-59) U/L ALT 27 (21-72) U/L Alkaline Phosphatase 84 (38-126) U/L Troponin I < 0.012 (0-0.12) ng/ml B-Natriuretic Peptide 854 H (0-175) pg/mL Total Protein 6.5 (6.3-8.2) G/DL Albumin 3.8 (3.5-5.0) G/DL Globulin 2.7 (2.4-3.6) G/DL Albumin/Globulin Ratio 1.4 (1.1-2.2) RATIO Plasma Lactate 2.7 H (0.6-2.2) MMOL/L Procalcitonin NG/ML Specimen Hemolysis 60 H (0-25) 01/10/17 Range/Units 07:56 WBC (4.5-11.0) T/MM3 RBC (4.50-5.90) M/MM3 Hgb (13.5-17.5) GM/DL Hct (41-53) % MCV (80-100) UM3 MCH (26-34) UUG MCHC (31-37) GM/DL RDW Std Deviation (36.9-50.2) FL Plt Count (130-400) T/MM3 MPV (9.4-12.4) UM3 Immature Gran % (Auto) Neut % (Auto) Lymph % (Auto) Bradley % (Auto) Eos % (Auto) Baso % (Auto) Neut # Lymph # Bradley # Baso # Abs Immat Gran (auto) Neutrophils % (Manual) (33-66) % Band Neutrophils % (0-6) % Lymphocytes % (Manual) (23-45) % Monocytes % (Manual) (0-9.0) % Neutrophils # (Manual) (1.8-7.7) T/MM3 Band Neutrophils # T/MM3 Lymphocytes # (Manual) (1-4.8) T/MM3 Monocytes # (Manual) (0-0.8) T/MM3 RBC Morph Comment Turbidity (0-20) Sodium (134-144) MEQ/L Potassium (3.6-5) MEQ/L Chloride (98-107) MEQ/L Carbon Dioxide (22-30) MEQ/L Anion Gap (5-15) MEQ/L BUN (9-20) MG/DL Creatinine (0.8-1.5) MG/DL GFR Calculation BUN/Creatinine Ratio (6-26) RATIO Glucose (75-110) MG/DL Calculated Osmolality (261-280) MOSM/KG Calcium (8.4-10.2) MG/DL Total Bilirubin (0.20-1.30) MG/DL Icterus Index (0-7) AST (17-59) U/L ALT (21-72) U/L Alkaline Phosphatase (38-126) U/L Troponin I (0-0.12) ng/ml B-Natriuretic Peptide (0-175) pg/mL Total Protein (6.3-8.2) G/DL Albumin (3.5-5.0) G/DL Globulin (2.4-3.6) G/DL Albumin/Globulin Ratio (1.1-2.2) RATIO Plasma Lactate (0.6-2.2) MMOL/L Procalcitonin < 0.05 NG/ML Specimen Hemolysis (0-25) - Radiology Data CXR - pulmonary edema with right basilar infiltrate - EKG Data EKG #1 EKG results narrative: EKG #1 -Sinus tachycardia. [address] changes. No STEMI. EKG #2 - Sinus tachycardia. 113 bpm. No STEMI. Critical Care Time Critical Care Time: Yes Total Critical Care Time: 47 Attestation: Patient required complex medical decision-making, repeated assessment at bedside , and had the potential for decompensation. 47 minutes of critical care time was spent treating the patient, documenting the medical record, reviewing labs/ imaging and discussing the patient's care with the family. Patient was admitted to the ICU for further evaluation and treatment. Heart rate of 151 bpm upon arrival to the was noted. Disposition Clinical Impression: SEVERE SEPSIS, Community acquired pneumonia, Acute exacerbation of chronic obstructive airways disease Congestive heart failure Qualifiers: Congestive heart failure type: unspecified congestive heart failure type Congestive heart failure chronicity: acute on chronic Qualified Code(s): I50.9 - Heart failure, unspecified Disposition: 02 To [facility] [place] Acute Care Condition: Improved Time of Disposition: 08:15 (Admit: [place]) - Seen By: physician
[2017-01-10] MEDS ORDERED: AZITHROMYCIN IV 500 MG in NS 250ml 250 ML IV ONE (08:01)
[2017-01-10] MEDS ORDERED: CEFTRIAXONE 1 G in NS 100 ML IV ONE (08:01)
--- NOTE | 2017-01-10 08:52 | XRay Report ---
Indication: sob PROCEDURE: XR chest 1V: Encounter: Initial Comparison: November 13, 2016 Findings: New bilateral areas of airspace consolidation in the lower lobes with patchy increased interstitial prominence and linear scarring or atelectasis in the right upper lobe. No pneumothorax. Cardiac silhouette is stable. Poststernotomy changes. Mediastinal contours are stable. Pulmonary vascularity is indistinct. Impression: Moderate to severe pulmonary edema. Possible superimposed right lower lobe pneumonia or aspiration. .
[2017-01-10] MEDS ORDERED: METHYLPREDNISOLONE SOD SUCC 125mg/2ml INJECTION IVP ONE ×2 (09:05→10:15)
[2017-01-10] MEDS ORDERED: NS 500 ML IV ONE ×2 (09:13→11:15)
[2017-01-10] MEDS: CEFEPIME 1 GM in NS 100 ML IV SCH ×3 (10:15→21:59)
[2017-01-10] MEDS ORDERED: NS 500 ML IV SCH (10:20)
[2017-01-10] MEDS ORDERED: ALBUTEROL 2.5mg/0.5ml (0.5%) NEB AEROSOL PRN ×2 (10:23→13:24)
--- NOTE | 2017-01-10 10:37 | History & Physical Report ---
History of Present Illness Date: HPI: is a 76 y.o. male with PMH significant for Afib, CHF, HTN, CAD, COPD and DM who presents with increased dyspnea, cough and sputum production. Pt has had these sx's in the last week but mostly in the morning and then it improves throughout the day but today the sx's didn't improve so he came in the ED. Reports some chills as well. Denies any fevers, cp, n/v/d. Sputum is yellowish color and both cough and sputum is worse then baseline. Denies sick contacts or recent travel. Denies any recent use of abx. Does take prednisone daily for COPD ?. LE swelling is not worse then usual per pt and . Pt does have rash on left lower ext which reports as new. Review of Systems Review of systems: 10 point ros negative other than what is noted in HPI PFSH AFib DM HTN CAD CHF COPD Seizure? Surgical History: Cardiac bypass surgery Family History: Reviewed Smoking status: Former smoker Current residence: Apartment/Private Home Social history: Former smoker Medications Home Medications Medication Instructions Recorded Confirmed Type Albuterol Inhaler [Ventolin Hfa] 2 puff ORAL INH Q4HR 01/08/17 01/10/17 History Albuterol Neb (0.5%) [Proventil 2.5 mg AEROSOL Q42H PRN 01/08/17 01/10/17 History Neb (0.5%)] Arformoterol Neb [Brovana Neb] 1 unit INH BID 01/08/17 01/10/17 History Aspirin 1 tab PO DAILY 01/08/17 01/10/17 History Budesonide [Pulmicort] 0.5 mg IH BID 01/08/17 01/10/17 History Clopidogrel Bisulfate [Clopidogrel] 1 tab PO DAILY 01/08/17 01/10/17 History Dabigatran [Pradaxa] 1 tab PO DAILY 01/08/17 01/10/17 History Escitalopram [Lexapro] 1 tab PO DAILY 01/08/17 01/10/17 History Furosemide [Lasix] 2 tab PO DAILY 01/08/17 01/10/17 History Gabapentin 300 mg PO TID 01/08/17 01/10/17 History Levothyroxine Tab [Synthroid] 50 mcg PO DAILY 01/08/17 01/10/17 History Metformin [Glucophage] 1 tab PO BID 01/08/17 01/10/17 History Metoprolol Succinate 50 mg PO DAILY 01/08/17 01/10/17 History Nitroglycerin [Nitrostat] 0.4 mg SL Q5M PRN 01/08/17 01/10/17 History Omeprazole 1 cap PO HS 01/08/17 01/10/17 History Oxycodone/APAP 7.5/325 [Percocet 1 tab PO Q4H 01/08/17 01/10/17 History 7.5/325] Potassium Chloride [K-Tab ER] 20 meq PO DAILY 01/08/17 01/10/17 History Primidone [Mysoline] 100 mg PO DAILY 01/08/17 01/10/17 History Simvastatin [Zocor] 10 mg PO HS 01/08/17 01/10/17 History Tramadol HCl [Ultram] 50 mg PO Q4H PRN 01/08/17 01/10/17 History Trazodone [Desyrel] 100 mg PO HS 01/08/17 01/10/17 History predniSONE [Prednisone] 20 mg PO BID 01/08/17 01/10/17 History Bumetanide Tab [Bumex] 4 mg PO DAILY 01/10/17 01/10/17 History Isosorbide Mononitrate [Isosorbide 120 mg PO DAILY 01/10/17 01/10/17 History Mononitrate ER] Metformin [Glucophage] 1 tab PO BIDWM 01/10/17 01/10/17 History Morphine Sulfate *Sr* [Ms Contin] 15 mg PO BID 01/10/17 01/10/17 History Pantoprazole Tab [Protonix Tab] 40 mg PO DAILY 01/10/17 01/10/17 History Sucralfate [Carafate] 1 gm PO HS 01/10/17 01/10/17 History carBAMazepine [Carbamazepine ER] 100 mg PO Q8H 01/10/17 01/10/17 History Allergies Allergy/AdvReac Type Severity Reaction Status Date / Time Sulfa (Sulfonamide Allergy Unknown THROAT Verified 01/10/17 07:57 Antibiotics) SWELLED TAPE Allergy Mild RASH Uncoded 01/10/17 07:57 Exam Vital Signs: Temp Pulse Resp BP Pulse Ox 98.6 F 122 H 28 H 103/60 94 01/10/17 09:30 01/10/17 09:30 01/10/17 09:30 01/10/17 09:30 01/10/17 09:30 Height: 1.8 m Weight: 87 kg - Constitutional Present: mild distress, cooperative - Routine HEENT Exam Head: Present: normocephalic, atraumatic Eye: Present: EOMI. Absent: conjunctival icterus ENT: Present: mucous membranes dry. Absent: sinus tenderness - Routine Neck Exam Absent: swelling, trauma - Routine Respiratory Exam Present: wheezes (diffuse), diminished air movement - Routine Cardiovascular Exam Present: RRR. Absent: murmur - Routine Abdominal Exam Present: soft, non distended, non tender - Routine Extremities Exam Present: edema (2+ pitting in LE). Absent: cyanosis, clubbing - Routine Skin Exam Present: erythema, warm (LLE erythematous rash). Absent: cyanosis - Routine Neurological Exam Present: alert, oriented X3 Results - Labs CBC & Chem 7: 01/10/17 07:36 01/10/17 07:36 Assessment and Plan (1) Severe sepsis Current visit: Yes Status: Acute (2) Community acquired pneumonia Current visit: Yes Status: Acute (3) Afib Current visit: Yes Status: Chronic (4) HTN (hypertension) Current visit: Yes Status: Chronic (5) Diabetes Current visit: Yes Status: Chronic (6) Acute exacerbation of chronic obstructive airways disease Current visit: Yes Status: Acute (7) Congestive heart failure Current visit: Yes Status: Acute Assessment and Plan: Severe Sepsis 2/2 CAP -WBC 20K, tachypnea, tachycardia, LA 2.7 -possible septic shock as pt is hypotensive but has not yet received 30ml/kg fluid bolus d/t pulm edema and CHF exacerbation -CXR shows pulm edema and RLL infiltrate -Will continually re-evaluate after each 500ml bolus, currently on bag #3 of 500ml bolus -Will do broad abx coverage d/t severity of illness, risk of resistant organisms and psuedomonas risk d/t DM, chronic steroid use and COPD hx -Order-->Blood and sputum GS/Cx's, Legionella/strep Urine ag, Viral panel, procal -Tx-->IV fluids, Vanc & Cefepime COPD Exacerbation 2/2 CAP -Tx for CAP per above -RCAT, Solumedrol 60mg q8H -Cont. home pulmicort, formeterol HFpEF Exacerbation -Last cath in 09/2016 showed EF 65%, no comment on diastolic function -CXR shows pulm edema, BNP 854, trop neg x1, Order echo -D/t hypotension, will hold lasix and BB -Monitor daily weights, I/O's, careful fluid administration, cardiac diet Acute on Chronic Hypoxic Respiratory Failure -09/10 to above, on 4L O2 at home chronically -Tx for COPD, HFpEF per above Chronic Steroid Use -Pt reports 10-20mg prednisone daily at home (for COPD?) -Will need stress dosing d/t likely axis suppression -Solumedrol 60mg Q8H, s/p 125mg one time dose in ED -May help with COPD and PNA CAD -S/p CABG -Cont. home ASA, plavix and dabigatran Afib -Chronic, CHADVASC 6 -On Dabigatran DM -On Metformin at home, will hold -SSI, ACHS checks, order a1c Hypothyroid -Cont. home levothyroxine Seizure Hx? -Family not completely sure -Cont. home carbamazepine and primidone for now Depresion -Cont. home lexapro Neuropathy -Cont. home gabapentin Ppx -DVT-on dabigatran -GI-On home PPI Hospital Course Summary Disclaimer: The visit summary below is not to be considered part of the above Progress Note.
[2017-01-10 10:39] VITALS: BMI 26.7
[2017-01-10] MEDS: ARFORMOTEROL NEB 15mcg/2ml IH SCH ×2 (11:30→22:52)
[2017-01-10] MEDS: BUDESONIDE INH.SOLN 0.5mg/2ml NEB IH SCH ×2 (11:30→20:41)
[2017-01-10] MEDS: CarBAMazepine 200 MG TABLET PO SCH ×2 (13:39→18:14)
[2017-01-10] MEDS: OXYCODONE/APAP 7.5 MG/325 MG TABLET PO SCH ×4 (13:39→22:41)
[2017-01-10] MEDS: GABAPENTIN 300 MG CAPSULE PO SCH ×2 (15:30→21:44)
[2017-01-10] MEDS: ALBUTEROL/IPRATROPIUM 2.5mg-0.5mg/3ml NEB IH SCH ×2 (15:39→20:42)
[2017-01-10] MEDS: METHYLPREDNISOLONE SOD SUCC 125mg/2ml INJECTION IVP SCH (17:35)
[2017-01-10] MEDS ORDERED: ARFORMOTEROL NEB 15mcg/2ml IH SCH (21:00)
[2017-01-10] MEDS ORDERED: BUDESONIDE INH.SOLN 0.5mg/2ml NEB IH SCH (21:00)
[2017-01-10] MEDS: SUCRALFATE 1 GM TABLET PO SCH (21:44)
[2017-01-10] MEDS: INSULIN ASPART 100unit/ml INJECTION SQ PRN (23:46)
[2017-01-11] MEDS: METHYLPREDNISOLONE SOD SUCC 125mg/2ml INJECTION IVP SCH ×3 (01:19→20:58)
[2017-01-11] MEDS: OXYCODONE/APAP 7.5 MG/325 MG TABLET PO SCH ×6 (02:31→22:32)
[2017-01-11] MEDS: CarBAMazepine 200 MG TABLET PO SCH ×3 (02:31→18:22)
[2017-01-11] MEDS: CEFEPIME 1 GM in NS 100 ML IV SCH ×4 (04:09→20:59)
[2017-01-11] MEDS: INSULIN ASPART 100unit/ml INJECTION SQ PRN ×3 (06:31→18:18)
[2017-01-11] MEDS: ALBUTEROL/IPRATROPIUM 2.5mg-0.5mg/3ml NEB IH SCH ×4 (06:51→20:02)
[2017-01-11] MEDS: BUDESONIDE INH.SOLN 0.5mg/2ml NEB IH SCH ×2 (06:54→20:02)
[2017-01-11] MEDS ORDERED: PredniSONE 20 MG TABLET PO SCH (08:00)
--- NOTE | 2017-01-11 08:41 | XRay Report ---
EXAM: XR chest 1V LOCATION OF DICTATION: [place] HISTORY: sepsis, pna COMPARISON: Compared to one day earlier. FINDINGS: The heart is mildly enlarged. Postsurgical changes of median sternotomy. There is improved aeration within the bilateral lungs with decreasing basilar airspace opacities slightly worse in the right. There are no pleural effusions. There is no pneumothorax. The osseous structures are within normal limits for the patient's age. IMPRESSION: 1. Improved aeration within the bilateral lungs with decreasing basilar airspace opacities, slightly worse on the right. 2. Post surgical changes of median sternotomy. Heart is mildly enlarged without evidence for overt CHF. .
[2017-01-11] MEDS: ASPIRIN 325 MG TABLET PO SCH (09:02)
[2017-01-11] MEDS: CLOPIDOGREL 75 MG TABLET PO SCH (09:02)
[2017-01-11] MEDS: LEVOTHYROXINE 50 MCG TABLET PO SCH (09:02)
[2017-01-11] MEDS: GABAPENTIN 300 MG CAPSULE PO SCH ×3 (09:02→21:01)
[2017-01-11] MEDS: ESCITALOPRAM 20 MG TABLET PO SCH (09:03)
[2017-01-11] MEDS: PRIMIDONE 50 MG TABLET PO SCH (09:05)
[2017-01-11] MEDS: ARFORMOTEROL NEB 15mcg/2ml IH SCH ×2 (10:30→20:02)
[2017-01-11] MEDS ORDERED: GI COCKTAIL 30 ML PO ONE (10:45)
--- NOTE | 2017-01-11 13:31 | Internal Med Progress Note ---
Internal Medicine Subjective Patient seen and examined in the ICU. Family at bedside. Questions answered. Benito states that he is feeling better today than yesterday. His breathing is easier and he doesn't feel as weak. He denies chest pain. He still has cough and is requiring more oxygen than usual. His chart, labs, radiographs, and notes from admission were reviewed. He did complain of significant reflux which was markedly better after a GI cocktail. Exam Vital Signs: Temp Pulse Resp BP Pulse Ox 97.6 F 91 11 154/77 H 93 01/11/17 12:00 01/11/17 13:00 01/11/17 13:00 01/11/17 13:00 01/11/17 13:00 Telemetry Rhythm: Sinus Rhythm Height: 5 ft 11 in Weight: 87.9 kg Body Mass Index: 26.7 - Constitutional Present: mild distress, cooperative - Routine HEENT Exam Head: Present: normocephalic, atraumatic. Absent: facial swelling Eye: Present: EOMI, PERRL, conjunctivae pink. Absent: conjunctival icterus, scleral injection ENT: Present: mucous membranes moist, oropharynx clear, nares patent - Routine Neck Exam Present: supple, full ROM. Absent: JVD, carotid bruit, lymphadenopathy, thyromegaly - Routine Chest/Breast/Axilla Exam Chest wall: Absent: tenderness, pacemaker Axillae: Absent: lymphadenopathy, mass, tenderness - Routine Respiratory Exam Present: accessory muscle use, decreased breath sounds, prolonged expiratory phase, wheezes (on the right), distant breath sounds - Routine Cardiovascular Exam Present: RRR, no murmur. Absent: tachycardia Comments: Occasional ectopy - Routine Abdominal Exam Present: soft, normoactive bowel sounds, distended (mild). Absent: tenderness, rebound, guarding - Routine Rectal Exam Patient deferred: digital exam - Routine Exam Penile: Absent: swelling, lesions Scrotal: Absent: swelling, tenderness - Routine Back/Spine/Pelvis Exam Back/Spine: Absent: CVA tenderness, vertebral tenderness - Routine Skin Exam Present: intact, dry. Absent: lesions - Routine Neurological Exam Present: alert, oriented X3, CN II-XII intact, moving all extremities. Absent: altered mental status, nystagmus - Routine Psychiatric Exam Present: normal affect, normal thought process, cooperative, good insight, good judgment. Absent: agitated Internal Medicine Results - Labs CBC & Chem 7: 01/11/17 04:34 01/11/17 04:34 Labs: Short CBC 01/11/17 Range/Units 04:34 WBC 24.9 H (4.5-11.0) T/MM3 Hgb 10.1 L (13.5-17.5) GM/DL Hct 31.3 L (41-53) % Plt Count 376 (130-400) T/MM3 BMP 01/11/17 04:34 Sodium 138 Potassium 4.0 Chloride 102 Carbon Dioxide 27 BUN 15.0 Creatinine 0.8 Glucose 136 H Calcium 8.3 L Cardiac Enzymes 01/10/17 Range/Units 14:03 Troponin I 0.051 D (0-0.12) ng/ml Liver Function 01/11/17 Range/Units 04:34 Total Bilirubin 0.40 (0.20-1.30) MG/DL AST 12 L (17-59) U/L ALT 31 (21-72) U/L Alkaline Phosphatase 69 (38-126) U/L Albumin 3.1 L (3.5-5.0) G/DL - ABG Interpretation ABG results: 01/10/17 10:20 ABG pH 7.460 H ABG pCO2 43 ABG pO2 57 L ABG HCO3 31 H ABG Total CO2 31.9 H ABG O2 Saturation 91.0 L ABG Base Excess 6.1 H - Impressions Chest x-ray reviewed and improved Progress Note-A&P (1) Acute exacerbation of chronic obstructive airways disease Status: Acute Current Visit: Yes (2) Community acquired pneumonia Status: Acute Current Visit: Yes (3) Congestive heart failure Status: Chronic Current Visit: Yes (4) Severe sepsis Status: Acute Current Visit: Yes (5) Afib Status: Chronic Current Visit: Yes (6) Diabetes Status: Chronic Current Visit: Yes (7) HTN (hypertension) Status: Chronic Current Visit: Yes - Time Spent With Patient Total time spent is greater than 50% in coordination of care (as documented) at patient's floor/unit and/or counseling patient: 25 - 35 minutes Sepsis Assessment - Evaluation Sepsis screening result: Severe Sepsis Risk - Focused Exam Vital Signs Temp Pulse Resp BP Pulse Ox 01/11/17 13:00 91 11 154/77 H 93 01/11/17 12:00 97.6 F 92 15 132/63 93 01/11/17 11:56 12 93 01/11/17 11:01 83 14 94 01/11/17 11:00 168/80 H 01/11/17 10:30 16 01/11/17 10:01 145/77 H 01/11/17 10:00 90 27 H 93 01/11/17 09:00 92 16 143/67 H 92 01/11/17 08:00 97.5 F 150/71 H 01/11/17 07:53 89 01/11/17 07:45 165/77 H 01/11/17 07:30 150/73 H 01/11/17 07:15 143/71 H 01/11/17 07:08 94 01/11/17 07:00 20 144/69 H 94 01/11/17 06:59 20 94 01/11/17 06:45 147/69 H 01/11/17 06:31 181/93 H 01/11/17 06:30 100 52 H 91 01/11/17 06:15 140/70 H 01/11/17 06:00 144/70 H 01/11/17 05:45 146/71 H 01/11/17 05:30 147/70 H 01/11/17 05:15 150/74 H 01/11/17 05:00 142/68 H 01/11/17 04:45 137/68 01/11/17 04:30 139/69 01/11/17 04:15 140/71 H 01/11/17 04:00 97.9 F 73 13 129/65 95 01/11/17 03:45 134/68 01/11/17 03:30 130/67 01/11/17 03:15 127/63 01/11/17 03:00 131/67 01/11/17 02:00 124/58 01/11/17 01:30 133/63 Respiratory exam: Present: wheezes (diffuse), diminished air movement Cardiovascular exam: Present: RRR. Absent: murmur Capillary refill: < 2-3 Seconds Hospital Course Summary Disclaimer: The visit summary below is not to be considered part of the above Progress Note. Hospital Course: 01/11/17 13:35 Patient admitted with acute exacerbation of COPD. He was started on steroids and antibiotics and given IV fluids for sepsis. He is improving. If he continues to improve overnight I will transfer him to the medical floor tomorrow morning.
[2017-01-11] MEDS: MAG-AL + SIM ORAL LIQUID 30ml PO PRN ×3 (14:01→20:58)
[2017-01-11] MEDS: SUCRALFATE 1 GM TABLET PO SCH (20:59)
[2017-01-11] MEDS: SALINE FLUSH 10ml SYRINGE IVF PRN (23:27)
[2017-01-12] MEDS: CarBAMazepine 200 MG TABLET PO SCH ×3 (03:18→18:47)
[2017-01-12] MEDS: OXYCODONE/APAP 7.5 MG/325 MG TABLET PO SCH ×6 (03:18→22:51)
[2017-01-12] MEDS: CEFEPIME 1 GM in NS 100 ML IV SCH ×4 (03:56→21:19)
[2017-01-12] MEDS: MAG-AL + SIM ORAL LIQUID 30ml PO PRN ×4 (05:57→21:22)
[2017-01-12] MEDS: LEVOTHYROXINE 50 MCG TABLET PO SCH (06:06)
[2017-01-12] MEDS: BUDESONIDE INH.SOLN 0.5mg/2ml NEB IH SCH ×2 (06:51→19:16)
[2017-01-12] MEDS: ALBUTEROL/IPRATROPIUM 2.5mg-0.5mg/3ml NEB IH SCH ×4 (06:51→19:17)
--- NOTE | 2017-01-12 07:58 | XRay Report ---
Indication: AECOPD PROCEDURE: XR chest 1V: Encounter: Initial Comparison: January 11, 2017 and January 10, 2017 Findings: Stable bilateral lower lobe areas of airspace consolidation with worsening airspace disease in the right upper lobe. Small pleural effusions. No pneumothorax. Heart size and mediastinal contours are stable. Pulmonary vascularity is unchanged. Impression: Worsening right upper lobe airspace disease. .
--- NOTE | 2017-01-12 08:19 | Echocardiogram ---
DATE OF PROCEDURE January 11, [address] Regina Vargas This is a two-dimensional echo with spectral Doppler, color-flow and M-mode. It was obtained in a patient with sepsis and shortness of breath. This is a technically difficult study. Left atrium is dilated. Left ventricle end-diastolic dimension is normal. Left ventricle wall thickness is increased. LV systolic function is normal with ejection fraction of about 55-60%. Right atrium is dilated. Right ventricle is normal. Aortic root dimension is normal. Mitral valve is morphologically normal with mild mitral regurgitation. Aortic valve was not visualized well, but Doppler studies indicate no stenosis or insufficiency. Tricuspid valve shows mild tricuspid regurgitation with moderate pulmonary hypertension with estimated pulmonary artery systolic pressure of 47. Pulmonary valve was not visualized. There is no pericardial effusion. IMPRESSION 1. Technically difficult study. 2. Normal LV systolic function with ejection fraction of 55-60%. 3. Biatrial dilation. 4. Left ventricle hypertrophy. 5. Mild mitral regurgitation. 6. Mild tricuspid regurgitation with moderate pulmonary hypertension with estimated pulmonary artery systolic pressure of 47. MTDD
[2017-01-12] MEDS: ASPIRIN 325 MG TABLET PO SCH (09:10)
[2017-01-12] MEDS: ESCITALOPRAM 20 MG TABLET PO SCH (09:12)
[2017-01-12] MEDS: CLOPIDOGREL 75 MG TABLET PO SCH (09:16)
[2017-01-12] MEDS: GABAPENTIN 300 MG CAPSULE PO SCH ×3 (09:16→21:21)
[2017-01-12] MEDS: METHYLPREDNISOLONE SOD SUCC 125mg/2ml INJECTION IVP SCH ×2 (09:17→21:21)
[2017-01-12] MEDS: SALINE FLUSH 10ml SYRINGE IVF PRN ×2 (09:22→23:26)
[2017-01-12] MEDS: PRIMIDONE 50 MG TABLET PO SCH (09:23)
[2017-01-12] MEDS: ARFORMOTEROL NEB 15mcg/2ml IH SCH ×2 (12:58→19:30)
--- NOTE | 2017-01-12 13:42 | Internal Med Progress Note ---
Internal Medicine Subjective Patient seen and examined in the ICU. Family at bedside. Questions answered. Up to a chair and appears to be breathing somewhat better than yesterday. He was again denies chest pain. He did say that he was quite short of breath when transferring from the bed to the chair. He seemed to sleep fairly well last night and ate breakfast and lunch. Exam Vital Signs: Temp Pulse Resp BP Pulse Ox 98.3 F 82 19 165/77 H 96 01/12/17 04:35 01/12/17 04:35 01/12/17 12:50 01/12/17 04:35 01/12/17 12:50 Telemetry Rhythm: Sinus Rhythm Height: 5 ft 11 in Weight: 89.9 kg Body Mass Index: 26.7 - Constitutional Present: no acute distress, mild distress, obese, cooperative - Routine HEENT Exam Head: Present: normocephalic, atraumatic, cushingoid faces Eye: Present: EOMI, PERRL, conjunctivae pink. Absent: conjunctival icterus, scleral injection ENT: Present: mucous membranes moist, oropharynx clear, nares patent - Routine Neck Exam Present: supple, full ROM. Absent: JVD, carotid bruit, lymphadenopathy, thyromegaly - Routine Chest/Breast/Axilla Exam Chest wall: Absent: tenderness, pacemaker - Routine Respiratory Exam Present: prolonged expiratory phase, rhonchi (scattered in the upper lobes). Absent: accessory muscle use, rales, respiratory distress, stridor, wheezes - Routine Cardiovascular Exam Present: RRR, no murmur. Absent: S3, S4 - Routine Abdominal Exam Present: normoactive bowel sounds, distended. Absent: tenderness - Routine Extremities Exam Present: edema. Absent: cyanosis, clubbing - Routine Back/Spine/Pelvis Exam Back/Spine: Absent: paraspinal tenderness, vertebral tenderness, muscle spasm - Routine Skin Exam Present: intact, ecchymosis. Absent: cyanosis, mottling, petechiae - Routine Neurological Exam Present: alert, oriented X3. Absent: sensory deficit, motor deficit, altered mental status Internal Medicine Results - Labs CBC & Chem 7: 01/12/17 04:50 01/12/17 11:00 Labs: Short CBC 01/12/17 Range/Units 04:50 WBC 20.0 H (4.5-11.0) T/MM3 Hgb 9.5 L (13.5-17.5) GM/DL Hct 29.7 L (41-53) % Plt Count 368 (130-400) T/MM3 BMP 01/12/17 01/12/17 04:50 11:00 Sodium 136 Potassium 4.9 D Chloride 100 Carbon Dioxide 28 BUN 17.0 Creatinine 0.8 0.8 Glucose 131 H Calcium 8.4 Liver Function 01/12/17 Range/Units 04:50 Total Bilirubin 0.20 (0.20-1.30) MG/DL AST 11 L (17-59) U/L ALT 28 (21-72) U/L Alkaline Phosphatase 64 (38-126) U/L Albumin 3.1 L (3.5-5.0) G/DL - ABG Interpretation ABG results: 01/10/17 10:20 ABG pH 7.460 H ABG pCO2 43 ABG pO2 57 L ABG HCO3 31 H ABG Total CO2 31.9 H ABG O2 Saturation 91.0 L ABG Base Excess 6.1 H Progress Note-A&P (1) Acute exacerbation of chronic obstructive airways disease Status: Acute Current Visit: Yes (2) Community acquired pneumonia Problem details: Right upper lobe Status: Acute Current Visit: Yes (3) Congestive heart failure Status: Chronic Current Visit: Yes (4) Severe sepsis Status: Acute Current Visit: Yes (5) Afib Status: Chronic Current Visit: Yes (6) Diabetes Status: Chronic Current Visit: Yes (7) HTN (hypertension) Status: Chronic Current Visit: Yes - Time Spent With Patient Total time spent is greater than 50% in coordination of care (as documented) at patient's floor/unit and/or counseling patient: 25 - 35 minutes Sepsis Assessment - Evaluation Sepsis screening result: No Definite Risk - Focused Exam Vital Signs Temp Pulse Resp BP Pulse Ox 01/12/17 12:50 19 96 01/12/17 11:10 15 98 01/12/17 06:45 19 97 01/12/17 04:35 98.3 F 82 12 165/77 H 95 01/12/17 04:00 82 01/12/17 03:08 188/97 H 01/12/17 03:07 16 96 01/12/17 03:01 243/137 H 01/12/17 03:00 104 H 18 92 01/12/17 02:54 163/90 H 01/12/17 02:00 183/97 H Respiratory exam: Present: wheezes (diffuse), diminished air movement Cardiovascular exam: Present: RRR. Absent: murmur Capillary refill: < 2-3 Seconds Hospital Course Summary Disclaimer: The visit summary below is not to be considered part of the above Progress Note. Hospital Course: 01/11/17 13:35 Patient admitted with acute exacerbation of COPD. He was started on steroids and antibiotics and given IV fluids for sepsis. He is improving. If he continues to improve overnight I will transfer him to the medical floor tomorrow morning. 01/12/17 13:45 Patient appears improved. He is still short of breath. Chest x-ray appears somewhat worsened from yesterday. He is stable to transfer to the regular medical floor and so I will do so.
--- NOTE | 2017-01-12 17:14 | Pharmacy Consult-Antibiotics ---
Pharmacy Consult-Vancomycin - Laboratory Information WBC 20.0 T/MM3 (4.5-11.0) H 01/12/17 04:50 BUN 17.0 MG/DL (9-20) 01/12/17 04:50 Creatinine 0.8 MG/DL (0.8-1.5) 01/12/17 11:00 Procalcitonin < 0.05 NG/ML 01/10/17 07:56 Vancomycin Trough 15.30 UG/ML (15-20) 01/12/17 11:00 - Consult Information VANCOMYCIN CONSULT: DAY 3 76 y.o. Male on Cefepime and Vancomycin per pharmacy protocol empirically for Sepsis. goal Vanco trough range= 15-20 mcg/ml 01/12 1130 Vancomycin Trough = 15.3 mcg/ml; SCr = 0.8 mg/dl. Will continue Vancomycin 1,250 mg IV q12hrs. Will continue to monitor and make adjustments accordingly. Thank you for the protocol, Jailyn Correa RPh
[2017-01-12] MEDS: SUCRALFATE 1 GM TABLET PO SCH (21:21)
[2017-01-12] MEDS: NS FLUSH BAG 500ml IV PRN (23:28)
[2017-01-13] MEDS: SALINE FLUSH 10ml SYRINGE IVF PRN ×3 (00:23→09:14)
[2017-01-13] MEDS: CarBAMazepine 200 MG TABLET PO SCH ×3 (02:59→18:50)
[2017-01-13] MEDS: OXYCODONE/APAP 7.5 MG/325 MG TABLET PO SCH ×5 (02:59→18:50)
[2017-01-13] MEDS: CEFEPIME 1 GM in NS 100 ML IV SCH ×4 (03:00→21:10)
[2017-01-13] MEDS: LEVOTHYROXINE 50 MCG TABLET PO SCH (06:59)
[2017-01-13] MEDS: MAG-AL + SIM ORAL LIQUID 30ml PO PRN ×2 (07:24→16:15)
[2017-01-13] MEDS: ASPIRIN 325 MG TABLET PO SCH (09:01)
[2017-01-13] MEDS: ESCITALOPRAM 20 MG TABLET PO SCH (09:02)
[2017-01-13] MEDS: CLOPIDOGREL 75 MG TABLET PO SCH (09:02)
[2017-01-13] MEDS: GABAPENTIN 300 MG CAPSULE PO SCH ×3 (09:02→21:08)
[2017-01-13] MEDS: METHYLPREDNISOLONE SOD SUCC 125mg/2ml INJECTION IVP SCH ×2 (09:02→21:07)
[2017-01-13] MEDS: PRIMIDONE 50 MG TABLET PO SCH (09:02)
--- NOTE | 2017-01-13 10:14 | XRay Report ---
INDICATION: SOB PROCEDURE: CHEST 2-VIEWS UPRIGHT (PA & LAT) Encounter: Initial COMPARISON: January 12, 2017 FINDINGS: Upper lobe airspace opacity has partially cleared. Persistent patchy bilateral lower lobe infiltrates without significant change. No pneumothorax. Small bilateral pleural effusions. Heart size and mediastinal contours are stable. Ectatic thoracic aorta. Impression: Improving aeration of the right upper lobe with persistent bibasilar infiltrates. .
[2017-01-13] MEDS: ARFORMOTEROL NEB 15mcg/2ml IH SCH ×2 (10:25→20:41)
[2017-01-13] MEDS: BUDESONIDE INH.SOLN 0.5mg/2ml NEB IH SCH ×2 (10:25→19:34)
[2017-01-13] MEDS: ALBUTEROL/IPRATROPIUM 2.5mg-0.5mg/3ml NEB IH SCH ×4 (10:25→19:34)
--- NOTE | 2017-01-13 21:00 | Internal Med Progress Note ---
Internal Medicine Subjective Patient seen and examined. Benito continues to improve. He was able to ambulate down the maya and back today although he was quite winded. He is tolerating his antibiotics as well as steroids. He is receiving a breathing treatment during my exam. He denies chest pain at this time. His leg swelling is also improved and there is less redness in his lower extremities. He still has productive cough. Exam Vital Signs: Temp Pulse Resp BP Pulse Ox 96.9 F 83 16 161/86 H 93 01/13/17 16:00 01/13/17 16:00 01/13/17 20:41 01/13/17 17:04 01/13/17 16:00 Telemetry Rhythm: A-fib Height: 5 ft 11 in Weight: 93.2 kg Body Mass Index: 26.7 - Constitutional Present: no acute distress, mild distress, obese, cooperative - Routine HEENT Exam Head: Present: normocephalic, atraumatic, cushingoid faces Eye: Present: EOMI, PERRL, conjunctivae pink. Absent: conjunctival icterus, scleral injection ENT: Present: mucous membranes moist. Absent: dentition normal - Routine Neck Exam Present: supple, full ROM. Absent: JVD, carotid bruit, lymphadenopathy, thyromegaly - Routine Chest/Breast/Axilla Exam Chest wall: Absent: tenderness - Routine Respiratory Exam Present: accessory muscle use, rhonchi (throughout), wheezes (expiratory), distant breath sounds. Absent: crackles - Routine Cardiovascular Exam Present: no murmur. Absent: RRR, S3, S4 - Routine Abdominal Exam Present: non tender, distended (mildly). Absent: rebound, guarding, rigid - Routine Extremities Exam Present: edema. Absent: cyanosis, clubbing - Routine Skin Exam Present: intact, dry, ecchymosis. Absent: cyanosis, petechiae, urticaria, jaundice - Routine Neurological Exam Present: alert, oriented X3, CN II-XII intact. Absent: sensory deficit, motor deficit, tremors - Routine Psychiatric Exam Present: normal affect, cooperative, good insight, good judgment Internal Medicine Results - Labs CBC & Chem 7: 01/13/17 09:24 01/13/17 10:23 Labs: Short CBC 01/13/17 Range/Units 09:24 WBC 12.9 H (4.5-11.0) T/MM3 Hgb 9.6 L (13.5-17.5) GM/DL Hct 30.2 L (41-53) % Plt Count 408 H (130-400) T/MM3 BMP 01/13/17 10:23 Sodium 138 Potassium 5.0 Chloride 102 Carbon Dioxide 24 BUN 19.0 Creatinine 0.8 Glucose 92 Calcium 8.8 Liver Function 01/13/17 Range/Units 10:23 Total Bilirubin 0.40 (0.20-1.30) MG/DL AST 16 L D (17-59) U/L ALT 23 (21-72) U/L Alkaline Phosphatase 64 (38-126) U/L Albumin 3.5 (3.5-5.0) G/DL - ABG Interpretation ABG results: 01/10/17 10:20 ABG pH 7.460 H ABG pCO2 43 ABG pO2 57 L ABG HCO3 31 H ABG Total CO2 31.9 H ABG O2 Saturation 91.0 L ABG Base Excess 6.1 H Progress Note-A&P (1) Acute exacerbation of chronic obstructive airways disease Status: Acute Current Visit: Yes (2) Community acquired pneumonia Problem details: Right upper lobe Status: Acute Current Visit: Yes (3) Congestive heart failure Status: Chronic Current Visit: Yes (4) Severe sepsis Status: Acute Current Visit: Yes (5) Afib Status: Chronic Current Visit: Yes (6) Diabetes Status: Chronic Current Visit: Yes (7) HTN (hypertension) Status: Chronic Current Visit: Yes - Time Spent With Patient Total time spent is greater than 50% in coordination of care (as documented) at patient's floor/unit and/or counseling patient: 25 - 35 minutes Sepsis Assessment - Evaluation Sepsis screening result: No Definite Risk - Focused Exam Vital Signs Temp Pulse Resp BP Pulse Ox 01/13/17 20:41 16 01/13/17 19:34 16 01/13/17 17:04 161/86 H 01/13/17 16:00 96.9 F 83 18 191/95 H 93 01/13/17 14:54 18 01/13/17 11:08 24 92 01/13/17 10:14 102 H 96 01/13/17 10:13 119 H 24 84 L 01/13/17 09:30 18 92 Respiratory exam: Present: wheezes (diffuse), diminished air movement Cardiovascular exam: Present: RRR. Absent: murmur Capillary refill: < 2-3 Seconds Hospital Course Summary Disclaimer: The visit summary below is not to be considered part of the above Progress Note. Hospital Course: 01/11/17 13:35 Patient admitted with acute exacerbation of COPD. He was started on steroids and antibiotics and given IV fluids for sepsis. He is improving. If he continues to improve overnight I will transfer him to the medical floor tomorrow morning. 01/12/17 13:45 Patient appears improved. He is still short of breath. Chest x-ray appears somewhat worsened from yesterday. He is stable to transfer to the regular medical floor and so I will do so. 01/13/17 21:02 Benito is again improved today. He was able to ambulate farther although he was quite winded at the end. He is tolerating his medications well. We may be able to discharge him home tomorrow.
[2017-01-13] MEDS: SUCRALFATE 1 GM TABLET PO SCH (21:09)
[2017-01-14] MEDS: CEFEPIME 1 GM in NS 100 ML IV SCH ×2 (03:48→10:16)
[2017-01-14] MEDS: CarBAMazepine 200 MG TABLET PO SCH ×2 (03:48→10:20)
[2017-01-14] MEDS: OXYCODONE/APAP 7.5 MG/325 MG TABLET PO SCH ×5 (03:51→14:02)
[2017-01-14] MEDS: LEVOTHYROXINE 50 MCG TABLET PO SCH (06:20)
[2017-01-14 07:30] VITALS: BP 152/87; PULSE 75; TEMP 96.9
[2017-01-14] MEDS: BUDESONIDE INH.SOLN 0.5mg/2ml NEB IH SCH (07:50)
[2017-01-14] MEDS: ARFORMOTEROL NEB 15mcg/2ml IH SCH (07:50)
[2017-01-14 07:56] VITALS: O2SAT 97
[2017-01-14] MEDS: CLOPIDOGREL 75 MG TABLET PO SCH (08:20)
[2017-01-14] MEDS: GABAPENTIN 300 MG CAPSULE PO SCH ×2 (08:20→14:02)
[2017-01-14] MEDS: ESCITALOPRAM 20 MG TABLET PO SCH (08:20)
[2017-01-14] MEDS: ASPIRIN 325 MG TABLET PO SCH (08:20)
[2017-01-14] MEDS: PRIMIDONE 50 MG TABLET PO SCH (08:20)
[2017-01-14] MEDS: METHYLPREDNISOLONE SOD SUCC 125mg/2ml INJECTION IVP SCH (08:21)
--- NOTE | 2017-01-14 08:54 | XRay Report ---
INDICATION: acute exacerbation of COPD PROCEDURE: CHEST 2-VIEWS UPRIGHT (PA & LAT) Encounter: Initial COMPARISON: January 13, 2017 FINDINGS: Lung douglass are unchanged with right upper and bilateral lower lobe areas of airspace disease. Small bilateral pleural effusions. No pneumothorax or new infiltrate. Heart size and mediastinal contours are unchanged. Impression: No change. .
[2017-01-14] MEDS: MAG-AL + SIM ORAL LIQUID 30ml PO PRN (08:56)
[2017-01-14] MEDS: ALBUTEROL/IPRATROPIUM 2.5mg-0.5mg/3ml NEB IH SCH ×2 (09:21→11:24)
[2017-01-14] MEDS: SALINE FLUSH 10ml SYRINGE IVF PRN (10:18)
[2017-01-14] MEDS: NS FLUSH BAG 500ml IV PRN (10:18)
[2017-01-14 11:30] VITALS: RESP 20
--- NOTE | 2017-01-14 13:58 | Discharge Instructions ---
Discharge Plan - Med Rec/Dispo Referrals/Follow Up: Matthew Barrow DO [Family Provider] - Michelle Instructions: Sepsis (GEN) Prescriptions: New predniSONE [Prednisone] 50 mg PO WB #5 tab Continue Albuterol Inhaler [Ventolin Hfa] 2 puff ORAL INH Q4HR predniSONE [Prednisone] 20 mg PO BID Trazodone [Desyrel] 100 mg PO HS Tramadol HCl [Ultram] 50 mg PO Q4H PRN PRN Reason: Pain Simvastatin [Zocor] 10 mg PO HS Primidone [Mysoline] 100 mg PO DAILY Potassium Chloride [K-Tab ER] 20 meq PO DAILY Omeprazole 1 cap PO HS Nitroglycerin [Nitrostat] 0.4 mg SL Q5M PRN PRN Reason: Chest Pain Metoprolol Succinate 50 mg PO DAILY Levothyroxine Tab [Synthroid] 50 mcg PO DAILY Gabapentin 300 mg PO TID Furosemide [Lasix] 2 tab PO DAILY Dabigatran [Pradaxa] 1 tab PO DAILY Clopidogrel Bisulfate [Clopidogrel] 1 tab PO DAILY Budesonide [Pulmicort] 0.5 mg IH BID Arformoterol Neb [Brovana Neb] 1 unit INH BID Albuterol Neb (0.5%) [Proventil Neb (0.5%)] 2.5 mg AEROSOL Q42H PRN PRN Reason: Shortness Of Air/Wheezing Isosorbide Mononitrate [Isosorbide Mononitrate ER] 120 mg PO DAILY Bumetanide Tab [Bumex] 4 mg PO DAILY Metformin [Glucophage] 1 tab PO BIDWM Pantoprazole Tab [Protonix Tab] 40 mg PO DAILY Morphine Sulfate *Sr* [Ms Contin] 15 mg PO BID Oxycodone/APAP 7.5/325 [Percocet 7.5/325] 1 tab PO Q4H Metformin [Glucophage] 1 tab PO BID Escitalopram [Lexapro] 1 tab PO DAILY Aspirin 1 tab PO DAILY Sucralfate [Carafate] 1 gm PO HS carBAMazepine [Carbamazepine ER] 100 mg PO Q8H - Disposition 01 Discharged Home, Self-Care
--- NOTE | 2017-05-11 14:02 | Discharge Summary ---
DISCHARGE DIAGNOSES 1. Acute exacerbation of COPD. 2. Hypoxia. 3. Severe sepsis. 4. Right lower lobe community-acquired pneumonia. 5. Coronary artery disease. 6. Diabetes mellitus type II. 7. Hypertension. 8. Peripheral arterial disease. 9. Hyperlipidemia. HOSPITAL COURSE Benito Tay is a pleasant 76-year-old white male who was admitted to the emergency department with worsening shortness of breath with hypoxia. He was noted on the initial chest x-ray as having right lower lobe pneumonia. He was admitted and started on empiric antibiotics as well as IV steroids. It was later determined that he was really having an acute exacerbation of COPD with hypoxia and worsening of his lung function. His steroids were increased. He was later able to be moved to the floor where he continued to improve. He was sent home with a tapering dose of prednisone and asked to follow up in the office as an outpatient. DISCHARGE CONDITION Stable. MTDD
== END 2017-01-14 15:10 | disposition home health service (06) | DRG 871 ==
LOC: ED 07:07 → CCU 09:30 → MED 01-12 14:08
PROVIDERS: ADMIT Internal Medicine; ATTEND Internal Medicine

== ENCOUNTER 2017-12-19 22:35 | Inpatient (IN) ==
[2017-12-19] MEDS ORDERED: METHYLPREDNISOLONE SOD SUCC 125mg/2ml INJECTION IVP ONE (22:52)
[2017-12-19] MEDS: SALINE FLUSH 10ml SYRINGE IVF PRN ×3 (23:10→23:58)
--- NOTE | 2017-12-19 23:49 | Emergency Department Report ---
SOB HPI - General Chief Complaint: Shortness of Breath/Dyspnea Stated Complaint: soa Time Seen by Provider: 12/19/17 22:48 Source: patient Mode of arrival: ambulatory Limitations: no limitations - History of Present Illness 2-3 day history of worsening shortness of breath and dyspnea, with increasing cough and mucus production. Patient feels as though he is producing so much mucus that but cannot get it out. He has used his normal twice a day nebulized treatments, and has used a total of 3 additional albuterol nebulized treatments today. Patient also takes prednisone 20 mg daily as a routine. - Related Data Home Medications Medication Instructions Recorded Confirmed Albuterol HFA Inhaler [Ventolin 2 puff ORAL INH Q4HR PRN 01/08/17 12/20/17 Hfa 90 mcg/actuation] Albuterol Neb (0.5%) [Proventil 2.5 mg AEROSOL Q4H PRN 01/08/17 12/20/17 Neb (0.5%)] Arformoterol Neb [Brovana Neb] 15 mcg INH BID 01/08/17 12/20/17 Aspirin 325 mg PO DAILY 01/08/17 12/20/17 Escitalopram [Lexapro] 20 mg PO DAILY 01/08/17 12/20/17 Gabapentin 300 mg PO TID 01/08/17 12/20/17 Levothyroxine Tab [Synthroid] 50 mcg PO DAILY 01/08/17 12/20/17 Metoprolol Succinate 50 mg PO DAILY 01/08/17 12/20/17 Nitroglycerin [Nitrostat] 0.4 mg SL Q5M PRN 01/08/17 12/20/17 Omeprazole 40 mg PO BID 01/08/17 12/20/17 Primidone [Mysoline] 100 mg PO DAILY 01/08/17 12/20/17 Simvastatin [Zocor] 10 mg PO HS 01/08/17 12/20/17 Trazodone [Desyrel] 100 mg PO HS 01/08/17 12/20/17 Metformin [Glucophage] 1,000 mg PO BIDWM 01/10/17 12/20/17 Morphine Sulfate *SR* [Ms Contin] 15 mg PO BID 01/10/17 12/20/17 Sucralfate [Carafate] 1 gm PO HS 01/10/17 12/20/17 carBAMazepine [Carbamazepine ER] 100 mg PO BID 01/10/17 12/20/17 predniSONE [Prednisone] 20 mg PO DAILY 04/29/17 12/20/17 Budesonide Inhalation [Pulmicort 0.5 mg INH BID 09/11/17 12/20/17 Inhalation] Bumetanide 4 mg PO DAILY 09/11/17 12/20/17 Hydrocodone/APAP 7.5/325 [[place] 1 tab PO Q8H PRN 09/11/17 12/20/17 7.5/325] Isosorbide Mononitrate ER [Imdur] 30 mg PO DAILY 10/13/17 12/20/17 Previous Rx's Medication Instructions Recorded Potassium Chloride [K-DUR 20 mEq 40 meq PO DAILY tab 05/11/17 Tablet] Levofloxacin [Levaquin] 750 mg PO DAILY #7 tab 10/13/17 Allergies Allergy/AdvReac Type Severity Reaction Status Date / Time Sulfa (Sulfonamide Allergy Unknown THROAT Verified 12/20/17 00:08 Antibiotics) SWELLED adhesive tape Allergy Verified 12/20/17 00:08 dabigatran etexilate Allergy Bleeding Verified 12/20/17 00:08 [From Pradaxa] Review of Systems All systems: reviewed and negative except as stated PFSH Patient Stated Medical History Peripheral Neuropathy Yes Seizures Yes Transient Ischemic Attacks ( Yes: HX OF TIA) Dysphagia Yes Congestive Heart Failure Yes Coronary Artery Disease Yes Heart Murmur Yes Hypertension Yes Myocardial Infarction Yes Other Cardiology Yes: PVD Asthma Yes Bronchitis Yes Chronic Obstructive Pulmonary Yes Disease (COPD) Pneumonia Yes Pulmonary Edema Yes Diabetes Mellitus Type 2 Yes Gastroesophageal Reflux Yes Disease Other GI Yes: CHRONIC INTESTINAL ISCHEMIA PER H&P Hx Renal Disease No Cellulitis Yes MRSA Yes Sepsis Yes Depression Yes Surgical History: Cardiac bypass surgery. Left Carotid endarterectomy. angioplasty ad baloon left leg - [facility]. 04-23-15 Bare metal stent - [facility]. 10-30-14 Heart Cath, grafts patent & EF 70% - [facility]. Heart Cath RCA stenosis 50% - [facility]. 03-28-2016 Left hip hemiarthroplasty. Lap [facility] - [facility]. 1970 Left Inguinal hernia. 06-18-2008 EGD- Hiatal hernia, duodenal ulcer - [facility]. 03-15-2013 c-scope, tubular adenoma x7 - [facility]. 2006 c -scope diverticulosis. 2003 c-scope polyp. - Social History Smoking status: Former smoker second hand exposure: No Substance use type: does not use Alcohol intake: never Alcohol intake frequency: does not drink Housing: house Household members: spouse, children Current occupational status: retired Does patient use chewing tobacco?: No Current residence: Apartment/Private Home Physical Exam - Limitations Limitations: no limitations - General General appearance: alert, in distress - Normal Exams: Head:: Normocephalic without trauma Eyes:: Pupils are PERRLA w/ EOMI, No scleral icterus, irritation, or foreign bodies noted ENMT:: No facial trauma, nasal exudates, pharyngeal erythema, or exudates are noted Neck:: Full range of motion, without adenopathy, JVD, bruits or thyromegaly Cardiovascular:: Regular rate and rhythm, without murmur or gallop, Pulses 2+ all extremities, capillary refill, <2 seconds all extremities Abdomen:: Bowel sounds positive, soft, non-tender, non-distended, no hepatosplenomegaly, masses or bruits noted Lymphatic:: No lymphadenopathy, or lymphedema noted Musculoskeletal:: No tenderness, or deformity noted, good range of motion, all extremities Integumentary:: No rashes, hives, or bruising noted, hair and nails, without abnormality Neurological:: Patient is alert, and oriented, cranial nerves, motor/sensory/ cerebellar, exams w/o gross deficits, to observation Psychiatric:: Patient exhibits, appropriate attention, emotion and affect - Chest Chest inspection: Present: normal inspection, symmetric chest wall rise. Absent : tenderness - Respiratory Respiratory exam: Present: respiratory distress, wheezes, accessory muscle use, prolonged expiratory phase. Absent: normal lung sounds bilaterally (course tight wheezes bilaterally with respiratory distress.), stridor Course Vital Signs Temperature 97.7 F 12/19/17 22:37 Pulse Rate 109 H 12/19/17 22:37 Respiratory Rate 28 H 12/19/17 22:37 Blood Pressure 138/66 12/19/17 22:37 Pulse Oximetry 87 L 12/19/17 22:37 Temperature 97.7 F 12/19/17 22:37 Pulse Rate 133 H 12/20/17 01:42 Respiratory Rate 23 12/20/17 01:42 Blood Pressure 123/88 12/20/17 01:42 Pulse Oximetry 93 12/20/17 01:42 Shortness of Breath/Dyspnea - [facility] Narrative Medical decision making narrative: O2 saturations are maintaining at 92-93% on the 4L nasal cannula, she normally only requires 2LNC Patient given duo nebs 2, with slight Medrol 125 mg IV - some improvement, but patient still quite tight and still in some respiratory distress. Chest x-ray shows no acute findings Patient given additional DuoNeb 2, and allowed to rest. Reexamination finds the patient still having some respiratory distress with tight wheezes bilaterally. 2 additional DuoNeb abs are given in the ER, as well as additional 125 mg Solu-Medrol IV On reexamination patient still has tight wheezes bilaterally, has not reached baseline, and continues to require additional oxygen ABG - drawn and as expected. Patient discussed with Dr. Tony Chase, we'll admit inpatient for COPD exacerbation with hypoxemia - Lab Data Result diagrams: 12/19/17 23:13 12/19/17 23:13 Lab Results 12/19/17 12/19/17 12/20/17 Range/Units 23:13 23:13 02:04 WBC 19.3 H (4.5-11.0) T/MM3 RBC 3.79 L (4.50-5.90) M/MM3 Hgb 10.7 L (13.5-17.5) GM/DL Hct 33.2 L (41-53) % MCV 87.6 (80-100) UM3 MCH 28.2 (26-34) UUG MCHC 32.2 (31-37) GM/DL RDW Std Deviation 48.3 (36.9-50.2) FL Plt Count 369 (130-400) T/MM3 MPV 9.2 L (9.4-12.4) UM3 Immature Gran % (Auto) Not performed Neut % (Auto) Not performed Lymph % (Auto) Not performed Real % (Auto) Not performed Eos % (Auto) Not performed Baso % (Auto) Not performed Neut # (Auto) Not performed Lymph # (Auto) Not performed Real # (Auto) Not performed Eos # (Auto) Not performed Baso # (Auto) Not performed Abs Immat Gran (auto) Not performed Neutrophils % (Manual) 71.0 H (33-66) % Band Neutrophils % 1.0 (0-6) % Lymphocytes % (Manual) 25.0 (23-45) % Monocytes % (Manual) 3.0 (0-9.0) % Neutrophils # (Manual) 13.7 H (1.8-7.7) T/MM3 Band Neutrophils # 0.2 T/MM3 Lymphocytes # (Manual) 4.8 (1-4.8) T/MM3 Monocytes # (Manual) 0.6 (0-0.8) T/MM3 RBC Morph Comment Normal ABG pH 7.409 (7.350-7.450) ABG pCO2 42 (34.0-45.0) MMHG ABG pO2 68.1 L (80.0-100.0) MMHG ABG HCO3 26.8 H (22.0-26.0) MEQ/L ABG Total CO2 28.1 H (23.0-27.0) MEQ/L ABG O2 Saturation 93.4 L (95.0-98.0) % ABG Base Excess 1.8 (-2.0-2.0) MMOL/L Turbidity < 20 (0-20) Sodium 133 L (134-144) MEQ/L Potassium 3.8 (3.6-5) MEQ/L Chloride 96 L (98-107) MEQ/L Carbon Dioxide 28 (22-30) MEQ/L Anion Gap 9 (5-15) meq/L BUN 12.0 (9-20) MG/DL Creatinine 0.7 L (0.8-1.5) mg/dL GFR Calculation 109 BUN/Creatinine Ratio 17 (6-26) RATIO Glucose 126 H (75-110) MG/DL Calculated Osmolality 258 L (261-280) MOSM/KG Calcium 8.5 (8.4-10.2) MG/DL Total Bilirubin 0.40 (0.20-1.30) MG/DL Conjugated Bilirubin 0.00 (0.00-0.30) mg/dL Unconjugated Bilirubin 0.10 (0.00-1.1) mg/dL Icterus Index < 2 (0-7) AST 13 L (17-59) U/L ALT 9 (1-50) U/L Alkaline Phosphatase 98 (38-126) U/L Total Protein 6.3 (6.3-8.2) g/dL Albumin 3.6 (3.5-5.0) g/dL Globulin 2.7 (2.4-3.6) G/DL Albumin/Globulin Ratio 1.3 (1.1-2.2) RATIO Plasma Lactate 1.2 (0.6-2.2) MMOL/L Specimen Hemolysis < 15 (0-25) Critical Care Time Critical Care Time: Yes Total Critical Care Time: 50 Attestation: Patient required aggressive intervention for near respiratory failure, severe respiratory distress with hypoxemia. Disposition Clinical Impression: COPD exacerbation, Hypoxemia Disposition: 02 To [facility] [place] Acute Care Condition: Improved Prescriptions: No Action Albuterol HFA Inhaler [Ventolin Hfa 90 mcg/actuation] 2 puff ORAL INH Q4HR PRN PRN Reason: Wheezing Trazodone [Desyrel] 100 mg PO HS Simvastatin [Zocor] 10 mg PO HS Primidone [Mysoline] 100 mg PO DAILY Omeprazole 40 mg PO BID Nitroglycerin [Nitrostat] 0.4 mg SL Q5M PRN PRN Reason: Chest Pain Metoprolol Succinate 50 mg PO DAILY Levothyroxine Tab [Synthroid] 50 mcg PO DAILY Gabapentin 300 mg PO TID Arformoterol Neb [Brovana Neb] 15 mcg INH BID Albuterol Neb (0.5%) [Proventil Neb (0.5%)] 2.5 mg AEROSOL Q4H PRN PRN Reason: Shortness Of Air/Wheezing Metformin [Glucophage] 1,000 mg PO BIDWM Morphine Sulfate *SR* [Ms Contin] 15 mg PO BID Potassium Chloride [K-DUR 20 mEq Tablet] 40 meq PO DAILY tab Budesonide Inhalation [Pulmicort Inhalation] 0.5 mg INH BID Bumetanide 4 mg PO DAILY Hydrocodone/APAP 7.5/325 [[place] 7.5/325] 1 tab PO Q8H PRN PRN Reason: Pain Isosorbide Mononitrate ER [Imdur] 30 mg PO DAILY Levofloxacin [Levaquin] 750 mg PO DAILY #7 tab Escitalopram [Lexapro] 20 mg PO DAILY Aspirin 325 mg PO DAILY Sucralfate [Carafate] 1 gm PO HS carBAMazepine [Carbamazepine ER] 100 mg PO BID predniSONE [Prednisone] 20 mg PO DAILY Referrals: Matthew Barrow DO [Primary Care Provider] - - Seen By: physician
[2017-12-19] MEDS ORDERED: NS 1,000 ML IV ONE (23:50)
[2017-12-19] MEDS ORDERED: ALBUTEROL/IPRATROPIUM 2.5mg-0.5mg/3ml NEB AEROSOL ONE (23:51)
[2017-12-20] MEDS ORDERED: METHYLPREDNISOLONE SOD SUCC 125mg/2ml INJECTION IVP ONE (00:58)
[2017-12-20] MEDS ORDERED: ALBUTEROL/IPRATROPIUM 2.5mg-0.5mg/3ml NEB AEROSOL ONE (01:15)
[2017-12-20] MEDS ORDERED: DEXTROSE 50% SYRINGE 50ml (1 AMP) IVP PRN (02:43)
[2017-12-20] MEDS ORDERED: ALBUTEROL 2.5mg/3ml (0.083%) NEB AEROSOL PRN (02:43)
[2017-12-20] MEDS ORDERED: NITROGLYCERIN 0.4 MG SUBLINGUAL TABLET SL PRN (02:43)
[2017-12-20] MEDS ORDERED: MORPHINE SULFATE 4mg INJECTION IVP PRN (02:43)
[2017-12-20] MEDS ORDERED: ACETAMINOPHEN 500 MG TABLET PO PRN (02:43)
--- NOTE | 2017-12-20 03:02 | History & Physical Report ---
History of Present Illness Date: 12/20/17 Chief complaint: short of breath HPI: This is a very nice 77 y/o male with end stage lung disease. He has 2 liters oxygen and 20 mg pred requirement daily. He had increased short of breath x 2 d. Cough productive white creamy sputum. no fever, chills or sweats. no chest pain. He has a history of CAD. no abdomen pain, no nausea/vomiting. IN the ED ABG not c/w hypercapnea. He is requiring 4 l now . After multiple breathing tx he continues to wheeze. Admit with copd exacerbation orders. Review of Systems Review of systems: no headache, no fever, chills or sweats, severe dyspnea on exertion, no chest pain, cough as noted above, no abdomen pain, no nausea/vomiting. no focal motor weakness. 12 point careful review of systems neg except for outlined above. Past Medical History Medical History Updates: copd oxygen and steroid dependent, seizure disorder, TIA, atrial fibrillation, CAD, DM2, Surgical History: Cardiac bypass surgery. Left Carotid endarterectomy. angioplasty ad baloon left leg - [facility]. 04-23-15 Bare metal stent - [facility]. 10-30-14 Heart Cath, grafts patent & EF 70% - [facility]. Heart Cath RCA stenosis 50% - [facility]. 03-28-2016 Left hip hemiarthroplasty. Lap [facility] - [facility]. 1970 Left Inguinal hernia. 06-18-2008 EGD- Hiatal hernia, duodenal ulcer - [facility]. 03-15-2013 c-scope, tubular adenoma x7 - [facility]. 2006 c -scope diverticulosis. 2003 c-scope polyp. Family History Updates: non contributory at this time Family History: As Above - Social History Smoking status: Former smoker Alcohol intake frequency: does not drink Housing: house Household members: spouse Current occupational status: retired Current occupational exposures/hazards: No Does patient use chewing tobacco?: No Current residence: Apartment/Private Home Medications Home Medications Medication Instructions Recorded Confirmed Type Albuterol HFA Inhaler [Ventolin 2 puff ORAL INH Q4HR PRN 01/08/17 12/20/17 History Hfa 90 mcg/actuation] Albuterol Neb (0.5%) [Proventil 2.5 mg AEROSOL Q4H PRN 01/08/17 12/20/17 History Neb (0.5%)] Arformoterol Neb [Brovana Neb] 15 mcg INH BID 01/08/17 12/20/17 History Aspirin 325 mg PO DAILY 01/08/17 12/20/17 History Escitalopram [Lexapro] 20 mg PO DAILY 01/08/17 12/20/17 History Gabapentin 300 mg PO TID 01/08/17 12/20/17 History Levothyroxine Tab [Synthroid] 50 mcg PO DAILY 01/08/17 12/20/17 History Metoprolol Succinate 50 mg PO DAILY 01/08/17 12/20/17 History Nitroglycerin [Nitrostat] 0.4 mg SL Q5M PRN 01/08/17 12/20/17 History Omeprazole 40 mg PO BID 01/08/17 12/20/17 History Primidone [Mysoline] 100 mg PO DAILY 01/08/17 12/20/17 History Simvastatin [Zocor] 10 mg PO HS 01/08/17 12/20/17 History Trazodone [Desyrel] 100 mg PO HS 01/08/17 12/20/17 History Metformin [Glucophage] 1,000 mg PO BIDWM 01/10/17 12/20/17 History Morphine Sulfate *SR* [Ms Contin] 15 mg PO BID 01/10/17 12/20/17 History Sucralfate [Carafate] 1 gm PO HS 01/10/17 12/20/17 History carBAMazepine [Carbamazepine ER] 100 mg PO BID 01/10/17 12/20/17 History predniSONE [Prednisone] 20 mg PO DAILY 04/29/17 12/20/17 History Potassium Chloride [K-DUR 20 mEq 40 meq PO DAILY tab 05/11/17 12/20/17 Rx Tablet] Budesonide Inhalation [Pulmicort 0.5 mg INH BID 09/11/17 12/20/17 History Inhalation] Bumetanide 4 mg PO DAILY 09/11/17 12/20/17 History Hydrocodone/APAP 7.5/325 [[place] 1 tab PO Q8H PRN 09/11/17 12/20/17 History 7.5/325] Isosorbide Mononitrate ER [Imdur] 30 mg PO DAILY 10/13/17 12/20/17 History Levofloxacin [Levaquin] 750 mg PO DAILY #7 tab 10/13/17 12/20/17 Rx Allergies Allergy/AdvReac Type Severity Reaction Status Date / Time Sulfa (Sulfonamide Allergy Unknown THROAT Verified 12/20/17 00:08 Antibiotics) SWELLED adhesive tape Allergy Verified 12/20/17 00:08 dabigatran etexilate Allergy Bleeding Verified 12/20/17 00:08 [From [facility]] Exam Vital Signs: Temperature 97.7 F 12/19/17 22:37 Pulse Rate 133 H 12/20/17 01:42 Respiratory Rate 23 12/20/17 01:42 Blood Pressure 123/88 12/20/17 01:42 Pulse Oximetry 93 12/20/17 01:42 Telemetry Rhythm: A-fib Height/Weight/BMI: Height 1.78 m Weight 82.5 kg - Constitutional Present: moderate distress, well nourished, thin, cooperative - Routine HEENT Exam Head: Present: normocephalic, atraumatic Eye: Present: EOMI ENT: Present: mucous membranes dry - Routine Neck Exam Present: supple, full ROM - Routine Respiratory Exam Comments: end exp wheezes in both bases bilaterally - Routine Cardiovascular Exam Present: irregularly irregular - Routine Abdominal Exam Present: soft, non distended, non tender - Routine Extremities Exam Present: clubbing, no edema, full ROM - Routine Skin Exam Present: intact - Routine Neurological Exam Present: alert, oriented X3, CN II-XII intact, moving all extremities, vision grossly intact, hearing grossly intact, normal speech - Routine Psychiatric Exam Present: normal affect, normal thought process Results - Labs CBC & Chem 7: 12/19/17 23:13 12/19/17 23:13 Labs: all xrays, ekg and labs reviewed and will be discussed below - ABG Interpretation ABG results: 12/20/17 02:04 ABG pH 7.409 ABG pCO2 42 ABG pO2 68.1 L ABG HCO3 26.8 H ABG Total CO2 28.1 H ABG O2 Saturation 93.4 L ABG Base Excess 1.8 Assessment and Plan (1) Acute exacerbation of chronic obstructive airways disease Current visit: No Status: Acute (2) Hypoxemia Current visit: Yes Status: Acute (3) Afib Current visit: No Status: Chronic (4) Anemia of chronic disease Current visit: No Status: Chronic (5) Diabetes Current visit: No Status: Chronic (6) HTN (hypertension) Current visit: No Status: Chronic (7) Bronchitis Current visit: Yes Status: Acute (8) GERD (gastroesophageal reflux disease) Current visit: Yes Status: Acute Assessment and Plan: 1. copd exacerbation acute POA: duoneb, albuteol, solumedrol, abg does not demonstrate hypercapnic resp failure. taper steroids slowly. on 20 mg daily baseline 2. hypoxia acute POA; on 2 liters normally , now requirers 3 to 4. not c/w hypoxic acute respiratory failure 3. bronchitis acute POA: iv levaquin, cx as indicated 4. dm2 chronic POA: correctional plan, anticipate hyperglycemia with steroids 5. CAD chronic POA: continue statin, imdur, no evidence of worsening cardiac ds 6. GERD chronic POA: IV PPI, carafate continue 7. hypothyroid chronic POA: synthroid DVT Prophylaxis: SCD's, Lovenox GI Prophylaxis: Protonix Resuscitation Status: Full Code - Time spent with patient Time with patient PN: 35 minutes - Physician Narrative Physician: Nora Contreras MD Narrative: Date: 12/20/17 Time: 0258 Hospital Course Summary Disclaimer: The visit summary below is not to be considered part of the above Progress Note.
[2017-12-20 03:07] VITALS: BMI 25.2
[2017-12-20] MEDS: GABAPENTIN 300 MG CAPSULE PO SCH ×4 (03:24→20:58)
[2017-12-20] MEDS: PANTOPRAZOLE 40 MG INJECTION IVP SCH ×2 (03:28→14:38)
[2017-12-20] MEDS: ALBUTEROL/IPRATROPIUM 2.5mg-0.5mg/3ml NEB AEROSOL SCH ×4 (04:28→21:12)
[2017-12-20] MEDS ORDERED: FALL RISK - PHARMACY CONSULT MC ONE (05:06)
[2017-12-20] MEDS: HYDROCODONE/APAP 7.5 MG/325 MG TABLET PO PRN ×3 (05:07→22:38)
[2017-12-20] MEDS: METHYLPREDNISOLONE SOD SUCC 125mg/2ml INJECTION IVP SCH ×4 (06:10→20:57)
[2017-12-20] MEDS: INSULIN ASPART 100unit/ml INJECTION SQ PRN ×4 (06:48→22:39)
[2017-12-20] MEDS: LEVOTHYROXINE 50 MCG TABLET PO SCH (07:29)
--- NOTE | 2017-12-20 08:23 | XRay Report ---
LOCATION OF DICTATION: [facility] EXAM: XR chest 2V HISTORY: COUGH, DYSPNEA COMPARISON: October 13, 2017 FINDINGS: Heart size is normal. Postsurgical changes of median sternotomy. There are mild hazy right lower lobe interstitial opacities demonstrate improvement compared to the previous CT chest may reflect residual or recurrent infiltrates versus atelectasis or scarring. Recommend follow based on continued symptoms. There are no pleural effusions. There is no pneumothorax. IMPRESSION: Mild hazy right lower lobe interstitial opacities may reflect recurrent or residual infiltrates versus atelectasis/scarring. Recommend continued follow-up. .
[2017-12-20] MEDS ORDERED: LEVOFLOXACIN PB 500 MG/100 ML BAG IV SCH (09:00)
[2017-12-20] MEDS ORDERED: ISOSORBIDE MONONITRATE ER 30 MG TABLET PO SCH (09:00)
[2017-12-20] MEDS: ASPIRIN 325 MG TABLET PO SCH (09:42)
[2017-12-20] MEDS: SALINE FLUSH 10ml SYRINGE IVF PRN ×2 (09:43→14:37)
[2017-12-20] MEDS: ENOXAPARIN 40 MG/0.4 ML INJECTION SQ SCH (09:48)
[2017-12-20] MEDS: ESCITALOPRAM 20 MG TABLET PO SCH (09:48)
[2017-12-20] MEDS: CARBAMAZEPINE 100 MG PO SCH ×2 (10:43→20:58)
[2017-12-20] MEDS: BENZONATATE 100 MG CAPSULE PO PRN ×2 (11:51→20:59)
[2017-12-20] MEDS: AZITHROMYCIN 500 MG TABLET PO SCH (14:38)
[2017-12-20] MEDS: SUCRALFATE 1 GM TABLET PO SCH (20:57)
[2017-12-20] MEDS: TRAZODONE 100 MG TABLET PO SCH (20:58)
[2017-12-20] MEDS: SIMVASTATIN 10 MG TABLET PO SCH (21:29)
[2017-12-21] MEDS: METHYLPREDNISOLONE SOD SUCC 125mg/2ml INJECTION IVP SCH ×4 (02:29→20:25)
[2017-12-21] MEDS: PANTOPRAZOLE 40 MG INJECTION IVP SCH ×2 (02:29→14:10)
[2017-12-21] MEDS: ALBUTEROL/IPRATROPIUM 2.5mg-0.5mg/3ml NEB AEROSOL SCH ×4 (02:50→21:00)
[2017-12-21] MEDS: ISOSORBIDE MONONITRATE ER 30 MG TABLET PO SCH (05:40)
[2017-12-21] MEDS: LEVOTHYROXINE 50 MCG TABLET PO SCH (05:40)
[2017-12-21] MEDS: BENZONATATE 100 MG CAPSULE PO PRN (05:41)
[2017-12-21] MEDS: INSULIN ASPART 100unit/ml INJECTION SQ PRN ×3 (06:56→22:33)
[2017-12-21] MEDS: ASPIRIN 325 MG TABLET PO SCH (08:36)
[2017-12-21] MEDS: CARBAMAZEPINE 100 MG PO SCH ×2 (08:36→20:24)
[2017-12-21] MEDS: ESCITALOPRAM 20 MG TABLET PO SCH (08:36)
[2017-12-21] MEDS: AZITHROMYCIN 500 MG TABLET PO SCH (08:36)
[2017-12-21] MEDS: ENOXAPARIN 40 MG/0.4 ML INJECTION SQ SCH (08:37)
[2017-12-21] MEDS: GABAPENTIN 300 MG CAPSULE PO SCH ×3 (08:37→20:24)
[2017-12-21] MEDS: HYDROCODONE/APAP 7.5 MG/325 MG TABLET PO PRN ×2 (11:13→20:24)
--- NOTE | 2017-12-21 16:53 | Internal Med Progress Note ---
Internal Medicine Subjective Patient seen and examined in his room. His is at the bedside. Questions answered. He still has a very strong, nonproductive cough. He denies chest pain. He is short of breath. Denies fevers chills or night sweats. He is quite fatigued and has been sleeping a lot. I just examined him after he received a breathing treatment and he still has a cough and wheeze. Exam Vital Signs: Temperature 97.8 F 12/21/17 11:14 Pulse Rate 77 12/21/17 16:00 Respiratory Rate 20 12/21/17 16:27 Blood Pressure 132/78 12/21/17 11:14 Pulse Oximetry 95 12/21/17 12:11 Height/Weight/BMI: Height 5 ft 11 in Weight 80.2 kg Body Mass Index 25.2 - Constitutional Present: no acute distress, cooperative - Routine HEENT Exam Head: Present: normocephalic, atraumatic Eye: Present: EOMI, PERRL, conjunctivae pink. Absent: conjunctival icterus, scleral injection ENT: Present: mucous membranes moist, oropharynx clear, nares patent - Routine Neck Exam Present: supple. Absent: JVD, carotid bruit, lymphadenopathy, thyromegaly - Routine Chest/Breast/Axilla Exam Chest wall: Absent: tenderness Axillae: Absent: lymphadenopathy - Routine Respiratory Exam Present: accessory muscle use, dyspnea, wheezes - Routine Cardiovascular Exam Present: irregularly irregular. Absent: S3, S4 - Routine Abdominal Exam Present: soft, normoactive bowel sounds, non distended, non tender - Routine Extremities Exam Present: edema. Absent: cyanosis, clubbing - Routine Neurological Exam Present: alert, oriented X3, CN II-XII intact - Routine Psychiatric Exam Present: cooperative, good insight, good judgment. Absent: normal affect (ill) , depressed, anxious Internal Medicine Results - Labs CBC & Chem 7: 12/20/17 05:54 12/20/17 05:54 Progress Note-A&P - Time Spent With Patient Total time spent is greater than 50% in coordination of care (as documented) at patient's floor/unit and/or counseling patient: 25 - 35 minutes (1) Pertussis Status: Acute Assessment and plan: Currently being treated with Zithromax 500 mg daily Current Visit: Yes (2) Acute exacerbation of chronic obstructive airways disease Status: Acute Current Visit: No (3) GERD (gastroesophageal reflux disease) Status: Acute Current Visit: No (4) Afib Status: Chronic Current Visit: No (5) Congestive heart failure Status: Chronic Current Visit: No (6) Diabetes Status: Chronic Current Visit: No (7) HTN (hypertension) Status: Chronic Current Visit: No - Assessment and Plan Patient continues on Zithromax with breathing treatments and Solu-Medrol. I will have him ambulate with assistance and see if I can get him discharged in the next 2. Hospital Course Summary Disclaimer: The visit summary below is not to be considered part of the above Progress Note.
[2017-12-21] MEDS: SIMVASTATIN 10 MG TABLET PO SCH (20:24)
[2017-12-21] MEDS: TRAZODONE 100 MG TABLET PO SCH (20:24)
[2017-12-21] MEDS: SUCRALFATE 1 GM TABLET PO SCH (20:25)
[2017-12-22] MEDS: METHYLPREDNISOLONE SOD SUCC 125mg/2ml INJECTION IVP SCH ×4 (02:58→20:56)
[2017-12-22] MEDS: PANTOPRAZOLE 40 MG INJECTION IVP SCH ×2 (02:58→14:23)
[2017-12-22] MEDS: ALBUTEROL/IPRATROPIUM 2.5mg-0.5mg/3ml NEB AEROSOL SCH ×4 (03:26→20:35)
[2017-12-22] MEDS: ISOSORBIDE MONONITRATE ER 30 MG TABLET PO SCH (05:32)
[2017-12-22] MEDS: BENZONATATE 100 MG CAPSULE PO PRN ×2 (05:32→14:23)
[2017-12-22] MEDS: LEVOTHYROXINE 50 MCG TABLET PO SCH (05:32)
[2017-12-22] MEDS: INSULIN ASPART 100unit/ml INJECTION SQ PRN ×3 (05:36→21:31)
[2017-12-22] MEDS: AZITHROMYCIN 500 MG TABLET PO SCH (08:14)
[2017-12-22] MEDS: CARBAMAZEPINE 100 MG PO SCH ×2 (08:14→20:55)
[2017-12-22] MEDS: ASPIRIN 325 MG TABLET PO SCH (08:14)
[2017-12-22] MEDS: GABAPENTIN 300 MG CAPSULE PO SCH ×3 (08:15→20:55)
[2017-12-22] MEDS: HYDROCODONE/APAP 7.5 MG/325 MG TABLET PO PRN ×2 (08:15→21:03)
[2017-12-22] MEDS: ESCITALOPRAM 20 MG TABLET PO SCH (08:15)
[2017-12-22] MEDS: ENOXAPARIN 40 MG/0.4 ML INJECTION SQ SCH (08:18)
--- NOTE | 2017-12-22 17:13 | Internal Med Progress Note ---
Internal Medicine Subjective Patient seen and examined in his room. His is at the bedside. Questions answered. Benito continues with a very strong cough today. He was able to ambulate in the [place] 2 times today and is scheduled to walk one more time tonight. However, his oxygen requirements have gone up E need be on 3 L of oxygen earlier today. He is back down to 2 L at this time. Exam Vital Signs: Temperature 97.2 F 12/22/17 15:00 Pulse Rate 81 12/22/17 15:00 Respiratory Rate 20 12/22/17 15:01 Blood Pressure 148/78 H 12/22/17 15:00 Pulse Oximetry 96 12/22/17 15:00 Height/Weight/BMI: Height 5 ft 11 in Weight 79.6 kg Body Mass Index 25.2 - Constitutional Present: no acute distress, cooperative - Routine HEENT Exam Head: Present: normocephalic, atraumatic Eye: Present: EOMI, PERRL, conjunctivae pink. Absent: scleral injection ENT: Present: mucous membranes moist, oropharynx clear, nares patent - Routine Neck Exam Present: supple. Absent: JVD, lymphadenopathy, thyromegaly - Routine Chest/Breast/Axilla Exam Chest wall: Present: tenderness Axillae: Absent: lymphadenopathy - Routine Respiratory Exam Present: accessory muscle use (with pursed lip breathing), wheezes, distant breath sounds - Routine Cardiovascular Exam Present: irregular rhythm. Absent: S3, S4 - Routine Abdominal Exam Present: soft, tenderness (secondary to cough), non distended. Absent: rebound , guarding, rigid - Routine Extremities Exam Present: edema, tenderness. Absent: cyanosis, clubbing - Routine Skin Exam Present: intact. Absent: cyanosis, mottling, petechiae, urticaria, jaundice - Routine Neurological Exam Present: alert, oriented X3 - Routine Psychiatric Exam Present: normal affect, normal thought process, cooperative, good insight, good judgment. Absent: depressed, anxious Internal Medicine Results - Labs CBC & Chem 7: 12/20/17 05:54 12/20/17 05:54 Progress Note-A&P - Time Spent With Patient Total time spent is greater than 50% in coordination of care (as documented) at patient's floor/unit and/or counseling patient: 25 - 35 minutes (1) Pertussis Status: Acute Assessment and plan: Currently being treated with Zithromax 500 mg daily Current Visit: Yes (2) Acute exacerbation of chronic obstructive airways disease Status: Acute Current Visit: No (3) GERD (gastroesophageal reflux disease) Status: Acute Current Visit: No (4) Afib Status: Chronic Current Visit: No (5) Congestive heart failure Status: Chronic Current Visit: No (6) Diabetes Status: Chronic Current Visit: No (7) HTN (hypertension) Status: Chronic Current Visit: No (8) Hypoxia Status: Acute Current Visit: Yes (9) Hypoxemia Status: Acute Current Visit: Yes - Assessment and Plan Patient was able ambulate today however his oxygen needs increased and that is a little concerning with his underlying pertussis. He is tolerating his antibiotic well. However, his cough is not improving. Nevertheless, I am going to repeat his chest x-ray and lab in the morning and see if he is well enough to be discharged home. Hospital Course Summary Disclaimer: The visit summary below is not to be considered part of the above Progress Note.
--- NOTE | 2017-12-22 17:56 | XRay Report ---
INDICATION: Pertussis, COPD PROCEDURE: CHEST 2-VIEWS UPRIGHT (PA & LAT) Encounter: Initial COMPARISON: December 19, 2017 FINDINGS: Worsening posterior lower lobe consolidation seen on the lateral view. Trace pleural effusions. Upper lung douglass are clear. No pneumothorax. Cardiac silhouette and mediastinal contours are stable. Prior CABG. Impression: Worsening lower lobe airspace consolidation. .
[2017-12-22] MEDS: SUCRALFATE 1 GM TABLET PO SCH (20:55)
[2017-12-22] MEDS: SIMVASTATIN 10 MG TABLET PO SCH (20:56)
[2017-12-22] MEDS: TRAZODONE 100 MG TABLET PO SCH (20:57)
[2017-12-22] MEDS ORDERED: METOPROLOL 5mg/5ml INJECTION IVP PRN (22:00)
[2017-12-23] MEDS: PANTOPRAZOLE 40 MG INJECTION IVP SCH ×2 (02:23→15:28)
[2017-12-23] MEDS: METHYLPREDNISOLONE SOD SUCC 125mg/2ml INJECTION IVP SCH ×3 (02:23→15:28)
[2017-12-23] MEDS: ALBUTEROL/IPRATROPIUM 2.5mg-0.5mg/3ml NEB AEROSOL SCH ×3 (03:05→14:46)
[2017-12-23] MEDS: ISOSORBIDE MONONITRATE ER 30 MG TABLET PO SCH (06:07)
[2017-12-23] MEDS: INSULIN ASPART 100unit/ml INJECTION SQ PRN ×2 (06:07→12:43)
[2017-12-23] MEDS: BENZONATATE 100 MG CAPSULE PO PRN (06:07)
[2017-12-23] MEDS: LEVOTHYROXINE 50 MCG TABLET PO SCH (06:07)
[2017-12-23] MEDS: HYDROCODONE/APAP 7.5 MG/325 MG TABLET PO PRN (06:11)
[2017-12-23 08:00] VITALS: BP 165/93; TEMP 97.5
[2017-12-23] MEDS: ENOXAPARIN 40 MG/0.4 ML INJECTION SQ SCH (08:39)
[2017-12-23] MEDS: AZITHROMYCIN 500 MG TABLET PO SCH (08:39)
[2017-12-23] MEDS: ASPIRIN 325 MG TABLET PO SCH (08:39)
[2017-12-23] MEDS: GABAPENTIN 300 MG CAPSULE PO SCH ×2 (08:39→15:29)
[2017-12-23] MEDS: CARBAMAZEPINE 100 MG PO SCH (08:39)
[2017-12-23] MEDS: ESCITALOPRAM 20 MG TABLET PO SCH (08:39)
[2017-12-23 09:25] VITALS: O2SAT 97
[2017-12-23] MEDS ORDERED: ONDANSETRON ODT 4 MG TABLET PO PRN (09:34)
[2017-12-23 11:36] VITALS: PULSE 76
--- NOTE | 2017-12-23 12:09 | Discharge Summary ---
Discharge Information Date of admission: 12/20/17 02:34 Attending Physician: Matthew Barrow DO Primary care physician: Matthew Barrow DO - Discharge Diagnosis (1) Pertussis Status: Acute (2) Acute exacerbation of chronic obstructive airways disease Status: Acute (3) GERD (gastroesophageal reflux disease) Status: Acute (4) Afib Status: Chronic (5) Congestive heart failure Status: Chronic (6) Diabetes Status: Chronic (7) HTN (hypertension) Status: Chronic (8) Hypoxia Status: Acute (9) Hypoxemia Status: Acute - Laboratory Labs: 12/23/17 04:42 12/23/17 04:42 History of Present Illness HPI: This is a very nice 77 y/o male with end stage lung disease. He has 2 liters oxygen and 20 mg pred requirement daily. He had increased short of breath x 2 d. Cough productive white creamy sputum. no fever, chills or sweats. no chest pain. He has a history of CAD. no abdomen pain, no nausea/vomiting. IN the ED ABG not c/w hypercapnea. He is requiring 4 l now . After multiple breathing tx he continues to wheeze. Admit with copd exacerbation orders. Hospital Course This is a general summary of the patient's hospital course. For more details refer to the complete medical record. Time spent with patient: 25 - 35 minutes Discharge Plan - Med Rec/Dispo Referrals/Follow Up: Matthew Barrow DO [Primary Care Provider] - 01/07/18 11:00 am Michelle Instructions: COPD (Chronic Obstructive Pulmonary Disease) (GEN), Pertussis (GEN) Prescriptions: Continue Albuterol HFA Inhaler [Ventolin Hfa 90 mcg/actuation] 2 puff ORAL INH Q4HR PRN PRN Reason: Wheezing Trazodone [Desyrel] 100 mg PO HS Simvastatin [Zocor] 10 mg PO HS Primidone [Mysoline] 100 mg PO DAILY Omeprazole 40 mg PO BID Nitroglycerin [Nitrostat] 0.4 mg SL Q5M PRN PRN Reason: Chest Pain Metoprolol Succinate 50 mg PO DAILY Levothyroxine Tab [Synthroid] 50 mcg PO DAILY Gabapentin 300 mg PO TID Arformoterol Neb [Brovana Neb] 15 mcg INH BID Albuterol Neb (0.5%) [Proventil Neb (0.5%)] 2.5 mg AEROSOL Q4H PRN PRN Reason: Shortness Of Air/Wheezing Metformin [Glucophage] 1,000 mg PO BIDWM Morphine Sulfate *SR* [Ms Contin] 15 mg PO BID Potassium Chloride [K-DUR 20 mEq Tablet] 40 meq PO DAILY tab Budesonide Inhalation [Pulmicort Inhalation] 0.5 mg INH BID Bumetanide 4 mg PO DAILY Hydrocodone/APAP 7.5/325 [[place] 7.5/325] 1 tab PO Q8H PRN PRN Reason: Pain Isosorbide Mononitrate ER [Imdur] 30 mg PO DAILY Levofloxacin [Levaquin] 750 mg PO DAILY #7 tab Escitalopram [Lexapro] 20 mg PO DAILY Aspirin 325 mg PO DAILY Sucralfate [Carafate] 1 gm PO HS carBAMazepine [Carbamazepine ER] 100 mg PO BID predniSONE [Prednisone] 20 mg PO DAILY - Disposition 01 Discharged Home, Self-Care - Dismissal Complete Discharge Instructions are:: Complete
[2017-12-23 14:49] VITALS: RESP 20
== END 2017-12-23 15:46 | disposition home health service (06) | DRG 202 ==
LOC: ED 22:35 → MED 12-20 02:32 → SUATTDRO 12-20 02:34 → MED 12-20 02:34
PROVIDERS: ADMIT Emergency Medicine; ATTEND Internal Medicine

== ENCOUNTER 2018-01-17 10:51 | Inpatient (IN) ==
[2018-01-17] MEDS ORDERED: NS 1,000 ML IV SCH (11:30)
--- NOTE | 2018-01-17 12:29 | XRay Report ---
EXAM: XR acute abdomen series DICTATION LOCATION: [facility] INDICATION: SYNCOPE COMPARISON STUDY: December 22, 2017 FINDINGS: Chest: Postsurgical changes of median sternotomy. Heart size is normal. Moderate calcific atherosclerotic disease is noted. No developing airspace opacities or pleural effusions. Abdomen: Gas containing large and small bowel loops which are normal caliber. No evidence for bowel obstruction or free air. There is gas in the distal colon/rectum. Cholecystectomy clips noted. Skeletal Structures: Total left hip replacement is demonstrated. Mild spondylosis of the lumbar spine. The visualized skeletal structures are within normal limits for the patient's age. IMPRESSION: 1. Nonobstructive bowel gas pattern. 2. No acute cardiopulmonary process. .
[2018-01-17] MEDS ORDERED: NITROGLYCERIN 0.4 MG SUBLINGUAL TABLET SL PRN (13:08)
[2018-01-17] MEDS ORDERED: ALBUTEROL 2.5mg/3ml (0.083%) NEB AEROSOL PRN (13:10)
[2018-01-17] MEDS: HYDROCODONE/APAP 7.5 MG/325 MG TABLET PO PRN (13:40)
[2018-01-17] MEDS: ISOSORBIDE MONONITRATE ER 30 MG TABLET PO SCH (14:35)
[2018-01-17] MEDS: NS 1,000 ML IV SCH (14:49)
--- NOTE | 2018-01-17 14:54 | CT Scan Report ---
EXAM: CT head/brain wo con LOCATION OF DICTATION: [facility] HISTORY: SYNCOPE,HEADINJURY COMPARISON: No prior studies available for comparison. TECHNIQUE: Axial CT images through the head were performed without contrast. Iterative Reconstruction dose reducing technique was utilized. FINDINGS: The ventricles are of normal size, shape, and contour for the patient's age. There are scattered areas of low attenuation in the white matter which most likely represent changes from chronic microvascular ischemia. There is a stable partially calcified extra-axial mass abutting the anterior falx left of midline stable compared to the previous study currently measuring 2.0 x 1.8 cm compared to 2.1 x 1.9 cm on the prior study dated April 2016. The structure is most compatible with an extra-axial meningioma. There is no evidence of midline displacement. No hemorrhage, signs of acute territorial stroke, or edema is evident. There is mild to moderate deep/subcortical white matter disease. Mild age related cerebral atrophy. The visualized portions of the skull base, midface, and calvarium demonstrate no abnormality. The paranasal sinuses are well aerated and free of significant disease. The tympanic and mastoid cavities appear normal. IMPRESSION: 1. Stable extra-axial partially calcified meningioma about the left frontal lobe abutting the anterior falx. 2. Moderate deep/subcortical white matter disease likely secondary to chronic small vessel ischemia. Mild age-related cerebral atrophy. 3. No evidence for acute intraparenchymal or extra-axial hemorrhage. .
[2018-01-17] MEDS ORDERED: DOCUSATE SODIUM 100 MG CAPSULE PO PRN (15:28)
[2018-01-17] MEDS: CARBAMAZEPINE 100 MG PO SCH ×2 (15:53→20:47)
[2018-01-17] MEDS: ARFORMOTEROL NEB 15mcg/2ml AEROSOL SCH (19:02)
[2018-01-17] MEDS: BUDESONIDE INH.SOLN 0.5mg/2ml NEB AEROSOL SCH (19:03)
[2018-01-17] MEDS: METFORMIN 1,000 MG TABLET PO SCH (19:17)
[2018-01-17] MEDS: FERROUS SULFATE 324 MG TABLET PO SCH (19:17)
[2018-01-17] MEDS: SUCRALFATE 1 GM TABLET PO SCH (20:47)
[2018-01-17] MEDS: GABAPENTIN 100 MG CAPSULE PO SCH (20:48)
[2018-01-17] MEDS: PRIMIDONE 50 MG TABLET PO SCH (20:48)
[2018-01-17] MEDS: SIMVASTATIN 10 MG TABLET PO SCH (20:49)
[2018-01-18] MEDS: NS 1,000 ML IV SCH ×2 (03:21→15:56)
[2018-01-18] MEDS: CARBAMAZEPINE 100 MG PO SCH ×3 (05:14→20:14)
[2018-01-18] MEDS: LEVOTHYROXINE 50 MCG TABLET PO SCH (05:39)
[2018-01-18] MEDS: HYDROCODONE/APAP 7.5 MG/325 MG TABLET PO PRN (05:43)
[2018-01-18] MEDS ORDERED: ISOSORBIDE MONONITRATE ER 30 MG TABLET PO SCH (06:30)
[2018-01-18] MEDS: ISOSORBIDE MONONITRATE ER 30 MG TABLET PO SCH ×2 (07:43→15:32)
[2018-01-18] MEDS: ARFORMOTEROL NEB 15mcg/2ml AEROSOL SCH ×2 (08:13→19:03)
[2018-01-18] MEDS: BUDESONIDE INH.SOLN 0.5mg/2ml NEB AEROSOL SCH ×2 (08:13→19:03)
[2018-01-18] MEDS: BUMETANIDE 1 MG TABLET PO SCH (09:20)
[2018-01-18] MEDS: PRIMIDONE 50 MG TABLET PO SCH ×2 (09:22→20:14)
[2018-01-18] MEDS: ESCITALOPRAM 20 MG TABLET PO SCH (09:22)
[2018-01-18] MEDS: PredniSONE 20 MG TABLET PO SCH (09:22)
[2018-01-18] MEDS: GABAPENTIN 100 MG CAPSULE PO SCH ×3 (09:22→20:13)
[2018-01-18] MEDS: ASPIRIN *EC* 325 MG TABLET PO SCH (09:23)
[2018-01-18] MEDS: METFORMIN 1,000 MG TABLET PO SCH ×2 (09:23→18:23)
[2018-01-18] MEDS: FERROUS SULFATE 324 MG TABLET PO SCH ×2 (09:23→18:23)
[2018-01-18] MEDS ORDERED: FALL RISK - PHARMACY CONSULT MC ONE (11:26)
--- NOTE | 2018-01-18 15:53 | Wound Care Progress Note ---
Wound Center Progress Note: Pt seen for wound consultation r/t wound on L heel. Pt sitting in bed watching TV, at bedside, no complaints of pain. Pt states he has had the wound on his L heel for almost a year. Home Health was treating wound with Medihoney. The home health nurse left her employment, pt had a new home health nurse come out to his house, which he subsequently fired. The has been applying the Medihoney they had left over to the L heel wound. Pt states the wound does hurt at times. L heel: appears to be pressure related. Wound bed: 50% dry eschar with scant slough, 50% dry pink non-granulating tissue, no active drainage. reports at time the L heel does drain. The description of the drainage, according to her, is seropurulent. Unable to express any drainage at this time. Periwound: blanchable erythema, dry and scaly. Wound care: To L heel: Apply Iodosorb, cover with 2 x 2 gauze, cover all with Mepilex, change q 3 days. Float heels while sitting/in bed. Apply foam boot.
--- NOTE | 2018-01-18 15:56 | Wound Care Progress Note ---
Wound Management - Patient Status Premedicated Prior to Dressing Change: No - Wound Left Heel Wound Type: Pressure Injury Wound Staging: Stage III Length: 2.9 Width: 2.8 Depth: 0.1 Wound Bed Appearance: [place], Slough, Necrotic [place] Wound Appearance: Blanched/Dull Tunneling: No Undermining: No Drainage Amount: None Drainage Odor: No Odor Dressing Status: Changed Secondary Dressing: Foam Dressing Dressing Change Date: 01/18/18 Dressing Change Time: 12:20 Dressing Change Patient Tolerance: Tolerated Well (To L heel: Iodosorb/gauze, mepilex, change q 3 days. Float heels.)
--- NOTE | 2018-01-18 17:08 | Internal Med Progress Note ---
Internal Medicine Subjective Patient seen and examined in his room. at the bedside. Questions answered. Benito is feeling better today. He has ambulated to the bathroom and back all times. He has some appetite which is better than yesterday but still diminished. He states that his abdomen hurts when he eats too much. He denies chest pain or shortness of breath beyond his usual. Exam Vital Signs: Temperature 97.9 F 01/18/18 07:00 Pulse Rate 82 01/18/18 08:00 Respiratory Rate 18 01/18/18 10:26 Blood Pressure 119/73 01/18/18 07:00 Pulse Oximetry 98 01/18/18 08:13 Telemetry Rhythm: A-fib Height/Weight/BMI: Height 5 ft 11 in Weight 72.7 kg Body Mass Index 21.6 - Constitutional Present: no acute distress, cooperative - Routine HEENT Exam Head: Present: normocephalic, atraumatic Eye: Present: EOMI, PERRL. Absent: conjunctival icterus, scleral injection, conjunctivae pink ENT: Present: mucous membranes moist, oropharynx clear. Absent: dentition normal - Routine Neck Exam Present: supple. Absent: JVD, lymphadenopathy, thyromegaly - Routine Chest/Breast/Axilla Exam Chest wall: Present: tenderness Axillae: Absent: lymphadenopathy - Routine Respiratory Exam Present: diminished air movement. Absent: accessory muscle use, respiratory distress - Routine Cardiovascular Exam Present: irregularly irregular. Absent: S3, S4 - Routine Abdominal Exam Present: soft, normoactive bowel sounds, tenderness. Absent: rebound, guarding , rigid - Routine Extremities Exam Present: edema (trace). Absent: cyanosis, clubbing - Routine Skin Exam Comments: Heel ulcer - Routine Neurological Exam Present: alert, oriented X3, CN II-XII intact - Routine Psychiatric Exam Present: normal affect, normal thought process, cooperative, good insight, good judgment. Absent: depressed, anxious Internal Medicine Results - Labs CBC & Chem 7: 01/18/18 05:00 01/18/18 05:00 Labs: Short CBC 01/18/18 Range/Units 05:00 WBC 9.3 (4.5-11.0) T/MM3 Hgb 9.7 L (13.5-17.5) GM/DL Hct 31.5 L (41-53) % Plt Count 252 (130-400) T/MM3 BMP 01/18/18 05:00 Sodium 142 Potassium 3.9 Chloride 107 Carbon Dioxide 28 BUN 14.0 Creatinine 0.8 Glucose 93 Calcium 7.7 L Cardiac Enzymes 01/17/18 Range/Units 22:31 Total Creatine Kinase 32 L (55-170) U/L Troponin I 0.017 (0-0.12) ng/ml Liver Function 01/18/18 Range/Units 05:00 Total Bilirubin 0.40 (0.20-1.30) MG/DL AST 9 L (17-59) U/L ALT 8 (1-50) U/L Alkaline Phosphatase 72 (38-126) U/L Albumin 2.5 L (3.5-5.0) g/dL Progress Note-A&P - Time Spent With Patient Total time spent is greater than 50% in coordination of care (as documented) at patient's floor/unit and/or counseling patient: 25 - 35 minutes (1) Dehydration Status: Acute Current Visit: Yes (2) Afib Status: Chronic Current Visit: No (3) Protein-calorie malnutrition, moderate Status: Acute Current Visit: Yes (4) COPD (chronic obstructive pulmonary disease) Status: Chronic Current Visit: No (5) GERD (gastroesophageal reflux disease) Status: Chronic Current Visit: No (6) Hypoxemia Status: Chronic Current Visit: No (7) Congestive heart failure Status: Chronic Current Visit: No (8) Diabetes Status: Chronic Current Visit: No (9) HTN (hypertension) Status: Chronic Current Visit: No - Assessment and Plan Nutrition counseling took place today. We will increase his protein consumption and carefully monitor his volume status. I will also start him on a low-dose of digoxin for A. fib with heart rate control in a patient with congestive heart failure. Hospital Course Summary Disclaimer: The visit summary below is not to be considered part of the above Progress Note.
[2018-01-18 17:11] VITALS: BMI 22.3
[2018-01-18] MEDS: DIGOXIN 500 MCG/2 ML INJECTION IVP SCH ×2 (18:24→23:16)
[2018-01-18] MEDS: SIMVASTATIN 10 MG TABLET PO SCH (20:14)
[2018-01-18] MEDS: SUCRALFATE 1 GM TABLET PO SCH (20:14)
[2018-01-19] MEDS: NS 1,000 ML IV SCH (05:02)
[2018-01-19] MEDS: CARBAMAZEPINE 100 MG PO SCH ×2 (05:03→14:21)
[2018-01-19] MEDS: DIGOXIN 500 MCG/2 ML INJECTION IVP SCH (05:04)
[2018-01-19] MEDS: LEVOTHYROXINE 50 MCG TABLET PO SCH (06:08)
[2018-01-19] MEDS: ISOSORBIDE MONONITRATE ER 30 MG TABLET PO SCH ×2 (06:08→14:15)
[2018-01-19] MEDS ORDERED: PANTOPRAZOLE 40 MG TABLET PO SCH (06:30)
[2018-01-19] MEDS: ARFORMOTEROL NEB 15mcg/2ml AEROSOL SCH (06:50)
[2018-01-19] MEDS: BUDESONIDE INH.SOLN 0.5mg/2ml NEB AEROSOL SCH (06:50)
[2018-01-19 07:25] VITALS: TEMP 97.5; O2SAT 96
[2018-01-19] MEDS: PredniSONE 20 MG TABLET PO SCH (09:26)
[2018-01-19] MEDS: ASPIRIN *EC* 325 MG TABLET PO SCH (09:26)
[2018-01-19] MEDS: FERROUS SULFATE 324 MG TABLET PO SCH (09:26)
[2018-01-19] MEDS: PRIMIDONE 50 MG TABLET PO SCH (09:27)
[2018-01-19] MEDS: ESCITALOPRAM 20 MG TABLET PO SCH (09:27)
[2018-01-19] MEDS: BUMETANIDE 1 MG TABLET PO SCH (09:27)
[2018-01-19] MEDS: METFORMIN 1,000 MG TABLET PO SCH (09:27)
[2018-01-19] MEDS: GABAPENTIN 100 MG CAPSULE PO SCH ×2 (09:32→14:14)
[2018-01-19] MEDS ORDERED: DIGOXIN 125 MCG TABLET PO SCH (12:00)
[2018-01-19] MEDS: HYDROCODONE/APAP 7.5 MG/325 MG TABLET PO PRN (14:26)
[2018-01-19 15:13] VITALS: BP 127/71; PULSE 73
--- NOTE | 2018-01-19 15:54 | Discharge Summary ---
Discharge Information Date of admission: 01/17/18 10:53 Attending Physician: Matthew Barrow DO Primary care physician: Matthew Barrow DO Consults: 01/18/18 09:09 [facility] Consult [CONS] Routine - Discharge Diagnosis (1) Dehydration Status: Acute (2) Afib Status: Chronic (3) Protein-calorie malnutrition, moderate Status: Acute (4) COPD (chronic obstructive pulmonary disease) Status: Chronic (5) GERD (gastroesophageal reflux disease) Status: Chronic (6) Hypoxemia Status: Chronic (7) Congestive heart failure Status: Chronic (8) Diabetes Status: Chronic (9) HTN (hypertension) Status: Chronic - Laboratory Labs: 01/18/18 05:00 01/18/18 05:00 History of Present Illness HPI: Patient was admitted after a syncopal event at home in which she fell backwards and hit his head. When he was seen in the office, he was quite lethargic and appeared dehydrated. Hospital Course This is a general summary of the patient's hospital course. For more details refer to the complete medical record. Patient was admitted and given IV fluid hydration. He was also evaluated with CT of the head which demonstrated no evidence of subdural hematoma. He was also restarted on his long-acting morphine and continued with IV fluid hydration as well as nutrition consultation. It was apparent that he had protein calorie malnutrition as well as dehydration. Both of these were corrected and he appears to be much better at this time. Discharge instructions were reviewed with the patient and his . Time spent with patient: greater than 35 minutes Resuscitation Status: Do Not Resuscitate Discharge Plan - Med Rec/Dispo Referrals/Follow Up: Matthew Barrow DO [Primary Care Provider] - 01/26/18 11:00 am Prescriptions: Continue Albuterol HFA Inhaler [Ventolin Hfa 90 mcg/actuation] 2 puff ORAL INH Q4HR PRN PRN Reason: Wheezing Trazodone [Desyrel] 100 mg PO HS Simvastatin [Zocor] 10 mg PO HS Primidone [Mysoline] 50 mg PO BID Nitroglycerin [Nitrostat] 0.4 mg SL Q5M PRN PRN Reason: Chest Pain Metoprolol Succinate 50 mg PO DAILY Levothyroxine Tab [Synthroid] 50 mcg PO DAILY Arformoterol Neb [Brovana Neb] 15 mcg INH BID Albuterol Neb (0.5%) [Proventil Neb (0.5%)] 2.5 mg AEROSOL Q4H PRN PRN Reason: Shortness Of Air/Wheezing Metformin [Glucophage] 1,000 mg PO BIDWM Morphine Sulfate *SR* [Ms Contin] 15 mg PO BID Budesonide Inhalation [Pulmicort Inhalation] 0.5 mg INH BID Hydrocodone/APAP 7.5/325 [[place] 7.5/325] 1 tab PO Q8H PRN PRN Reason: Pain Gabapentin [Neurontin] 200 mg PO HS Pantoprazole Sodium [Protonix] 1 tab PO ACB Ferrous Sulfate [Feosol] 324 mg PO BID Docusate Sodium 100 mg PO DAILY Escitalopram [Lexapro] 20 mg PO DAILY Aspirin 325 mg PO DAILY Sucralfate [Carafate] 1 gm PO HS carBAMazepine [Carbamazepine ER] 100 mg PO TID predniSONE [Prednisone] 20 mg PO DAILY Gabapentin [Neurontin] 100 mg PO 0900,1500 Changed Bumetanide 1 mg PO DAILY #30 tab Potassium Chloride [K-DUR 20 mEq Tablet] 20 meq PO DAILY #0 tab Isosorbide Mononitrate ER [Imdur] 30 mg PO BID #60 tab Discontinued Levofloxacin [Levaquin] 750 mg PO DAILY #7 tab - Disposition 01 Discharged Home, Self-Care - Dismissal Complete Discharge Instructions are:: Complete
[2018-01-19 16:38] VITALS: RESP 18
== END 2018-01-19 16:25 | disposition home health service (06) | DRG 640 ==
LOC: MED 10:53
PROVIDERS: ADMIT Internal Medicine; ATTEND Internal Medicine

== ENCOUNTER 2018-02-22 15:54 | Observation (INO) ==
--- OUTSIDE RECORDS SUMMARY | 2018-02-22 16:08 | External Medical Summary | Referral Summary ---
:1940 Author Organization [facility] Address [address] [place] [address] ADAM Fink [phone] Care Team Providers Name Role Phone DanialMatthew Primary Care Physician Encounter VC Date(s): 12/15/16 - 12/15/16 [facility] [address] [place] [address] ADAM Fink [phone] Discharge Diagnosis: Umbilical hernia Discharge Disposition: 01-Home or Self Care Attending Physician: Jules Eisenberg MD Admitting Physician: Jules Eisenberg MD Vital Signs Most recent to oldest [Reference Range]: 1 Temperature Tympanic [36.6-38.1 degC] 35.9 degC *LOW* (12/15/16 2:05 PM) Peripheral Pulse Rate [60-100 bpm] 83 bpm (12/15/16 2:05 PM) Blood Pressure [90-140/60-90 mmHg] 158/88 mmHg *HI* (12/15/16 2:05 PM) SpO2 94 % (12/15/16 2:05 PM) Problem List Condition Effective Dates Status Health Status Informant Acute pain(Confirmed) Active Anxiety(Confirmed) Active CAD (coronary artery Active disease)(Confirmed) At risk for unstable blood glucose Active level(Confirmed)1 At risk of pressure sore(Confirmed) Active COPD (chronic obstructive pulmonary Active disease)(Confirmed) GERD (gastroesophageal reflux Active disease)(Confirmed) Impaired skin integrity(Confirmed)2 Active anxietDepression(Confirmed) Active MRSA(Confirmed) Active Tissue perfusion Active alteration(Confirmed)3 1Problem added automatically by system based on initiation of At Risk for Unstable Blood Glucose Planof [id number] added automatically by system based on initiation of Impaired Skin Integrity Plan of [id number] added automatically by system based on initiation of Tissue Perfusion Cerebral Plan of Care Allergies, Adverse Reactions, Alerts Substance Reaction Severity Status sulfamethoxazole Anaphylaxis Severe Active Medications albuterol 5 mg/mL (0.5%) inhalation solution 2.5 mg 0.5 mL, NEB, q2hr (scheduled), Other (See Comment), 0 Refill(s) Start Date: 03/13/15 Status: Orderedaspirin 325 mg, Oral, Daily, 0 Refill(s) Start Date: 03/06/15 Status: OrderedBrovana 15 mcg/2 mL inhalation solution 1 Each, NEB, BID, # 60 Each, 0 Refill(s) Start Date: 03/06/15 Status: Orderedbudesonide 0.5 mg/2 mL inhalation suspension 0.5 mg 2 mL, NEB, BID, # 120 mL, 0 Refill(s) Start Date: 03/06/15 Status: Orderedescitalopram 20 mg oral tablet 20 mg 1 tabs, Oral, Daily, 0 Refill(s) Start Date: 03/06/15 Status: Orderedfurosemide 40 mg oral tablet 80 mg 2 tabs, Oral, Daily, 0 Refill(s) Start Date: 03/06/15 Status: Orderedgabapentin 300 mg oral capsule 600 mg 2 caps, Oral, TID, # 180 caps, 0 Refill(s), Pharmacy: Pharmacy - [place], [place], all other refills through Dr. Blake Barrow, 2 caps Oral TID Start Date: 03/13/15 Status: Orderedlevothyroxine 50 mcg (0.05 mg) oral tablet 50 mcg 1 tabs, Oral, Daily, 0 Refill(s) Start Date: 03/06/15 Status: OrderedmetFORMIN 1,000 mg, Oral, BID, 0 Refill(s) Start Date: 03/06/15 Status: OrderedMetoprolol Succinate ER 50 mg oral tablet, extended release 50 mg 1 tabs, Oral, Daily, 0 Refill(s) Start Date: 03/06/15 Status: OrderedNitrostat 0.4 mg sublingual tablet 0.4 mg 1 tabs, SubLingual, q5min, as needed for chest pain, If chest pain not relieved in 5 minutes after first dose, seek immediate medical attention, # 100 tabs, 0 Refill(s) Start Date: 03/06/15 Status: Orderedomeprazole 40 mg oral delayed release capsule 40 mg 1 caps, Oral, Daily, 0 Refill(s) Start Date: 03/06/15 Status: OrderedPercocet 7.5/325 oral tablet 1 tabs, Oral, q4hr, Pain Moderate (4-6), 0 Refill(s) Start Date: 03/13/15 Status: OrderedPlavix 75 mg oral tablet 75 mg 1 tabs, Oral, Daily, # 30 tabs, 0 Refill(s) Start Date: 12/15/16 Status: Orderedpotassium chloride 20 mEq oral tablet, extended release 20 mEq 1 tabs, Oral, Daily, 0 Refill(s) Start Date: 03/06/15 Status: OrderedPradaxa 150 mg oral capsule 150 mg 1 caps, Oral, BID, # 60 caps, 6 Refill(s), Pharmacy: Pharmacy - [place], [place] Start Date: 03/13/15 Status: OrderedpredniSONE 20 mg oral tablet See Instructions, take 1/2 tablet daily (10mg) and if you become short of breath you can take up to 40mg daily but only for one to two days then drop back down to 10mg daily., 0 Refill(s) Start Date: 03/06/15 Status: Orderedprimidone 50 mg oral tablet 100 mg 2 tabs, Oral, Bedtime (once a day), 0 Refill(s) Start Date: 03/06/15 Status: Orderedsimvastatin 10 mg oral tablet 10 mg 1 tabs, Oral, Bedtime (once a day), 0 Refill(s) Start Date: 03/06/15 Status: OrderedtraMADol 50 mg oral tablet 50 mg 1 tabs, Oral, q4hr, as needed for pain, every 4-6 hours, 0 Refill(s) Start Date: 03/06/15 Status: OrderedtraZODone 100 mg oral tablet 100 mg 1 tabs, Oral, Bedtime (once a day), 0 Refill(s) Start Date: 03/06/15 Status: OrderedVentolin HFA 90 mcg/inh inhalation aerosol 2 puffs, Inhalation, q4hr, as needed for wheezing, 0 Refill(s) Start Date: 03/06/15 Status: Ordered Results No data available for this section Immunizations Given and Recorded Vaccine Date Status Refusal Reason influenza virus vaccine, live 05/15/12 Given Procedures Procedure Date Related Diagnosis Body Site Hx of CABG 2012 FH: cholecystectomy1 06/2009 Esophagogastroduodenoscopy2 07/04/08 Colonoscopy 12/2006 Colonoscopic polypectomy3 2003 Left inguinal hernia 1970 Appendectomy Cardiac catheter Cardiac conduit Hip replacement 1Dr. [id number]. Cuniqa4Pt. Roeser, polyps Social History Social History Type Response Smoking Status Former smoker Assessment and Plan Extracted from: Title: Office Visit Note Author: Jules Eisenberg MD Date: 12/15/16 Assessment/Plan 1.Umbilical hernia Ordered: Office Visit Level 4 New [id number] Plan:Umbilical herniorrhaphy with potential incorporation of meshif deemedappropriate surgical candidate froma medical standpointbyPCP and cardiology: I did review the patient's chart including office note performed by his PCP fromApr2016.I spent a fair amount of time discussing hernias as an entitywith the patientand his . I informed the patient that I felt that one could make an argument for proceeding with an elective repairof his umbilical herniagiven the fact that the patient reports that the hernia has became largerin its overall sizeand the fact thatit appearsat times it is causing him an element of discomfort. I informed the patient however I am concernedabout the potential risk associat ed with surgery given his significant medical comorbidities. I do feel the surgery could be carried out undersome lightconscious sedation and local anestheticwhich would decrease hisoperative risk. I informed the patient that I would like to checkwith his cardiologistand PCPprior to surgeryin regards to the potentialrisk of discontinuing his anticoagulationand his operative ris k from a medical/cardiac standpoint. I didgo ahead today and discuss in detail with the patient what an umbilical herniorrhaphy withpotential incorporation of mesh entailed and its associated risk swhich included but was not inclusive of bleeding and infection, as well as potential for recurrence. Patient was tentatively scheduled forsurgery in the next couple of months. In the interim we willcontact his PCP andcardiologistas stated above.
[2018-02-22 16:30] VITALS: BMI 22.1
[2018-02-22] MEDS: NS 1,000 ML IV SCH ×3 (17:13→21:33)
[2018-02-22] MEDS ORDERED: PROMETHAZINE 25 MG INJECTION IVP PRN (17:21)
[2018-02-22] MEDS: CEFEPIME 2 GM in NS 100 ML IV SCH (17:29)
[2018-02-22] MEDS ORDERED: HYDROCODONE/APAP 7.5 MG/325 MG TABLET PO PRN (18:28)
[2018-02-22] MEDS ORDERED: NITROGLYCERIN 0.4 MG SUBLINGUAL TABLET SL PRN (18:28)
[2018-02-22] MEDS ORDERED: ALBUTEROL 2.5mg/3ml (0.083%) NEB AEROSOL PRN (18:28)
[2018-02-22] MEDS: BUDESONIDE INH.SOLN 0.5mg/2ml NEB AEROSOL SCH (19:59)
[2018-02-22] MEDS: ARFORMOTEROL NEB 15mcg/2ml AEROSOL SCH (19:59)
[2018-02-22] MEDS: PRIMIDONE 50 MG TABLET PO SCH (20:25)
[2018-02-22] MEDS: SUCRALFATE 1 GM TABLET PO SCH ×2 (20:26→21:16)
[2018-02-22] MEDS ORDERED: SIMVASTATIN 10 MG TABLET PO SCH (21:00)
[2018-02-22] MEDS ORDERED: GABAPENTIN 100 MG CAPSULE PO SCH (21:00)
[2018-02-23] MEDS ORDERED: DIPHENHYDRAMINE 2% CREAM 28gm TOP PRN (01:44)
[2018-02-23] MEDS: CEFEPIME 2 GM in NS 100 ML IV SCH (04:30)
[2018-02-23] MEDS: ISOSORBIDE MONONITRATE ER 30 MG TABLET PO SCH ×3 (05:56→13:51)
[2018-02-23] MEDS ORDERED: PANTOPRAZOLE 40 MG TABLET PO SCH (06:30)
[2018-02-23] MEDS ORDERED: LEVOTHYROXINE 50 MCG TABLET PO SCH (06:30)
[2018-02-23] MEDS: ARFORMOTEROL NEB 15mcg/2ml AEROSOL SCH (06:43)
[2018-02-23] MEDS: BUDESONIDE INH.SOLN 0.5mg/2ml NEB AEROSOL SCH (06:44)
[2018-02-23] MEDS: NS 1,000 ML IV SCH ×2 (07:03→10:37)
[2018-02-23] MEDS ORDERED: METFORMIN 1,000 MG TABLET PO SCH (08:00)
[2018-02-23] MEDS ORDERED: FERROUS SULFATE 324 MG TABLET PO SCH (08:00)
[2018-02-23] MEDS ORDERED: PredniSONE 20 MG TABLET PO SCH (08:00)
--- NOTE | 2018-02-23 08:47 | XRay Report ---
Indication: poss sepsis PROCEDURE: PA view of the chest with supine and upright AP views of the abdomen Encounter: Initial Comparison: January 17, 2018 FINDINGS: The lungs are clear. There is no abnormal airspace opacity, pleural effusion or pneumothorax identified. Some type of artifact projecting over both hemithoraces. The heart size, pulmonary vasculature and mediastinum are stable. Prior CABG. There is no free air on the upright view. The bowel gas pattern is nonobstructive and nonspecific. Gas is seen in nondilated small and large bowel to the level of the rectum. Minimal stool in the colon. Left hip replacement. Cholecystectomy clips. IMPRESSION: 1. No acute cardiopulmonary abnormality. 2. No evidence of acute obstruction or free air. .
[2018-02-23] MEDS ORDERED: ESCITALOPRAM 20 MG TABLET PO SCH (09:00)
[2018-02-23] MEDS ORDERED: ASPIRIN 325 MG TABLET PO SCH (09:00)
[2018-02-23] MEDS ORDERED: DOCUSATE SODIUM 100 MG CAPSULE PO SCH (09:00)
[2018-02-23] MEDS: GABAPENTIN 100 MG CAPSULE PO SCH ×2 (09:22→15:35)
[2018-02-23] MEDS: PRIMIDONE 50 MG TABLET PO SCH (09:23)
[2018-02-23] MEDS: ONDANSETRON 4 MG/2 ML INJECTION IVP PRN ×2 (11:44→15:34)
--- NOTE | 2018-02-23 12:58 | Wound Care Progress Note ---
Wound Center Progress Note: Pt seen for wound consult r/t ulcer on L heel. Pt resting in bed, eating breakfast, no complaints of pain. Pt has an ulcer on his L heel which he states he has had for months. In the past, home health was dressing wound with "some sort of iodine product." Pt reports in the past the wound has been painful, but it does not hurt now. L heel: PI unstageable. Wound bed: 100% soft yellow slough, small dried serosanguineous drainage on dressing removed, no active drainage. Periwound: blanchable erythema. L leg/foot has 2+ edema, erythemic. R leg/foot has 1+ edema. Wound tx: Apply Iodosorb to wound bed, cover with Mepilex , change q 3 days. Off load heels, apply yellow foam boots to bilateral heels.
--- NOTE | 2018-02-23 13:01 | Wound Care Progress Note ---
Wound Management - Patient Status Premedicated Prior to Dressing Change: No - Wound Left Heel Wound Type: Pressure Injury Wound Staging: Unstageable Length: 3.5 Width: 3 Wound Bed Appearance: Slough [place] Wound Appearance: Blanched/Dull Drainage Description: Sanguineous Drainage Amount: Scant Drainage Odor: No Odor Dressing Status: Changed Secondary Dressing: Foam Dressing Dressing Change Date: 02/23/18 Dressing Change Time: 10:00 Dressing Change Patient Tolerance: Tolerated Well (Iodosorb to wound bed, cover with mepilex, change q 3 days, elevate heels) Microbiology: Microbiology 02/22/18 17:03 Heel, Left Gram Stain - Final 02/22/18 17:03 Heel, Left Deep Wound Culture - Preliminary Gram Negative Shivam 02/22/18 17:29 Midline Blood Culture - Preliminary Culture Initiated - Results Pending 02/22/18 17:09 Midline Blood Culture - Preliminary Culture Initiated - Results Pending
[2018-02-23 15:34] VITALS: BP 104/61; PULSE 83; RESP 18; TEMP 98.2; O2SAT 95
[2018-02-23] MEDS ORDERED: FALL RISK - PHARMACY CONSULT MC ONE (15:40)
--- NOTE | 2018-02-23 15:59 | Discharge Summary ---
Discharge Information Date of admission: 02/22/18 15:59 Anticipated date of discharge: 02/23/18 Attending Physician: Matthew Barrow DO Primary care physician: Matthew Barrow DO Consults: 02/22/18 16:53 [facility] Consult [CONS] Routine - Laboratory Labs: 02/22/18 17:10 02/22/18 19:07 - Microbiology Microbiology 02/22/18 17:03 Heel, Left Gram Stain - Final 02/22/18 17:03 Heel, Left Deep Wound Culture - Preliminary Gram Negative Shivam 02/22/18 17:29 Midline Blood Culture - Preliminary Culture Initiated - Results Pending 02/22/18 17:09 Midline Blood Culture - Preliminary Culture Initiated - Results Pending History of Present Illness HPI: Patient was admitted from the office with acute gastroenteritis with nausea vomiting and dehydration. Hospital Course This is a general summary of the patient's hospital course. For more details refer to the complete medical record. Time spent with patient: 25 - 35 minutes Resuscitation Status: Do Not Resuscitate Discharge Plan - Med Rec/Dispo Referrals/Follow Up: Wound Care,[facility] [Non-Staff] - Prescriptions: Continue Albuterol HFA Inhaler [Ventolin Hfa 90 mcg/actuation] 2 puff ORAL INH QID PRN PRN Reason: Wheezing Simvastatin [Zocor] 10 mg PO HS Primidone [Mysoline] 50 mg PO BID Nitroglycerin [Nitrostat] 0.4 mg SL Q5M PRN PRN Reason: Chest Pain Metoprolol Succinate 50 mg PO DAILY Levothyroxine Tab [Synthroid] 50 mcg PO DAILY Arformoterol Neb [Brovana Neb] 15 mcg INH BID Metformin [Glucophage] 1,000 mg PO BIDWM Morphine Sulfate *SR* [Ms Contin] 15 mg PO BID PRN PRN Reason: Pain Hydrocodone/APAP 7.5/325 [[place] 7.5/325] 1 tab PO Q8H PRN PRN Reason: Pain Gabapentin [Neurontin] 200 mg PO HS Pantoprazole Sodium [Protonix] 1 tab PO ACB Ferrous Sulfate [Feosol] 324 mg PO BID Docusate Sodium 100 mg PO DAILY Bumetanide 1 mg PO DAILY #30 tab Escitalopram [Lexapro] 20 mg PO DAILY Aspirin 325 mg PO DAILY Sucralfate [Carafate] 1 gm PO HS carBAMazepine [Carbamazepine ER] 100 mg PO DAILY predniSONE [Prednisone] 20 mg PO DAILY Gabapentin [Neurontin] 100 mg PO 0900,1500 Isosorbide Mononitrate ER [Imdur] 30 mg PO BID #60 tab - Disposition 01 Discharged Home, Self-Care - Dismissal Complete Discharge Instructions are:: Complete
== END 2018-02-23 15:30 | disposition home or self-care (01) ==
LOC: MED
PROVIDERS: ADMIT Internal Medicine; ATTEND Internal Medicine